=== PATIENT | female | born 1950 | race Caucasian/White ===

== ENCOUNTER 2017-05-16 06:19 | Emergency (ER) | payer MEDICARE, OTHER ==
[~2017-05-16] VITALS: Ht 172.7 cm; Wt 131.5 kg
[~2017-05-16 06:19] MED LIST: ADULT LOW DOSE81 MG PO; ALDACTONE50 MG PO; AMLODIPINE BESYL5 MG PO; ASACOL HD800 MG PO; ASPIRIN EC81 MG PO; CARDIZEM30 MG PO; CEPHALEXIN500 MG PO; DESIPRAMINE HCL25 MG PO; DICLOFENAC SODI75 MG PO; DOXYCYCLINE HY100 MG PO; FUROSEMIDE40 MG PO; HYDROCODONE-CH473 ML PO; HYDROXYCHLOROQ200 MG PO; K-TAB10 MEQ PO; KEFLEX500 MG PO; KLOR-CON 1010 MEQ PO; LEVOTHYROXINE150 MCG PO; LORAZEPAM0.5 MG PO; NORCO 5-325 TA1 EACH PO; NORCO 7.5-3251 EACH PO; NORPRAMIN25 MG PO; OMEPRAZOLE20 MG PO; PLAQUENIL200 MG PO; POTASSIUM CHLO20 ME1 PO; PREDNISONE20 MG PO; PRILOSEC20 MG PO; PROAIR HFA8.5 GM INH; PROBIOTIC ACID1 EAC1 PO; SIMVASTATIN20 MG PO; SIMVASTATIN40 MG PO; SPIRONOLACTONE50 MG PO; TUSSIONEX PENN480 ML PO; VERAPAMIL ER180 M1 PO; VITAMIN D250000 UNIT PO; VITAMIN D5000 UNIT PO
[2017-05-16] MEDS ORDERED: NORCO 5-325 TA1 EACH PO (06:47)
[2017-05-16] MEDS ORDERED: LOSARTAN POTASS50 MG PO (06:50)
[2017-05-16] MEDS ORDERED: CULTURELLE1 EACH PO (06:52)
[2017-05-16] MEDS ORDERED: ASACOL HD800 MG PO (06:52)
[2017-05-16] MEDS ORDERED: IMODIUM A-D2 M2 PO (06:54)
[2017-05-16] MEDS ORDERED: ONDANSETRON ODT8 MG PO (08:15)
== END 2017-05-16 08:30 | disposition home or self-care (01) ==
LOC: ED 06:19
DX: A08.4 Viral intestinal infection, unspecified (principal); I10 Essential (primary) hypertension; K21.9 Gastro-esophageal reflux disease without esophagitis; E03.9 Hypothyroidism, unspecified; E78.5 Hyperlipidemia, unspecified; Z90.710 Acquired absence of both cervix and uterus; Z90.49 Acquired absence of other specified parts of digestive tract; Z90.89 Acquired absence of other organs; Z88.8 Allergy status to other drugs, medicaments and biological substances; Z88.2 Allergy status to sulfonamides; Z91.041 Radiographic dye allergy status; Z88.5 Allergy status to narcotic agent; Z91.048 Other nonmedicinal substance allergy status; Z79.899 Other long term (current) drug therapy; Z79.82 Long term (current) use of aspirin
CPT/HCPCS: 36415; 80053; 81001; 83690; 85025; 96361; 96374; 99284; J2405; J7030

== ENCOUNTER 2017-05-16 21:37 | Observation (INO) | payer MEDICARE, OTHER ==
[~2017-05-16] VITALS: Ht 172.7 cm; Wt 131.2 kg
[~2017-05-16 21:37] MED LIST changes: +CULTURELLE1 EACH PO; +IMODIUM A-D2 M2 PO; +LOSARTAN POTASS50 MG PO; +ONDANSETRON ODT8 MG PO
--- NOTE | 2017-05-17 00:29 | NUR ---
HANDOFF REPORT RECEIVED FROM KRISTINE GARNICA IN ED. PT TO ARRIVE VIA STRETCHER WITH MANAGER OF BUSINESS RN.
--- NOTE | 2017-05-17 00:35 | NUR ---
PT ARRIVES TO MEDICAL SURGICAL FLOOR WITH GL ACCOUNTANT KRISTINE GREEN. APPLIED NON-SLIP SOCKS, ASSISTED PT WITH SBA TO AMBULATE TO RESTROOM FOR LIQUID BM. PT BACK TO BED, BOWEL TONES ACTIVE X 4, PT REPORTS TENDERNESS IN UPPER ABDOMINAL BILATERALLY, LLQ W PALPATION. PT NAUSEOUS, BUT HAS APPETITE, BROUGHT PT JELLO, ICE WATER. PT UP TO RESTROOM AGAIN, INSTRUCTED TO USE CALL LIGHT IN RESTROOM WHEN FINISHED. ANDREWS IN ROOM, TO STAY NIGHT. IVF INFUSING WNL, IV SITE FLUSHES WELL.
--- NOTE | 2017-05-17 01:40 | NUR ---
ADMINISTERED 650 MG ACETAMINOPHEN FOR 01/02 PT REPORTED LING. ADMINISTERED PROTONIX IV, PROVIDED EDUCATION. IVF INFUSING WNL AT 125 ML/HR. PT RESTING, AT BEDSIDE. LIGHTS OFF IN ROOM. PT DENIES REQUESTS AT THIS TIME, INSTRUCTED TO USE CALL LIGHT FOR ANY NEEDS.
--- NOTE | 2017-05-17 01:59 | NUR ---
NURSE IN ROOM
--- NOTE | 2017-05-17 02:48 | NUR ---
CHECKED ON PT, RR 24, APPEARS TO BE SLEEPING, BREATHING NON-LABORED, EYES CLOSED, LIGHTS OFF IN ROOM. IVF INFUSING.
--- NOTE | 2017-05-17 04:49 | NUR ---
IN PT ROOM TO CHECK ON PT. PT LYING IN BED AWAKE. ASSISTED PT TO RESTROOM, INSTRUCTED TO USE CALL LIGHT WHEN FINISHED.
--- NOTE | 2017-05-17 05:07 | NUR ---
PT BACK IN BED. CONTINUES TO HAVE NAUSEA, ADMINISTERED PRN ZOFRAN. BOWEL TONES ACTIVE X 4, ABD SOFT. PT CONTINUES TO HAVE LOOSE STOOL. LUNGS CLEAR THROUGHOUT ALL LOBES. PT REQUESTED FRESH ICE WATER. CALL LIGHT IN REACH. LIGHTS OFF IN ROOM.
--- NOTE | 2017-05-17 06:11 | NUR ---
PT ARRIVED TO MED SURG FLOOR AT 0035, HAS HAD LOOSE BMS THROUGHOUT SHIFT, SLEPT FOR MOST OF MORNING. PT RECEIVED IV ZOFRAN X 1 FOR NAUSEA, HAS HAD NO EMESIS THIS SHIFT. CONTINUES TO RECEIVE IVF WNL. RECEIVED TYLENOL X 1 FOR LING. INDEPENDENT IN ROOM WITH SBA, STEADY ON FEET, USES CALL LIGHT APPROPRIATELY.
--- NOTE | 2017-05-17 06:27 | NUR ---
PATIENT UP TO THE BATHROOM. SHE HAD A LARGE LIQUID STOOL. PATIENT COMPLAINS OF HEARTBURN AND 4/10 PAIN IN HER STOMACH. SHE DENIED THE NEED FOR PAIN MEDICATION. 0700 MEDS ADMINISTERED PER ORDER. PATIENT IS RESTING IN THE BED. DENIES FURTHER NEEDS. HER IS IN THE ROOM. CALL LIGHT IN REACH.
--- NOTE | 2017-05-17 07:30 | NUR ---
RECIEVED REPORT FROM KRISTINE MURILLO. PT ASLEEP AFTER LONG NIGHT. SL. PT APPEARS COMFORTABLE.
--- NOTE | 2017-05-17 07:34 | NUR ---
REPORT RECEIVED FROM KRISTINE MURILLO. PT ASLEEP. IV @125. IN ROOM.
--- NOTE | 2017-05-17 10:15 | NUR ---
PT WALKED TO BATHROOM, VOIDED, STOOL SAMPLE COLLECTED. PT THEN RETURNED TO BED AND IS NOW RESTING SAFELY WITH CALL LIGHT IN REACH. PT WAS OFFERED A SHOWER, SHE SAID SHE WILL THINK ABOUT IT. WILL CHECK AGAIN
--- NOTE | 2017-05-17 10:26 | NUR ---
PT UP TO THE RESTROOM FOR ANOTHER LOOSE STOOL. ABLE TO GET A STOOL SAMPLE THIS TIME.
--- NOTE | 2017-05-17 12:30 | NUR ---
PT SITTING IN BED WITH AT SIDE. WATCHING TV. DENIES CONCERNS.
--- NOTE | 2017-05-17 12:53 | NUR ---
PATIENT HAD A LOOSE CHUNKY BM THAT WAS GREEN SHE GOT IT ALL OVER HER GOWN, AYAKA CARE DONE AND GOWN CHANGED.
--- NOTE | 2017-05-17 14:00 | NUR ---
PT UP TO RESTROOM FOR ANOTHER LOOSE STOOL. VERY SMALL ONE. GREEN. REFILLED ICE WATER.
--- NOTE | 2017-05-17 14:01 | NUR ---
PT IS RESTING IN BED WTIH CALL IN REACH. PT WOULD LIKE TO SHOWER, WILL ASK NURSE TO SLINE LOCK PT.
--- NOTE | 2017-05-17 15:40 | NUR ---
PT IS CURRENTLY SHOWERING HERSELF. LINENS HAVE BEEN CHANGED
--- NOTE | 2017-05-17 15:55 | NUR ---
PT TOOK LONG HOT SHOWER AFTER HER NAP AND NOWS FEELS MUCH BETTER. STATES THAT SHE HAD MORE ENERGY THAN SHE THOUGHT. BACK TO BED WITH CLEAN SHEETS.
--- NOTE | 2017-05-17 18:09 | NUR ---
PATIENT IS LAYING IN BED, WE ORDERED HER A TRAY SHE DIDNT RECIEVE ANYTHING FOR DINNER, SHE ALSO ASKED O USE THE RESTROOM.
--- NOTE | 2017-05-17 18:37 | NUR ---
PT UP TO RESTROOM FOR ANOTHER SMALL LOOSE STOOL. STATES THAT IT SEEMS TO BE SUBSIDING.
--- NOTE | 2017-05-17 20:25 | NUR ---
UP TO BRP WITH ONE ASSIST, VOIDED AND HAD LIQUID BM, NO C/O PAIN OR N/V
--- NOTE | 2017-05-17 20:57 | NUR ---
V/S TAKEN BY KRISTINE BABB. I&O TAKEN. STANDBY ASSISTED TO THE BATHROOM AND BACK TO BED, FAMILY IN THE ROOM.
--- NOTE | 2017-05-17 22:12 | NUR ---
PT UP TO BRP, ONE ASSIST, VOIDED CLEAR YELLOW URINE . HAD LIQUID BM, BACK TO BED, TOLERATED WELL, NO REQUEST
--- NOTE | 2017-05-18 01:54 | NUR ---
up to brp, voided and had liquid bm, no c/o pain, back to bed, one assist, tolerated well, ivf in place
--- NOTE | 2017-05-18 02:43 | NUR ---
V/S I&O FOR 0200 AND WT DONE.
--- NOTE | 2017-05-18 05:39 | NUR ---
V/S I&O DONE. STANDBY ASSISTED PATIENT TO BATHROOM AND BACK TO BED. PATIENT DID NOT NEED ANYTHING AT THE MOMENT.
--- NOTE | 2017-05-18 06:06 | NUR ---
PT CURRENTLY RESTING. HAS CONTINUESD TO HAVE FREQUENCY OF URINATION AND LIQUID STOOLS. GETS UP WITH ONE ASSIST , IVF INFUSING W/O PROBLEMS. NO C/O PAIN OR N/C THIS SHIFT. NO REQUESTS. COOPERATIVE WITH PROCEDURE. AT BEDSIDE
--- NOTE | 2017-05-18 06:38 | NUR ---
PT C/O H/A. MEDICATED WITH TYLENOL 650MG PO. AWAKE, PLEASANT, NO OTHER REQUESTS, NO C/O N/V, TOLERATING CLEAR LIQUIDS DIET WELL
--- NOTE | 2017-05-18 07:57 | NUR ---
REPORT RECIEVED FROM KRISTINE BABB. PT AWAKE AND STATES THAT SHE HOPES TO GO HOME TODAY AFTER TRYING AN ADVANCED DIET. STATES THAT HER DIAHRREA HAS DECREASED.
--- NOTE | 2017-05-18 10:22 | NUR ---
PT STATES THE MAG RIDER BURNED EVEN WHEN RUNNING CONCURRENT. MAG DONE, NOW RUNNING K.
--- NOTE | 2017-05-18 11:34 | NUR ---
CALLED DR DESAI TO ASK FOR ADVANCED DIET PER PT REQUEST. HE ORDERED REG. ADVISED PT TO GO SLOW AND ORDER SOMETHING EASILY DIGESTABLE. CHARGE GOT SECOND IV IN RIGHT HAND AND PT STATES IT FEELS A LITTLE BETTER BUT STILL CAMEJO.
--- NOTE | 2017-05-18 14:53 | NUR ---
PT REPORTED TO REALTY SPECIALIST SHE HAD MORE DIAHRREA, THOUGHT IT WAS COMING FROM THE IV MAG RIDER. CALLED PHARM, NOT LISTED A SIDE EFFECT.
--- NOTE | 2017-05-18 16:12 | NUR ---
[facility] LAB CAME TO DRAW AT 10 TO 1600. AWAITING RESULTS.
--- NOTE | 2017-05-18 16:25 | NUR ---
PT HOPES TO GO HOME THIS EVENING IF LABS STABLIZE. NEW IV STARTED THIS AFTERNOON. GIVEN MULTIPLE K+ AND MAG RIDERS TODAY.
[2017-05-18] MEDS ORDERED: K-TAB10 MEQ PO (16:37)
--- NOTE | 2017-05-18 16:46 | NUR ---
CALLED DR DESAI REGARDING LAB RESULTS. HE IS WRITING DISCHARGE ORDERS AND A SCRIPT FOR FOLLOW UP LAB WORK.
== END 2017-05-18 17:40 | disposition home or self-care (01) ==
LOC: ED 21:37 → MS 21:39
PROVIDERS: ADMIT Internal Medicine
DX: A08.4 Viral intestinal infection, unspecified (principal); E87.6 Hypokalemia; E83.42 Hypomagnesemia; I10 Essential (primary) hypertension; K21.9 Gastro-esophageal reflux disease without esophagitis; E03.9 Hypothyroidism, unspecified; E78.5 Hyperlipidemia, unspecified; I73.00 Raynaud's syndrome without gangrene; M19.90 Unspecified osteoarthritis, unspecified site; K51.90 Ulcerative colitis, unspecified, without complications; K44.9 Diaphragmatic hernia without obstruction or gangrene; M06.9 Rheumatoid arthritis, unspecified; Z79.1 Long term (current) use of non-steroidal anti-inflammatories (NSAID); Z79.82 Long term (current) use of aspirin; Z79.891 Long term (current) use of opiate analgesic; Z79.899 Other long term (current) drug therapy; Z88.5 Allergy status to narcotic agent; Z88.2 Allergy status to sulfonamides; Z88.8 Allergy status to other drugs, medicaments and biological substances; Z88.1 Allergy status to other antibiotic agents; Z91.041 Radiographic dye allergy status
CPT/HCPCS: 36415; 80048; 80053; 81001; 83735; 85025; 87045; 87046; 87088; 87493; 96361; 96365; 96366; 96367; 96374; 96375; 96376; 99285; G0378; J2405; J3475; J3480; J7030

== ENCOUNTER 2017-06-12 03:03 | Emergency (ER) | payer MEDICARE, OTHER ==
[~2017-06-12] VITALS: Ht 172.7 cm; Wt 128.4 kg
[2017-06-12] MEDS ORDERED: VITAMIN D3400 UNI1 PO (03:34)
[2017-06-12] MEDS ORDERED: COZAAR50 MG PO (03:34)
[2017-06-12] MEDS ORDERED: TRAMADOL HCL50 MG PO (06:40)
--- NOTE | 2017-06-13 07:17 | EKG ---
[facility] [address] [address] Signed Sinus tachycardia with premature atrial complexes Otherwise normal ECG No previous ECGs available Confirmed by DOV ALMAZAN MD ([id number]) on 06/13/2017 7:17:08 AM Electronically Signed By: DOV ALMAZAN MD 06/13/17 0717 PATIENT NAME: JESUS JUAREZ Electrocardiogram DATE OF : 50 PHYSICIAN: DOV ALMAZAN MD REPORT #: [id number] REPORT IS CONFIDENTIAL AND NOT TO BE RELEASED WITHOUT AUTHORIZATION
== END 2017-06-12 06:46 | disposition home or self-care (01) ==
LOC: ED 03:03
DX: R07.89 Other chest pain (principal); I10 Essential (primary) hypertension; K21.9 Gastro-esophageal reflux disease without esophagitis; E03.9 Hypothyroidism, unspecified; E78.5 Hyperlipidemia, unspecified; Z88.8 Allergy status to other drugs, medicaments and biological substances; Z88.2 Allergy status to sulfonamides; Z88.5 Allergy status to narcotic agent; Z79.899 Other long term (current) drug therapy; Z79.2 Long term (current) use of antibiotics
CPT/HCPCS: 71045; 71260; 80053; 83880; 84484; 85025; 85379; 93005; 93010; 96374; 99284; J1885; Q9967

== ENCOUNTER 2018-01-10 20:24 | Emergency (ER) | payer MEDICARE, OTHER ==
[~2018-01-10] VITALS: Ht 172.7 cm; Wt 128.4 kg
--- OUTSIDE RECORDS SUMMARY | ~2018-01-10 | XMS | Clinical Summary ---
Demographics + + + | Address | [address] | | | [place] [address] | + + + | Home Phone | | + + + | Preferred Language | Unknown | + + + | Marital Status | | + + + | Nondenominational Affiliation | Unknown | + + + | Race | Unknown | + + + | Ethnic Group | Unknown | + + + Author + + + | Author | [facility] | | | and [place] | + + + | Organization | [facility] | | | and [place] | + + + | Address | Unknown | + + + | Phone | Unavailable | + + + Support + + +---------+ + | Name | Relationship | Address | Phone | + + +---------+ + | Tamri Prescott | Unknown | | + + +---------+ + | Torsten Bird | ECON | Unknown | | + + +---------+ + Care Team Providers + +------+ + | Care Civil Rights Investigator Name | Role | Phone | + [...] | | Activ | | (VITAMIN D2) [id number] | mouth Once a week. | | [...] + + | MEDICARE | MEDICA | [id number] | Medica | [phone] | | | RE | | re | [phone] | | | | PART A | | | | | | | AND B | | | | | + +--------+ +--------+ + + | MODA | MODA | [id number] | Indemn | [phone] | [address] [address] | | | HEALTH | | ity | [phone] | [place], [place] [address] | | | MDCR | | | [...] | [phone] | [place] [address] | | | tremaine | | | [phone] | | + +--------+ +--------+ + +
--- OUTSIDE RECORDS SUMMARY | ~2018-01-10 | XMS | Clinical Summary ---
Demographics + + + | Address | [address] | | | [place] [address] | + + + | Home Phone | | + + + | Preferred Language | Unknown | + + + | Marital Status | | + + + | Yazidism Affiliation | Unknown | + + + | Race | Unknown | + + + | Ethnic Group | Unknown | + + + Author + + + | Author | [facility] | | | and [place] | + + + | Organization | [facility] | | | and [place] | [...] Team Providers + +------+ + | Care Real Estate Services Administrator Name | Role | Phone | + [...] | | Activ | | (VITAMIN D2) [id number] | mouth Once a week. | | [...] + + | MEDICARE | MEDICA | [id number] | Medica | [phone] | | | RE | | re | [phone] | | | | PART A | | | | | | | AND B | | | | | + +--------+ +--------+ + + | MODA | MODA | [id number] | Indemn | [phone] | [address] [address] | | | HEALTH | | ity | [phone] | [place], [place] [address] | | | MDCR | | | [...] | [phone] | [place] [address] | | | tremaine | | | [phone] | | + +--------+ +--------+ + +
[~2018-01-10 20:24] MED LIST changes: +COZAAR50 MG PO; +TRAMADOL HCL50 MG PO; +VITAMIN D3400 UNI1 PO
[2018-01-10] MEDS ORDERED: SPIRONOLACTONE50 MG PO (20:50)
[2018-01-10] MEDS ORDERED: FUROSEMIDE40 MG PO (20:51)
[2018-01-10] MEDS ORDERED: LOSARTAN POTASS50 MG PO (20:52)
[2018-01-10] MEDS ORDERED: DICLOFENAC SOD100 G1 TOP (20:53)
[2018-01-10] MEDS ORDERED: ASPIR-LOW81 MG PO (20:55)
[2018-01-11] MEDS ORDERED: NORCO 5-325 TA1 EACH PO (10:28)
--- NOTE | 2018-01-11 11:37 | EKG ---
[facility] [address] [facility] [place] [address] Signed Sinus tachycardia with premature atrial complexes in a pattern of bigeminy Otherwise normal ECG When compared with ECG of 12-JUN-2017 03:12, Questionable change in QRS axis T wave inversion now evident in Inferior leads QT has shortened Confirmed by HERB DESAI MD ([id number]) on 01/11/2018 11:36:37 AM Electronically Signed By: HERB DESAI MD 01/11/18 1137 PATIENT NAME: JESUS JUAREZ JANIE Electrocardiogram DATE OF : 50 PHYSICIAN: HERB DESAI MD REPORT #: [id number] REPORT IS CONFIDENTIAL AND NOT TO BE RELEASED WITHOUT AUTHORIZATION
== END 2018-01-10 23:33 | disposition home or self-care (01) ==
LOC: ED 20:24
DX: R07.9 Chest pain, unspecified (principal); I10 Essential (primary) hypertension; K21.9 Gastro-esophageal reflux disease without esophagitis; E78.5 Hyperlipidemia, unspecified; E11.9 Type 2 diabetes mellitus without complications; Z87.891 Personal history of nicotine dependence; Z88.2 Allergy status to sulfonamides; Z88.8 Allergy status to other drugs, medicaments and biological substances; Z88.1 Allergy status to other antibiotic agents; Z79.899 Other long term (current) drug therapy; Z88.5 Allergy status to narcotic agent; Z79.82 Long term (current) use of aspirin
CPT/HCPCS: 71045; 80053; 83735; 84484; 85025; 93005; 93010; 99285

== ENCOUNTER 2018-01-11 08:28 | Emergency (ER) | payer MEDICARE, OTHER ==
[~2018-01-11] VITALS: Ht 172.7 cm; Wt 128.4 kg
--- OUTSIDE RECORDS SUMMARY | ~2018-01-11 | XMS | Clinical Summary ---
Demographics + + + | Address | [address] | | | [place] [address] | + + + | Home Phone | | + + + | Preferred Language | Unknown | + + + | Marital Status | | + + + | Zoroastrian Affiliation | Unknown | + + + | Race | Unknown | + + + | Ethnic Group | Unknown | + + + Author + + + | Author | [facility] | | | and [place] | + + + | Organization | [facility] | | | and [place] | + + + | Address | Unknown | + + + | Phone | Unavailable | + + + Support + + +---------+ + | Name | Relationship | Address | Phone | + + +---------+ + | Tamir Prescott | Unknown | | + + +---------+ + | Torsten Bird | ECON | Unknown | | + + +---------+ + Care Team Providers + +------+ + | Care Stud Setter Name | Role | Phone | + +------+ + | Jony Shi MD | PP | | + +------+ + Allergies + [...] Meclofenamate | Hives, Rash | Low | 10/25/20 | | | | | | 17 | | + + + + + + | Nifedipine | Other (See Comments) | Low | 10/25/20 | Reaction: Malaise | | | | | 17 | | + + + + + + | Sulfamethoxazole-Tri | Hives, Rash | Low | 10//20 | | | methoprim | | | 17 | | + + + + + + | Verapamil Hcl Er | Other (See Comments) | Low | 10/25/20 | Reaction: | | | | | 17 | Dizziness | + + + + + + Current Medications + + +--------+---------+------+------+-------+ | Prescription | Sig. | Disp. | Refills | Star | End | Statu | | | | | | t | Date | s | | | | | | Date | | | + + +--------+---------+------+------+-------+ | mesalamine (ASACOL | Take 800 mg by mouth | | | | | Activ | | HD) [address] | 3 times daily. | | | | | e | | tablet | | | | | | | + + +--------+---------+------+------+-------+ | aspirin 81 mg | Take 81 mg by mouth | | | | | Activ | | chewable tablet | Daily. | | | | | e | + + +--------+---------+------+------+-------+ | desipramine | Take 25 mg by mouth | | | | | Activ | | (NOPRAMIN) 25 mg | nightly. | | | | | e | | tablet | | | | | | | + + +--------+---------+------+------+-------+ | diclofenac | Take 75 mg by mouth | | | | | Activ | | (VOLTAREN) 75 mg EC | 2 times daily. | | | | | e | | tablet | | | | | | | + + +--------+---------+------+------+-------+ | ergocalciferol | Take 50,000 Units by | | | | | Activ | | (VITAMIN D2) 71178 | mouth Once a week. | | | | | e | | units capsule | | | | | | | + + +--------+---------+------+------+-------+ | furosemide (LASIX) | Take 40 mg by mouth | | | | | Activ | | 40 mg tablet | 2 times daily. | | | | | e | + + +--------+---------+------+------+-------+ | hydroxychloroquine | Take 200 mg by mouth | | | | | Activ | | (PLAQUENIL) 200 mg | Daily. | | | | | e | | tablet | | | | | | | + + +--------+---------+------+------+-------+ | loperamide | Take 2 mg by mouth 4 | | | | | Activ | | (IMODIUM) 2 mg | times daily as | | | | | e | | capsule | needed for Diarrhea. | | | | | | + + +--------+---------+------+------+-------+ | levothyroxine | Take 150 mcg by | | | | | Activ | | (SYNTHROID) 150 mcg | mouth every morning | | | | | e | | tablet | (before breakfast). | | | | | | + + +--------+---------+------+------+-------+ | nitroglycerin | Place 0.4 mg under | | | | | Activ | | (NITROSTAT) 0.4 mg | the tongue every 5 | | | | | e | | SL tablet | minutes as needed | | | | | | | | for Chest pain. | | | | | | + + +--------+---------+------+------+-------+ | omeprazole | Take 20 mg by mouth | | | | | Activ | | (PRILOSEC) 20 mg | every morning | | | | | e | | capsule | (before breakfast). | | | | | | + + +--------+---------+------+------+-------+ | potassium chloride | Take 20 mEq by mouth | | | | | Activ | | 20 mEq/15 mL liquid | Daily. | | | | | e | + + +--------+---------+------+------+-------+ | albuterol | Inhale 2 puffs into | | | | | Activ | | (PROVENTIL HFA) 90 | the lungs every 6 | | | | | e | | mcg/puff inhaler | hours as needed for | | | | | | | | Wheezing. | | | | | | + + +--------+---------+------+------+-------+ | simvastatin | Take 20 mg by mouth | | | | | Activ | | (ZOCOR) 20 mg tablet | nightly. | | | | | e | + + +--------+---------+------+------+-------+ | spironolactone | Take 50 mg by mouth | | | | | Activ | | (ALDACTONE) 50 mg | Daily. | | | | | e | | tablet | | | | | | | + + +--------+---------+------+------+-------+ | acetaminophen | Take 650 mg by mouth | | | | | Activ | | (TYLENOL) 325 mg | every 4 hours as | | | | | e | | tablet | needed for Pain. | | | | | | + + +--------+---------+------+------+-------+ | ondansetron | Take 1 tablet by | 2 | 0 | 10/3 | | Activ | | (ZOFRAN) 4 mg tablet | mouth as needed for | tablet | | 0/20 | | e | | | Nausea. Begin bowel | | | 17 | | | | | prep, if nausea, | | | | | | | | stop prep, take med | | | | | | | | and restart prep 1 | | | | | | | | hr later. | | | | | | + + +--------+---------+------+------+-------+ | lactobacillus GG | Take 1 capsule by | | | | | Activ | | (CULTURELLE) capsule | mouth Daily. | | | | | e | + + +--------+---------+------+------+-------+ Active Problems + + + | Problem | Noted Date | + + + | Change in bowel habits | 04/22/2017 | + + + | GERD (gastroesophageal reflux disease) | 04/22/2017 | + + + | Diarrhea | 04/22/2017 | + + + | Class 3 obesity in adult | 04/22/2017 | + + + Family History + + +------+ + | Medical History | Relation | Name | Comments | + + +------+ + | Heart attack | Maternal | | | | | Grandfath | | | | | er | | | + + +------+ + | Breast cancer | Maternal | | | | | Grandmoth | | | | | er | | | + + +------+ + | Breast cancer | Mother | | | + + +------+ + + +------+ + + | Relation | Name | Status | Comments | + +------+ + + | Father | | | | + +------+ + + | Maternal Grandfather | | | | + +------+ + + | Maternal Grandmother | | | | + +------+ + + | Mother | | | | + +------+ + + Social History + + + [...] + +---------+ + | Alcohol Use | Drinks/We | oz/Week | Comments | | | ek | | | + + +---------+ + | No | | | | + + +---------+ + + + + | Sex Assigned at | Date Recorded | | | | + + + | Not on file | | + + + Last Filed Vital Signs + + + + | Vital Sign | Reading | Time Taken | + + + + | Blood Pressure | 156/84 | 04/23/20171314 PST | + + + + | Pulse | 95 | 04/23/20171314 PST | + + + + | Temperature | 36.6 C (97.9 F) | 04/23/20171249 PST | + + + + | Respiratory Rate | 16 | 04/23/20171314 PST | + + + + | Oxygen Saturation | 99% | 04/23/20171314 PST | + + + + | Inhaled Oxygen | - | - | | Concentration | | | + + + + | Weight | 128 kg (282 lb 3 oz) | 04/23/20171100 PST | + + + + | Height | 172.7 cm (5' 8") | 04/23/20171100 PST | + + + + | Body Mass Index | 42.91 | 04/23/20171100 PST | + + + + Plan of Treatment + + + + + | Health Maintenance | Due Date | Last Done | Comments | + + + + + | Hepatitis C | | | | | Screening | 0 | | | + + + + + | Vaccine: | | | | | Dtap/Tdap/Td (1 - | 9 | | | | Tdap) | | | | + + + + + | BREAST CANCER | | | | | SCREENING (MAMM Q2 | 0 | | | | YEARS 50-74) | | | | + + + + + | Vaccine: | | | | | Pneumococcal 65+ | 5 | | | | Low/Medium Risk (1 | | | | | of 2 - PCV13) | | | | + + + + + | Vaccine: Influenza | | | | | (#1) | 8 | | | + + + + + | Colorectal Cancer | | 04/23/2017, 05/26/2008 | | | Screening | 7 | | | | (Colonoscopy) | | | | + + + + + Results Not on filefrom Last 3 Months Insurance + +--------+ +--------+ + + | Payer | Benefi | Subscriber | Type | Phone | Address | | | t Plan | ID | | | | | | / | | | | | | | Group | | | | | + +--------+ +--------+ + + | MEDICARE | MEDICA | [id number] | Medica | [phone] | | | RE | | re | [phone] | | | | PART A | | | | | | | AND B | | | | | + +--------+ +--------+ + + | MODA | MODA | [id number] | Indemn | [phone] | [address] [address] | | | HEALTH | | ity | [phone] | [place], [place] [address] | | | MDCR | | | | | | | SUPPL | | | | | + +--------+ +--------+ + + + +--------+ +--------+ + + | Guarantor Name | Accoun | Relation to | Date | Phone | Billing Address | | | t Type | Patient | of | | | | | | | | | | + +--------+ +--------+ + + | VANESA PRESCOTT | Person | Self [birth year] Home: | [address] | | | al/Fam | | [phone] | [phone] | [place] [address] | | | tremaine | | | [phone] | | + +--------+ +--------+ + +
--- OUTSIDE RECORDS SUMMARY | ~2018-01-11 | XMS | Clinical Summary ---
Demographics + + + | Address | [address] | | | [place] [address] | + + + | Home Phone | | + + + | Preferred Language | Unknown | + + + | Marital Status | | + + + | Congregational Affiliation | Unknown | + + + | Race | Unknown | + + + | Ethnic Group | Unknown | + + + Author + + + | Author | [facility] | | | and [place] | + + + | Organization | [facility] | | | and [place] [...] Team Providers + +------+ + | Care Regional Account Manager Name | Role | Phone | [...] | | Activ | | (VITAMIN D2) [id number] | mouth Once a week. | | [...] + + | MEDICARE | MEDICA | [id number] | Medica | [phone] | | | | RE | | re | [phone] | | | | PART A | | | | | | | AND B | | | | | + +--------+ +--------+ + + | MODA | MODA | [id number] | Indemn | [phone] | [address] [address] | | | HEALTH | | ity | [phone] | [place], [place] [address] | | | MDCR | | | [...] | [phone] | [place] [address] | | | tremaine | | | [phone] | | + +--------+ +--------+ + +
[~2018-01-11 08:28] MED LIST changes: +ASPIR-LOW81 MG PO; +DICLOFENAC SOD100 G1 TOP
[2018-01-11] MEDS ORDERED: NORCO 5-325 TA1 EACH PO (10:28)
--- NOTE | 2018-01-11 11:38 | EKG ---
[facility] [address] [facility] [place] [address] Signed Normal sinus rhythm Normal ECG When compared with ECG of 10-JAN-2018 20:43, (Unconfirmed) premature atrial complexes are no longer present Questionable change in QRS axis T wave inversion no longer evident in Inferior leads Nonspecific T wave abnormality now evident in Lateral leads Confirmed by HERB DESAI MD ([id number]) on 01/11/2018 11:37:35 AM Electronically Signed By: HERB DESAI MD 01/11/18 1138 PATIENT NAME: JESUS JUAREZ Electrocardiogram DATE OF : 50 PHYSICIAN: HERB DESAI MD REPORT #: [id number] REPORT IS CONFIDENTIAL AND NOT TO BE RELEASED WITHOUT AUTHORIZATION
== END 2018-01-11 11:05 | disposition home or self-care (01) ==
LOC: ED 08:28
DX: R07.89 Other chest pain (principal); M25.512 Pain in left shoulder; I10 Essential (primary) hypertension; Z88.8 Allergy status to other drugs, medicaments and biological substances; Z88.2 Allergy status to sulfonamides; Z88.5 Allergy status to narcotic agent; Z79.899 Other long term (current) drug therapy; Z79.82 Long term (current) use of aspirin
CPT/HCPCS: 36415; 84484; 93005; 93010; 96374; 99285; J1885

== ENCOUNTER → 2018-11-23 | Emergency (ER) | payer MEDICARE, OTHER ==
[~2018-11-23] VITALS: Ht 172.7 cm; Wt 125.3 kg
[~2018-11-23] MED LIST changes: +K-TAB ER20 MEQ PO; +METFORMIN HCL500 M1 PO
--- OUTSIDE RECORDS SUMMARY | 2018-11-23 00:50 | XMS ---
PreManage Notification: JESUS JUAREZ Security Business Education Professor Events No recent Security Events currently on file CRITERIA MET - [facility] CARE PROVIDERS DANIEL CHAVIRA Internal Medicine 01/12/2018-Current PHONE: Unknown Jony Shi MD Primary Care Current PHONE: Unknown orbritany Cardenas or Traffic Lieutenant Current PHONE: Unknown Kaycee SHI Current PHONE: Unknown Chandrika has no Care Guidelines for this patient. Care History Medical/Surgical 01/12/2018 [facility] - Patient is currently established with [facility]. If patient is seen in the ED during business hours. Please contact CHWs at [facility]. Care Recommendation: This patient has had 5 or more Emergency Department visits in the last 12 months.\T\nbsp; Patient requires education on the scope and purpose of the ED as an acute care provider not a Primary Care Provider and should not be utilized for chronic conditions.\T\nbsp; These are guidelines and the provider should exercise clinical judgment when providing care. E.D. VISIT COUNT (12 MO.) 3 [facility]. TOTAL 3 NOTE: Visits indicate total known visits. ED/UCC VISIT TRACKING (12 MO.) 11/23/2018 00:48 [facility] TYPE: Emergency COMPLAINT: - SHOULDER AND BACK PAIN 01/11/2018 08:29 [facility] TYPE: Emergency COMPLAINT: - L SHOULDER PAIN,CHEST PAIN/ NON INJURY DIAGNOSES: - Allergy status to other drugs, medicaments and biological substances status - Allergy status to sulfonamides status - Allergy status to narcotic agent status - Essential (primary) hypertension - Chest pain, unspecified - detention (current) use of aspirin - Other terminal manager (current) drug therapy - Other chest pain - Pain in left shoulder 01/10/2018 20:25 [facility] TYPE: Emergency COMPLAINT: - DIFFICUTLY BREATHING/PAIN IN L SHOULDER DIAGNOSES: - Type 2 diabetes mellitus without complications - Allergy status to narcotic agent status - Essential (primary) hypertension - Hyperlipidemia, unspecified - Other shelter (current) drug therapy - Gastro-esophageal reflux disease without esophagitis - Allergy status to other drugs, medicaments and biological substances status - Allergy status to other antibiotic agents status - Chest pain, unspecified - Allergy status to sulfonamides status - Shortness of breath - Personal history of nicotine dependence - detention (current) use of aspirin INPATIENT VISIT TRACKING (12 MO.) No inpatient visits to display in this time frame [email or web address]
--- NOTE | 2018-11-23 15:18 | EKG ---
[facility] [address] [facility] [place], [place] [address] Signed Normal sinus rhythm Nonspecific T wave abnormality Abnormal ECG When compared with ECG of 11-JAN-2018 08:32, No significant change was found Confirmed by MARIELLE JOHNSON DO ([id number]) on 11/23/2018 3:18:12 PM Electronically Signed By: MARIELLE JOHNSON DO 11/23/18 1518 PATIENT NAME: JESUS JUAREZ Electrocardiogram DATE OF : 50 PHYSICIAN: MARIELLE JOHNSON DO REPORT #: [id number] REPORT IS CONFIDENTIAL AND NOT TO BE RELEASED WITHOUT AUTHORIZATION
== END ==
LOC: ED 00:48
DX: R07.89 Other chest pain (principal); I10 Essential (primary) hypertension; E11.9 Type 2 diabetes mellitus without complications; Z87.891 Personal history of nicotine dependence; Z90.49 Acquired absence of other specified parts of digestive tract; Z90.710 Acquired absence of both cervix and uterus; Z88.1 Allergy status to other antibiotic agents; Z88.2 Allergy status to sulfonamides; Z88.5 Allergy status to narcotic agent; Z88.8 Allergy status to other drugs, medicaments and biological substances; Z91.048 Other nonmedicinal substance allergy status; E78.5 Hyperlipidemia, unspecified; Z79.82 Long term (current) use of aspirin; Z79.84 Long term (current) use of oral hypoglycemic drugs; Z79.899 Other long term (current) drug therapy
CPT/HCPCS: 71046; 80053; 84484; 85025; 93005; 93010; 96374; 99285-25; J1885

== ENCOUNTER 2019-04-10 08:13 | Emergency (ER) | payer MEDICARE, OTHER ==
[~2019-04-10] VITALS: Ht 172.7 cm; Wt 125.3 kg
--- OUTSIDE RECORDS SUMMARY | ~2019-04-10 | XMS | Encounter Summary ---
Demographics + + + | Address | [address] | | | [place] [address] | + + + | Home Phone | | + + + | Preferred Language | Unknown | + + + | Marital Status | | + + + | Hoahaoism Affiliation | 1061 | + + + | Race | Unknown | + + + | Ethnic Group | Unknown | + + + Author + + + | Author | [facility] | | | and [place] | + + + | Organization | [facility] | | | and [place] | + + + | Address | Unknown | + + + | Phone | Unavailable | + + + Support + + +---------+ + | Name | Relationship | Address | Phone | + + +---------+ + | Tamir Prescott | ECON | Unknown | | + + +---------+ + Care Team Providers + +------+ + | Care Skip Miner Blasting Name | Role | Phone | + +------+ + | Renaldo Nolasco MD | PCP | | + +------+ + Reason for Visit + + + | Reason | Comments | + + + | Medication | Budesonide | | Management | | + + + Encounter Details +--------+ + + + + | Date | Type | Department | Care Team | Description | +--------+ + + + + | 07/20/ | Telephone | [facility] | Manny Puentes MD | Medication | | 2019 | | GASTROENTEROLOGY | [address] | Management | | | | [address] [place] | [address] [place], [place] | (Budesonide) | | | | [address] [place], [place] | [address] | | | | | [address] | | | | | | [phone] | | | +--------+ + + + + Social History + + + +--------+ + | Tobacco Use | Types | Packs/Day | Years | Date | | | | | Used | | + + + +--------+ + | Former Smoker | Cigarettes | | 10 | Quit: 05/26/1983 | + + + +--------+ + + +---+---+---+ | Smokeless Tobacco: | | | | | Never Used | | | | + +---+---+---+ + + +---------+ + | Alcohol Use | Drinks/Week | oz/Week | Comments | + + +---------+ + | Yes | | | Rarely | + + +---------+ + + + + | Sex Assigned at | Date Recorded | | | | + + + | Not on file | | + + + + + + + | Job Start Date | Occupation | Industry | + + + + | Not on file | Not on file | Not on file | + + + + + + + + | Travel History | Travel Start | Travel End | + + + + + + | No recent travel history available. | + + documented as of this encounter Plan of Treatment Not on filedocumented as of this encounter Visit Diagnoses Not on filedocumented in this encounter"
--- OUTSIDE RECORDS SUMMARY | ~2019-04-10 | XMS | Encounter Summary ---
Demographics + + + | Address | [address] | | | [place] [address] | + + + | Home Phone | | + + + | Preferred Language | Unknown | + + + | Marital Status | | + + + | Yarsani Affiliation | 1061 | + + + | Race | Unknown | + + + | Ethnic Group | Unknown | + + + Author + + + | Author | [facility] | | | and [place] | + + + | Organization | [facility] | | | and [...] Team Providers + +------+ + | Care Lunch Truck Driver Name | Role | Phone | + +------+ + | Jony Shi MD | PCP | | + +------+ + Encounter Details +--------+ + + + + | Date | Type | Department | Care Team | Description | +--------+ + + + + | 03/19/ | Abstract | [facility] [place] | Manny Puentes MD | | | 2016 | | GASTROENTEROLOGY | [address] | | | | | [address] [place] | [address] [place] | | | | | [address] [place] | [address] | | | | | [address] | | | | | | [phone] | | | +--------+ + + + + Social History + +-------+ +--------+------+ | Tobacco Use | Types | Packs/Day | Years | Date | | | | | Used | | + +-------+ +--------+------+ | Never Smoker | | | | | + +-------+ +--------+------+ + +---+---+---+ | Smokeless Tobacco: | | | | | Never Used | | | | + +---+---+---+ + + +---------+ + | Alcohol Use | Drinks/Week | oz/Week | Comments | + + +---------+ + | No | | | | + + +---------+ + + + [...] + + documented as of this encounter Last Filed Vital Signs + + + + + | Vital Sign | Reading | Time Taken | Comments | + + + + + | Blood Pressure | - | - | | + + + + + | Pulse | - | - | | + + + + + | Temperature | - | - | | + + + + + | Respiratory Rate | - | - | | + + + + + | Oxygen Saturation | - | - | | + + + + + | Inhaled Oxygen | - | - | | | Concentration | | | | + + + + + | Weight | 129.8 kg (286 lb 3.2 | 03/19/2017 5:33 PM | | | | oz) | PDT | | + + + + + | Height | 172.7 cm (5' 8") | 03/19/2017 5:33 PM | | | | | PDT | | + + + + + | Body Mass Index | 43.52 | 03/19/2017 5:33 PM | | | | | PDT | | + + + + + documented in this encounter Plan of Treatment Not on filedocumented as of this encounter Visit Diagnoses Not on filedocumented in this encounter
--- OUTSIDE RECORDS SUMMARY | ~2019-04-10 | XMS | Clinical Summary ---
Demographics + + + | Address | [address] | | | [place] [address] | + + + | Home Phone | | + + + | Preferred Language | Unknown | + + + | Marital Status | | + + + | Faith Affiliation | 1061 | + + + | Race | Unknown | + + + | Ethnic Group | Unknown | + + + Author + + + | Author | [facility] | | | and [place] | + + + | Organization | [facility] | | | and [...] Team Providers + +------+ + | Care Creative Project Manager Name | Role | Phone | + +------+ + | Renaldo Nolasco MD | PCP | | + +------+ + Allergies + + + + + + | Active Allergy | Reactions | Severity | Noted | Comments | | | | | Date | | + + + + + + | Adhesive & Tape | Other (See Comments) | Low | 04/22/20 | Redness on skin | | | | | 17 | | + + + + + + | Codeine | Other (See Comments) | Low | 03/19/20 | Reaction: | | | | | 17 | Intolerance stomach | | | | | | pain | + + + + + + | Diatrizoate | Diarrhea, Nausea And | Low | 03/19/20 | | | Meglumine & Sodium | Vomiting | | 17 | | + + + + + + | Iodinated Diagnostic | Diarrhea, Nausea | Low | 02/06/20 | Contrast dye | | Agents | Only | | 17 | | + + + + + + | Meclofenamate | Hives, Rash | Low | 03/19/20 | | | | | | 17 | | + + + + + + | Nifedipine | Other (See Comments) | Low | 03/19/20 | Reaction: Malaise | | | | | 17 | | + + + + + + | Sulfamethoxazole-Tri | Hives, Rash | Low | 03/19/20 | | | methoprim | | | 17 | | + + + + + + | Verapamil Hcl Er | Other (See Comments) | Low | 03/19/20 | Reaction: | | | | | 17 | Dizziness | + + + + + + Medications + + + +---------+------+------+-------+ | Medication | Sig | Dispensed | Refills | Star | End | Statu | | | | | | t | Date | s | | | | | | Date | | | + + + +---------+------+------+-------+ | mesalamine (ASACOL | Take 800 mg by | | 0 | | | Activ | | HD) [address] | mouth. Patient takes | | | | | e | | tablet | once or twice daily | | | | | | + + + +---------+------+------+-------+ | aspirin 81 mg | Take 81 mg by mouth | | 0 | | | Activ | | chewable tablet | Daily. | | | | | e | + + + +---------+------+------+-------+ | desipramine | Take 25 mg by mouth | | 0 | | | Activ | | (NOPRAMIN) 25 mg | nightly. | | | | | e | | tablet | | | | | | | + + + +---------+------+------+-------+ | furosemide (LASIX) | Take 40 mg by mouth | | 0 | | | Activ | | 40 mg tablet | 2 times daily. | | | | | e | + + + +---------+------+------+-------+ | hydroxychloroquine | Take 200 mg by mouth | | 0 | | | Activ | | (PLAQUENIL) 200 mg | Daily. | | | | | e | | tablet | | | | | | | + + + +---------+------+------+-------+ | loperamide | Take 2 mg by mouth 4 | | 0 | | | Activ | | (IMODIUM) 2 mg | times daily as | | | | | e | | capsule | needed for Diarrhea. | | | | | | + + + +---------+------+------+-------+ | levothyroxine | Take 150 mcg by | | 0 | | | Activ | | (SYNTHROID) 150 mcg | mouth every morning | | | | | e | | tablet | (before breakfast). | | | | | | + + + +---------+------+------+-------+ | nitroglycerin | Place 0.4 mg under | | 0 | | | Activ | | (NITROSTAT) 0.4 mg | the tongue every 5 | | | | | e | | SL tablet | minutes as needed | | | | | | | | for Chest pain. | | | | | | + + + +---------+------+------+-------+ | omeprazole | Take 20 mg by mouth | | 0 | | | Activ | | (PRILOSEC) 20 mg | every morning | | | | | e | | capsule | (before breakfast). | | | | | | + + + +---------+------+------+-------+ | albuterol | Inhale 2 puffs into | | 0 | | | Activ | | (PROVENTIL HFA) 90 | the lungs every 6 | | | | | e | | mcg/puff inhaler | hours as needed for | | | | | | | | Wheezing. | | | | | | + + + +---------+------+------+-------+ | simvastatin | Take 20 mg by mouth | | 0 | | | Activ | | (ZOCOR) 20 mg tablet | nightly. | | | | | e | + + + +---------+------+------+-------+ | spironolactone | Take 25 mg by mouth | | 0 | | | Activ | | (ALDACTONE) 50 mg | 2 times daily. | | | | | e | | tablet | | | | | | | + + + +---------+------+------+-------+ | acetaminophen | Take 650 mg by mouth | | 0 | | | Activ | | (TYLENOL) 325 mg | every 4 hours as | | | | | e | | tablet | needed for Pain. | | | | | | + + + +---------+------+------+-------+ | lactobacillus GG | Take 1 capsule by | | 0 | | | Activ | | (CULTURELLE) capsule | mouth as needed. | | | | | e | + + + +---------+------+------+-------+ | losartan (COZAAR) | Take 50 mg by mouth | | 0 | | | Activ | | 50 mg tablet | Daily. | | | | | e | + + + +---------+------+------+-------+ | metFORMIN | Take 500 mg by mouth | | 0 | | | Activ | | (GLUCOPHAGE) 500 mg | nightly. | | | | | e | | tablet | | | | | | | + + + +---------+------+------+-------+ | cholecalciferol | Take 5,000 Units by | | 0 | | | Activ | | (VITAMIN D-3) 5000 | mouth Daily. | | | | | e | | units TABS | | | | | | | + + + +---------+------+------+-------+ | potassium chloride | Take 10 mEq by mouth | | 0 | | | Activ | | (KLOR-CON M20) 20 | 2 times daily. | | | | | e | | mEq ER tablet | | | | | | | + + + +---------+------+------+-------+ | diclofenac | 50 mg 2 times daily. | | 0 | 11/0 | | Activ | | (VOLTAREN) 50 mg EC | | | | 20 | | e | | tablet | | | | 18 | | | + + + +---------+------+------+-------+ | budesonide | Take 3 capsules by | 90 | 1 | 08/1 | | Activ | | (ENTOCORT EC) 3 mg | mouth every morning. | capsule | | 20 | | e | | 24 hr | Take 3 tablets by | | | 19 | | | | capsuleIndications: | mouth daily | | | | | | | Irritable bowel | | | | | | | | syndrome with both | | | | | | | | constipation and | | | | | | | | diarrhea | | | | | | | + + + +---------+------+------+-------+ Active Problems + + + | Problem | Noted Date | + + + | Premature atrial contraction | 03/19/2018 | + + + | Change in bowel habits | 04/22/2017 | + + + | GERD (gastroesophageal reflux disease) | 04/22/2017 | + + + | Diarrhea | 04/22/2017 | + + + | Class 3 obesity in adult | 04/22/2017 | + + + Encounters +--------+ + + + + | Date | Type | Specialty | Care Team | Description | +--------+ + + + + | 01/11/ | Telephone | Gastroenterology | Manny Puentes MD | Other (Refill) | | 2019 | | | | | +--------+ + + + + from Last 3 Months Immunizations + + + + | Name | Administration Dates | Next Due | + + + + | INFLUENZA, | 01/29/2018, 01/25/2017 | | | UNSPECIFIED | | | | FORMULATION | | | + + + + | PNEUMOCOCCAL | 06/09/2015 | | | CONJUGATE 13-VALENT | | | | (PCV13) | | | + + + + | PNEUMOCOCCAL | 06/26/2016 | | | POLYSACCHARIDE | | | | 23-VALENT (PPSV23) | | | + + + + | TDAP, (ADOL/ADULT) | 06/09/2015 | | + + + + Family History + + +--------+ + | Medical History | Relation | Name | Comments | + + +--------+ + | Heart attack | Father | | | + + +--------+ + | Heart disease | Father | | | + + +--------+ + | Rheum arthritis | Father | | | + + +--------+ + | Heart attack | Maternal | | | | | Grandfath | | | | | er | | | + + +--------+ + | Breast cancer | Maternal | | | | | Grandmoth | | | | | er | | | + + +--------+ + | Breast cancer | Mother | | | + + +--------+ + | Hypertension | Other | | | + + +--------+ + | No known problems | Sister | | | + + +--------+ + | No known problems | Sister | Half | | | | | sister | | + + +--------+ + + +--------+ + + | Relation | Name | Status | Comments | + +--------+ + + | Father | | | | | | | (Age | | | | | 42) | | + +--------+ + + | Maternal Grandfather | | | | + +--------+ + + | Maternal Grandmother | | | | + +--------+ + + | Mother | | | | | | | (Age | | | | | 72) | | + +--------+ + + | Other | | | | + +--------+ + + | Sister | | | | + +--------+ + + | Sister | Half | | | | | sister | | | + +--------+ + + Social History + + + [...] recent travel history available. | + + Last Filed Vital Signs + + + + + | Vital Sign | Reading | Time Taken | Comments | + + + + + | Blood Pressure | 130/80 | 04/06/2018 10:30 AM | | | | | PST | | + + + + + | Pulse | 91 | 04/06/2018 10:30 AM | | | | | PST | | + + + + + | Temperature | 36.6 C (97.9 F) | 04/23/2017 12:50 PM | | | | | PST | | + + + + + | Respiratory Rate | 16 | 04/06/2018 10:30 AM | | | | | PST | | + + + + + | Oxygen Saturation | 99% | 04/23/2017 1:15 PM | | | | | PST | | + + + + + | Inhaled Oxygen | - | - | | | Concentration | | | | + + + + + | Weight | 130.6 kg (287 lb | 04/06/2018 10:30 AM | | | | 14.7 oz) | PST | | + + + + + | Height | 172.7 cm (5' 8") | 04/06/2018 10:30 AM | | | | | PST | | + + + + + | Body Mass Index | 43.78 | 04/06/2018 10:30 AM | | | | | PST | | + + + + + Plan of Treatment + + + + + | Health Maintenance | Due Date | Last Done | Comments | + + + + + | Hepatitis C | | | | | Screening | 0 | | | + + + + + | Vaccine: Zoster (1 | | | | | of 2) | 0 | | | + + + + + | Breast Cancer | | | | | Screening | 5 | | | + + + + + | Adult Annual | | | | | Wellness Visit | 5 | | | + + + + + | Vaccine: Influenza | | 01/29/2018, 01/25/2017 | | | (#1) | 9 | | | + + + + + | Vaccine: | | 06/09/2015 | | | Dtap/Tdap/Td (2 - | 6 | | | | Td) | | | | + + + + + | Colorectal Cancer | | 04/23/2017, 05/26/2008 | | | Screening | 7 | | | | (Colonoscopy) | | | | + + + + + | Vaccine: | Completed | 06/26/2016, 06/09/2015 | | | Pneumococcal 65+ | | | | + + + + + Results Not on filefrom Last 3 Months Insurance + +--------+ +--------+ + +--------+ | Payer | Benefi | Subscriber | Effect | Phone | Address | Type | | | t Plan | ID | antelmo | | | | | | / | | Dates | | | | | | Group | | | | | | + +--------+ +--------+ + +--------+ | MEDICARE | MEDICA | [id number] | | [phone] | | Medica | | | RE | | 015-Pr | 5 | | re | | | PART A | | esent | | | | | | AND B | | | | | | + +--------+ +--------+ + +--------+ | MODA | MODA | [id number] | 05/26/19 | [phone] | [address] | Indemn | | | HEALTH | | 17-Pre | 9 | [phone] | ity | | | MDCR | | sent | | [place], | | | | [place] | | | | [place] [address] | | + +--------+ +--------+ + +--------+ + +--------+ +--------+ + + | Guarantor Name | Accoun | Relation to | Date | Phone | Billing Address | | | t Type | Patient | of | | | | | | | | | | + +--------+ +--------+ + + | Vanesa Prescott | Person | Self [birth year] | [address] | | | al/Fam | | 1950 | [phone] | [place] | | | tremaine | | | 4 (Home) | [address] | + +--------+ +--------+ + + Advance Directives + + + + + | Type | Date Recorded | Patient | Explanation | | | | Transportation Aid | | + + + + + | Power of | | | | | Voip Engineer | | | | + + + + + | Advance | 04/23/2017 | | | | Directive | 9:21 AM | | | + + + + +
--- OUTSIDE RECORDS SUMMARY | ~2019-04-10 | XMS | Clinical Summary ---
Demographics + + + | Address | [address] | | | [place] [address] | + + + | Home Phone | | + + + | Preferred Language | Unknown | + + + | Marital Status | | + + + | Worship Affiliation | 1061 | + + + | Race | Unknown | + + + | Ethnic Group | Unknown | + + + Author + + + | Author | [facility] | | | and [place] | + + + | Organization | [facility] | | | [...] Team Providers + +------+ + | Care Bed Rubber Name | Role | Phone | + [...] + +--------+ | MEDICARE | MEDICA | [id number] | | [phone] | | Medica | | | RE | | 015-Pr | 5 | | re | | | PART A | | esent | | | | | | AND B | | | | | | + +--------+ +--------+ + +--------+ | MODA | MODA | [id number] | 05/26/[birth year] | [phone] | [address] | Indemn | | | HEALTH | | 17-Pre | 9 | [phone] | ity | | | MDCR | | sent | | [place], | | | | [place] | | | | [place] [address] | | + +--------+ +--------+ + +--------+ [...] | | al/Fam | | 1950 | [phone] | [place] | | | tremaine | | | 4 (Home) | [address] | + +--------+ +--------+ + + Advance Directives + + + + + | Type | Date Recorded | Patient | Explanation | | | | Interventional Technologist | | + + + + + | Power of | | | | | Flight Operations Specialist | | | | + + + + + | Advance | 04/23/2017 | | | | Directive | 9:21 AM | | | + + + + +
--- OUTSIDE RECORDS SUMMARY | ~2019-04-10 | XMS | Clinical Summary ---
Demographics + + + | Address | [address] | | | [place] [address] | + + + | Home Phone | | + + + | Preferred Language | Unknown | + + + | Marital Status | | + + + | Advent Affiliation | Unknown | + + + | Race | Unknown | + + + | Ethnic Group | Unknown | + + + Author + + + | Author | [facility] (Historical as of | | | 01-09-19) | + + + | Organization | [facility] (Historical as of | | | 01-09-19) | + + + | Address | Unknown | + + + | Phone | Unavailable | + + + Support + + +---------+ + | Name | Relationship | Address | Phone | + + +---------+ + | Tamir Prescott | ECON | Unknown | | + + +---------+ + Care Team Providers + +------+ + | Care Information Systems Technician Name | Role | Phone | + +------+ + | Renaldo Nolasco MD | PP | | + +------+ + Allergies + + + + + + | Active Allergy | Reactions | Severity | Noted | Comments | | | | | Date | | + + + + + + | Codeine | Diarrhea | Medium | 03/18/20 | With Nausea and | | | | | 18 | vomiting | + + + + + + | Meclofenamate | Hives | High | 10/24/20 | | | | | | 18 | | + + + + + + | Sulfa Antibiotics | Rash | Medium | 03/18/20 | | | | | | 18 | | + + + + + + | Verapamil | Vertigo | Low | 03/18/20 | | | | | | 18 | | + + + + + + Current Medications + + +-------+---------+------+------+-------+ | Prescription | Sig. | Disp. | Refills | Star | End | Statu | | | | | | t | Date | s | | | | | | Date | | | + + +-------+---------+------+------+-------+ | loperamide | Take 2 mg by mouth 4 | | | | | Activ | | (IMODIUM) 2 MG | (four) times daily | | | | | e | | capsule | as needed for | | | | | | | | Diarrhea. | | | | | | + + +-------+---------+------+------+-------+ | acetaminophen | Take 325 mg by mouth | | | | | Activ | | (TYLENOL) 325 MG | every 6 (six) hours | | | | | e | | tablet | as needed for Pain. | | | | | | + + +-------+---------+------+------+-------+ | mesalamine (ASACOL | Take by mouth 3 | | | | | Activ | | HD) 800 MG EC | (three) times daily. | | | | | e | | tablet | | | | | | | + + +-------+---------+------+------+-------+ | | Take by mouth. | | | | | Activ | | Lactobacillus-Inulin | | | | | | e | | (CULTURELLE | | | | | | | | DIGESTIVE HEALTH PO) | | | | | | | + + +-------+---------+------+------+-------+ | Cholecalciferol | Take 50,000 Units by | | | | | Activ | | (VITAMIN D3) 3000 | mouth. | | | | | e | | units TABS | | | | | | | + + +-------+---------+------+------+-------+ | simvastatin | Take 20 mg by mouth | | | | | Activ | | (ZOCOR) 20 MG tablet | nightly. | | | | | e | + + +-------+---------+------+------+-------+ | spironolactone | Take 50 mg by mouth | | | | | Activ | | (ALDACTONE) 50 MG | daily. | | | | | e | | tablet | | | | | | | + + +-------+---------+------+------+-------+ | furosemide (LASIX) | Take 40 mg by mouth | | | | | Activ | | 40 MG tablet | daily. | | | | | e | + + +-------+---------+------+------+-------+ | HYDROXYCHLOROQUINE | Take 200 mg by mouth | | | | | Activ | | SULFATE PO | daily. | | | | | e | + + +-------+---------+------+------+-------+ | omeprazole | Take 20 mg by mouth | | | | | Activ | | (PRILOSEC) 20 MG | every morning before | | | | | e | | capsule | breakfast. | | | | | | + + +-------+---------+------+------+-------+ | potassium chloride | Take 20 mEq by mouth | | | | | Activ | | (K-DUR) 10 MEQ | 2 (two) times daily | | | | | e | | tablet | with meals. | | | | | | + + +-------+---------+------+------+-------+ | aspirin 81 MG | Take 81 mg by mouth | | | | | Activ | | tablet | daily. | | | | | e | + + +-------+---------+------+------+-------+ | losartan (COZAAR) | Take 50 mg by mouth | | | | | Activ | | 50 MG tablet | daily. | | | | | e | + + +-------+---------+------+------+-------+ | metFORMIN | Take 500 mg by mouth | | | | | Activ | | (GLUCOPHAGE-XR) 500 | daily with dinner. | | | | | e | | MG 24 hr tablet | | | | | | | + + +-------+---------+------+------+-------+ | nitroGLYCERIN | Place 0.4 mg under | | | | | Activ | | (NITROSTAT) 0.4 MG | the tongue every 5 | | | | | e | | SL tablet | (five) minutes as | | | | | | | | needed for Chest | | | | | | | | pain. | | | | | | + + +-------+---------+------+------+-------+ | desipramine | Take 25 mg by mouth | | | | | Activ | | (NORPRAMIN) 25 MG | daily. | | | | | e | | tablet | | | | | | | + + +-------+---------+------+------+-------+ | guaiFENesin | Take 600 mg by mouth | | | | | Activ | | (MUCINEX) 600 MG 12 | 2 (two) times | | | | | e | | hr tablet | daily. | | | | | | + + +-------+---------+------+------+-------+ | diclofenac | Take 75 mg by mouth | | | | | Activ | | (VOLTAREN) 75 MG EC | 2 (two) times daily. | | | | | e | | tablet | | | | | | | + + +-------+---------+------+------+-------+ | levothyroxine | Take 150 mcg by | | | | | Activ | | (SYNTHROID) 150 MCG | mouth every morning | | | | | e | | tablet | before breakfast. | | | | | | + + +-------+---------+------+------+-------+ | Diclofenac Sodium | Place onto the | | | | | Activ | | 1 % CREA | skin. | | | | | e | + + +-------+---------+------+------+-------+ | | Take 1 tablet by | | | | | Activ | | HYDROcodone-acetamin | mouth every 6 (six) | | | | | e | | ophen (NORCO) 5-325 | hours as needed for | | | | | | | MG per tablet | Pain. | | | | | | + + +-------+---------+------+------+-------+ Active Problems + + + | Problem | Noted Date | + + + | Premature atrial contraction | 03/19/2018 | + + + | Class 3 obesity in adult | 04/22/2017 | + + + | GERD (gastroesophageal reflux disease) | 04/22/2017 | + + + Family History + + +------+ + | Medical History | Relation | Name | Comments | + + +------+ + | Heart attack | Father | | | + + +------+ + | Cancer | Mother | | | + + +------+ + + +------+ + + | Relation | Name | Status | Comments | + +------+ + + | Father | | | | + +------+ + + | Mother | | | | + +------+ + + Social History + +-------+ +--------+------+ | Tobacco Use | Types | Packs/Day | Years | Date | | | | | Used | | + +-------+ +--------+------+ | Former Smoker | | | | | + [...] + + + | Blood Pressure | 126/72 | 03/19/2018 12:48 PM PDT | + + + + | Pulse | 99 | 03/19/2018 12:48 PM PDT | + + + + | Temperature | - | - | + + + + | Respiratory Rate | - | - | + + + + | Oxygen Saturation | 98% | 03/19/2018 12:48 PM PDT | + + + + | Inhaled Oxygen | - | - | | Concentration | | | + + + + | Weight | 131.1 kg (289 lb) | 03/19/2018 12:48 PM PDT | + + + + | Height | 172.7 cm (5' 8") | 03/19/2018 12:48 PM PDT | + + + + | Body Mass Index | 43.94 | 03/19/2018 12:48 PM PDT | + + + + Plan of [...] | Screening | 0 | | | | (Mammogram) | | | | + + + + + | Colon Cancer | | | | | Screening | 0 | | | | (Colonoscopy) | | | | + + + + + | Vaccine: Zoster (1 | | | | | of 2) | 0 | | | + + + + + | DEXA SCAN SCREENING | | | | | | 5 | | | + + + + + | Vaccine: | | | | | Pneumococcal 65+ | 5 | | | | Low/Medium Risk (1 | | | | | of 2 - PCV13) | | | | + + + + + | Vaccine: Influenza | | | | | (#1) | 9 | | | + + + + + Results Not on filefrom Last 3 Months Insurance + +--------+ +------+-------+ + | Payer | Benefi | Subscriber | Type | Phone | Address | | | t Plan | ID | | | | | | / | | | | | | | Group | | | | | + +--------+ +------+-------+ + | MEDICARE | MEDICA | [id number] | | | [address] | | | RE | | | | [place] [address] | | | IP-OP | | | | | + +--------+ +------+-------+ + | [employer]AN | ODS | [id number] | | | | | | HEALTH | | | | | | | PLAN | | | | | + +--------+ +------+-------+ + + +--------+ +--------+ + + | Guarantor Name | Accoun | Relation to | Date | Phone | Billing Address | | | t Type | Patient | of | | | | | | | | | | + +--------+ +--------+ + + | JESUS PRESCOTT | Person | Self | [birth year] | 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
--- OUTSIDE RECORDS SUMMARY | ~2019-04-10 | XMS | Encounter Summary ---
Demographics + + + | Address | [address] | | | [place] [address] | + + + | Home Phone | | + + + | Preferred Language | Unknown | + + + | Marital Status | | + + + | Mormonism Affiliation | 1061 | + + + | Race | Unknown | + + + | Ethnic Group | Unknown | + + + Author + + + | Author | [facility] | | | and [place] | + + + | Organization | [facility] | | | [...] Team Providers + +------+ + | Care Coroner Technician Name | Role | Phone | + +------+ + | Jony Shi MD | PCP | | + +------+ + Encounter Details +--------+ + + + + | Date | Type | Department | Care Team | Description | +--------+ + + + + | 10/07/ | [facility] | [facility] | Jony Shi | Raynaud's syndrome | | 2013 | Encounter | MED CTR ULTRASOUND | [address] | (Primary Dx) | | | | [address] [place] | [address] | | | | | [place] | [place] | | | | | [address] | [address] | | | | | [phone] | [phone] | | | | | | | | | | | | Amadeo Bird, | | | | | | Technologist | | +--------+ + + + + Social History + +-------+ +--------+------+ | Tobacco Use | Types | Packs/Day | Years | Date | | | | | Used | | + +-------+ +--------+------+ | Never Assessed | | | | | + +-------+ +--------+------+ + + + | Sex Assigned at [...] Not on filedocumented as of this encounter Procedures + +--------+ + + + | Procedure Name | Priori | Date/Time | Associated Diagnosis | Comments | | | ty | | | | + +--------+ + + + | VAS SEGMENTAL | Routin | 10/07/2013 | Raynaud's syndrome | Results for this | | PRESSURES LEGS | e | 11:30 AM | | procedure are in the | | | | PDT | | results section. | + +--------+ + + + documented in this encounter Results VAS Segmental Pressures Legs (10/07/2013 11:30 AM PDT) + + | Specimen | + + | | + + + + + | Narrative | Performed At | + + + | VAS SEGMENTAL PRESSURES LEGS 10/07/2013 11:30 AM HISTORY: | MISCELANIOUS | | Raynaud's syndrome. COMPARISON: None. PROTOCOL: Blood pressure | LAB | | measurements of the upper extremities and lower extremities were | | | obtained with Doppler probe and sphygmomanometer. FINDINGS: | | | Right: Brachial: 158, Index High thigh: Greater than 254, not | | | calculated Calf: 181, 1.15 Ankle, posterior tibial: 134, 0.85, some | | | arterial disease Ankle, dorsalis pedis: 156, 0.99, acceptable | | | Pulses: Femoral: Absent Popliteal: Absent Dorsalis pedis: Absent | | | Posterior tibial: Absent Left: Brachial: 135, Index High thigh: | | | 192, 1.22 Calf: 176, 1.11 Ankle, posterior tibial: 151, 0.96, | | | acceptable Ankle, dorsalis pedis: 155, 0.98, acceptable Pulses: | | | Femoral: Absent Popliteal: Absent Dorsalis pedis: Absent Posterior | | | tibial: Absent Segmental blood pressures: No significant | | | discrepancy between levels is seen in the segmental blood pressures | | | of either lower extremity. On pulse plethysmography, there is | | | decreased amplitude of the waveforms involving the right ankle. | | | IMPRESSION - RIGHT POSTERIOR TIBIAL ANKLE BRACHIAL INDEX OF 0.85, | | | CONSISTENT WITH SOME ARTERIAL DISEASE. [facility] Greater | | | than 1.4: Calcification/vessel hardening, refer to vascular | | | specialist 1.0 - 1.4: Normal 0.9 - 1.0: Acceptable 0.8 - 0.9: Some | | | arterial disease, treat risk factors 0.5 - 0.8: Moderate arterial | | | disease, refer to vascular specialist Less than 0.5: Severe arterial | | | disease, refer to vascular specialist Dictated and Signed by: | | | Dylan King MD Electronically signed: 10/07/2013 12:54 PM | | + + + + + | Procedure Note | + + | Moreno, Rad Results In - 10/07/2013 12:58 PM PDT VAS SEGMENTAL PRESSURES LEGS 10/07/2013 | | 11:30 AM HISTORY: Raynaud's syndrome.COMPARISON: None.PROTOCOL: Blood pressure | | measurements of the upper extremities and lowerextremities were obtained with Doppler | | probe and sphygmomanometer.FINDINGS:Right:Brachial: 158, IndexHigh thigh: Greater than | | 254, not calculatedCalf: 181, 1.15Ankle, posterior tibial: 134, 0.85, some arterial | | diseaseAnkle, dorsalis pedis: 156, 0.99, acceptablePulses:Femoral: AbsentPopliteal: | | AbsentDorsalis pedis: AbsentPosterior tibial: AbsentLeft:Brachial: 135, IndexHigh thigh: | | 192, 1.22Calf: 176, 1.11Ankle, posterior tibial: 151, 0.96, acceptableAnkle, dorsalis | | pedis: 155, 0.98, acceptablePulses:Femoral: AbsentPopliteal: AbsentDorsalis pedis: | | AbsentPosterior tibial: AbsentSegmental blood pressures: No significant discrepancy | | between levels is seen inthe segmental blood pressures of either lower extremity.On | | pulse plethysmography, there is decreased amplitude of the waveformsinvolving the right | | ankle.IMPRESSION -RIGHT POSTERIOR TIBIAL ANKLE BRACHIAL INDEX OF 0.85, CONSISTENT WITH | | SOMEARTERIAL DISEASE.[facility]Greater than 1.4: Calcification/vessel hardening, | | refer to vascular specialist1.0 - 1.4: Normal0.9 - 1.0: Acceptable0.8 - 0.9: Some | | arterial disease, treat risk factors0.5 - 0.8: Moderate arterial disease, refer to | | vascular specialistLess than 0.5: Severe arterial disease, refer to vascular | | specialistDictated and Signed by: Dylan King MD Electronically signed: 10/07/2013 | | 12:54 PM | |Femoral: Absent | |Popliteal: Absent | |Dorsalis pedis: Absent | |Posterior tibial: Absent | | | |Left: | |Brachial: 135, Index | |High thigh: 192, 1.22 | |Calf: 176, 1.11 | |Ankle, posterior tibial: 151, 0.96, acceptable | |Ankle, dorsalis pedis: 155, 0.98, acceptable | | | |Pulses: | |Femoral: Absent | |Popliteal: Absent | |Dorsalis pedis: Absent | |Posterior tibial: Absent | | | |Segmental blood pressures: No significant discrepancy between levels is seen in | |the segmental blood pressures of either lower extremity. | |On pulse plethysmography, there is decreased amplitude of the waveforms | |involving the right ankle. | | | |IMPRESSION - | |RIGHT POSTERIOR TIBIAL ANKLE BRACHIAL INDEX OF 0.85, CONSISTENT WITH SOME | |ARTERIAL DISEASE. | | | |[facility] | |Greater than 1.4: Calcification/vessel hardening, refer to vascular specialist | |1.0 - 1.4: Normal | |0.9 - 1.0: Acceptable | |0.8 - 0.9: Some arterial disease, treat risk factors | |0.5 - 0.8: Moderate arterial disease, refer to vascular specialist | |Less than 0.5: Severe arterial disease, refer to vascular specialist | | | |Dictated and Signed by: Dylan King MD | | Electronically signed: 10/07/2013 12:54 PM | + + + +---------+ + + | Performing | Address | City/State/Zipcode | Phone Number | | Organization | | | | + +---------+ + + | [facility] | | | [phone] | + +---------+ + + | MISCELANIOUS LAB | | | [phone] | + +---------+ + + documented in this encounter Visit Diagnoses + + | Diagnosis | + + | Raynaud's syndrome - Primary | + + documented in this encounter"
--- OUTSIDE RECORDS SUMMARY | ~2019-04-10 | XMS | Encounter Summary ---
Demographics + + + | Address | [address] | | | [place] [address] | + + + | Home Phone | | + + + | Preferred Language | Unknown | + + + | Marital Status | | + + + | Moravian Affiliation | 1061 | + + + | Race | Unknown | + + + | Ethnic Group | Unknown | + + + Author + + + | Author | [facility] | | | and [place] | + + + | Organization | [facility] | | [...] Team Providers + +------+ + | Care Stave Cutter Name | Role | Phone | + +------+ + | Jony Shi MD | PCP | | + +------+ + Encounter Details +--------+ + + + + | Date | Type | Department | Care Team | Description | +--------+ + + + + | 03/24/ | Episode | [facility] | Marisel Cooper | | | 2017 | Changes | GASTROENTEROLOGY | M, RN | | | | | [address] | | | | | | [address] [place] | | | | | | [address] | | | | | | [phone] | | | +--------+ + + + [...]
--- OUTSIDE RECORDS SUMMARY | ~2019-04-10 | XMS | Encounter Summary ---
Demographics + + + | Address | [address] | | | [place] [address] | + + + | Home Phone | | + + + | Preferred Language | Unknown | + + + | Marital Status | | + + + | Uatsdin Affiliation | 1061 | + + + | Race | Unknown | + + + | Ethnic Group | Unknown | + + + Author + + + | Author | [facility] | | | and [place] | + + + | Organization | [facility] | | | and [...] Team Providers + +------+ + | Care Cloth Covered Helmet Puller Name | Role | Phone | + [...] 2019 | | GASTROENTEROLOGY | [address], [place] | Management | | | | [address] [place] | [address] [place], [place] | (Budesonide) | | | | [address] [place], [place] | [address] | | | | | [address] | | | | | | [phone] | | | +--------+ + + + [...]
--- OUTSIDE RECORDS SUMMARY | ~2019-04-10 | XMS | Encounter Summary ---
Demographics + + + | Address | [address] | | | [place] [address] | + + + | Home Phone | | + + + | Preferred Language | Unknown | + + + | Marital Status | | + + + | Advent Affiliation | 1061 | + + + | Race | Unknown | + + + | Ethnic Group | Unknown | + + + Author + + + | Author | [facility] | | | and [place] | + + + | Organization | [facility] | | | [...] Team Providers + +------+ + | Care Crime Prevention Police Officer Name | Role | Phone | + +------+ + | Jony Shi MD | PCP | | + +------+ + Encounter Details +--------+ + + + + | Date | Type | Department | Care Team | Description | +--------+ + + + + | 04/23/ | Anesthesia | [facility] | Romario Herzog MD | | | 2017 | Event | [facility] OP | [address] | | | | | [address] | [place], [place] | | | | | [place], [place] | [address] | | | | | [address] | [phone] | | | | | [phone] | | | +--------+ + + + + Anesthesia Record + + + + + | Procedure Name | Responsible | Anesthesia Start | Anesthesia Stop Time | | | Anesthesiologist | Time | | + + + + + | ANN RodriguezN/Elyse Jiménez) | Romario Herzog MD | 04/23/17 1205 | 04/23/17 1250 | + + + + + +----+---+ + + | Da | T | Event | Comment | | te | i | | | | | m | | | | | e | | | +----+---+ + + | 11 | 1 | | | | /2 | 1 | | | | 9/ | 5 | | | | 20 | 8 | | | | 17 | | | | +----+---+ + + | | 1 | An Checkout | Pre-use anesthesia machine/equipment checkout. | | | 1 | | | | | 5 | | | | | 9 | | | +----+---+ + + | | 1 | An Start | Reassessment prior to anesthesia induction/procedure. | | | 2 | | | | | 0 | | | | | 5 | | | +----+---+ + + | | 1 | An Start | | | | 2 | Data | | | | 0 | | | | | 5 | | | +----+---+ + + | | 1 | Pre-Procedu | | | | 2 | ral Timeout | | | | 0 | Completed | | | | 8 | | | +----+---+ + + | | 1 | First | | | | 2 | Inc/Proc St | | | | 1 | | | | | 1 | | | +----+---+ + + | | 1 | An | | | | 2 | Induction | | | | 1 | | | | | 2 | | | +----+---+ + + | | 1 | Breathing | | | | 2 | Spontaneous | | | | 1 | ly | | | | 3 | | | +----+---+ + + | | 1 | an stop | | | | 2 | data | | | | 4 | | | | | 5 | | | +----+---+ + + | | 1 | An Stop | Patient handed off to recovery nurse. | | | 5 | | | | | 0 | | | +----+---+ + + +------+ | Meds | +------+ + + + | Name | Total | + + + | propofol (DIPRIVAN) injection | 120 mg | | (bolus) (20 mL) | | + + + | propofol (DIPRIVAN) injection | 602.88 mg | | (bolus) (20 mL) | | + + + | lidocaine 2% | 50 mg | + + + | lactated ringers (LR) infusion | 175 mL | + + + + + | No agents on file. | + + + + | No blood administrations on file. | + + +--------+ + + + | Type | Details | Placement | Removal | +--------+ + + + | [READ | 04/23/17; 1159; 08/17/18 | 04/23/17 1159 by | 08/17/18 1643 by | | ONLY] | (Removed/Completed by utility); | Romario Herzog MD | User Epic | | | 1643 (Removed/Completed by | | | | Periph | utility) | | | | eral | | | | | IV - | | | | | Single | | | | | Lumen | | | | | | | | | +--------+ + + + | Periph | 04/23/17; 1220; yes; Right; | 04/23/17 1220 by | 04/23/17 1336 by | | eral | Antecubital; [id number] | Dalia Saunders RN | Dalia Saunders RN | | IV | catheter system; 20 gauge; no | | | | | longer indicated, removed per | | | | | policy/procedure; 04/23/17; 1336 | | | +--------+ + + + documented in this encounter Social History + + + +--------+ + [...] Diagnoses Not on filedocumented in this encounter Administered Medications + +---------+ +------+------+------+ | Medication Order | MAR | Action | Dose | Rate | Site | | | Action | Date | | | | + +---------+ +------+------+------+ | lactated ringers (LR) infusion | New Bag | 04/23/20 | | | | | at 100 mL/hr, Intravenous, | | 17 11:57 | | | | | CONTINUOUS, Starting 04/23/17 | | AM PST | | | | | at 1215, Pre-op | | | | | | + +---------+ +------+------+------+ +---+---+ | | | +---+---+ + +-------+ +-------+---+---+ | lidocaine (PF) 2% injection | Given | 04/23/20 | 50 mg | | | | Intravenous, PRN, Starting Fri | | 17 12:11 | | | | | 04/23/17 at 1211, Anesthesia | | PM PST | | | | | Intra-op | | | | | | + +-------+ +-------+---+---+ +---+---+ | | | +---+---+ + +-------+ +--------+---+---+ | propofol (DIPRIVAN) injection | Given | 04/23/20 | 110 mg | | | | Intravenous, PRN, Starting Wed | | 17 12:12 | | | | | 04/23/17 at 1211, Anesthesia | | PM PST | | | | | Intra-op | | | | | | + +-------+ +--------+---+---+ +-------+ +-------+---+---+ | Given | 04/23/20 | 10 mg | | | | | 17 12:11 | | | | | | PM PST | | | | +-------+ +-------+---+---+ +---+---+ | | | +---+---+ + + + + +-------+---+ | propofol (DIPRIVAN) injection | Rate/Dos | 04/23/20 | 120 | 92.2 | | | Intravenous, CONTINUOUS PRN, | e Change | 17 12:36 | mcg/kg/m | mL/hr | | | Starting 04/23/17 at 1212, | | PM PST | in | | | | Anesthesia Intra-op | | | | | | + + + + +-------+---+ + + + +--------+---+ | Rate/Dose Change | 04/23/20 | 140 | 107.5 | | | | 17 12:30 | mcg/kg/m | mL/hr | | | | PM PST | in | | | + + + +--------+---+ | Rate/Dose Change | 04/23/20 | 170 | 130.6 | | | | 17 12:23 | mcg/kg/m | mL/hr | | | | PM PST | in | | | + + + +--------+---+ +---+---+ | | | +---+---+ documented in this encounter"
--- OUTSIDE RECORDS SUMMARY | ~2019-04-10 | XMS | Clinical Summary ---
Demographics + + + | Address | [address] | | | [place] [address] | + + + | Home Phone | | + + + | Preferred Language | Unknown | + + + | Marital Status | | + + + | Religion Affiliation | Unknown | + + + | Race | Unknown | + + + | Ethnic Group | Unknown | + + + Author + + + | Author | [facility] (Historical as of | | | 01-09-19) | + + + | Organization | [facility] (Historical as of | | | 01-09-19) [...] Team Providers + +------+ + | Care Handbag Frames Inspector Name | Role | Phone | + [...] +------+-------+ + | MEDICARE | MEDICA | [id number] | | | [address] | | | RE | | | | [place] [address] | | | IP-OP | | | | | + +--------+ +------+-------+ + | [employer]AN | ODS | [id number] | | | | | | HEALTH [...] | | al/Fam | | 1950 | [phone] | [place] | | | tremaine | | | [address]: | [address] | | | | | | | | | | | | | [phone] | | | | | | | [phone] | | + +--------+ +--------+ + +
--- OUTSIDE RECORDS SUMMARY | ~2019-04-10 | XMS | Encounter Summary ---
Demographics + + + | Address | [address] | | | [place] [address] | + + + | Home Phone | | + + + | Preferred Language | Unknown | + + + | Marital Status | | + + + | Evangelical Affiliation | 1061 | + + + | Race | Unknown | + + + | Ethnic Group | Unknown | + + + Author + + + | Author | [facility] | | | and [place] | + + + | Organization | [facility] | | [...] Team Providers + +------+ + | Care Prison Guard Name | Role | Phone | + [...] | +--------+ + + + + | 07/31/ | Telephone | [facility] [place] | Manny Puentes MD | Medication | | 2019 | | GASTROENTEROLOGY | [address], [place] | Management | | | | [address] [place] | [address] [place], [place] | (Budesonide) | | | | [address] [place], [place] | [address] | | | | | [address] | | | | | | [phone] | | | +--------+ + + + [...]
--- OUTSIDE RECORDS SUMMARY | ~2019-04-10 | XMS | Encounter Summary ---
Demographics + + + | Address | [address] | | | [place] [address] | + + + | Home Phone | | + + + | Preferred Language | Unknown | + + + | Marital Status | | + + + | Taoism Affiliation | 1061 | + + + | Race | Unknown | + + + | Ethnic Group | Unknown | + + + Author + + + | Author | [facility] | | | and [place] | + + + | Organization | [facility] | | | and [...] Team Providers + +------+ + | Care Mop Man Name | Role | Phone | + [...] 2019 | | GASTROENTEROLOGY | [address], [place] | Management | | | | [address] [place] | [address] [place], [place] | ([place]) | | | | [address] [place], [place] | [address] | | | | | [address] | | | | | | [phone] | | | +--------+ + + + [...]
--- OUTSIDE RECORDS SUMMARY | ~2019-04-10 | XMS | Encounter Summary ---
Demographics + + + | Address | [address] | | | [place] [address] | + + + | Home Phone | | + + + | Preferred Language | Unknown | + + + | Marital Status | | + + + | Judaism Affiliation | 1061 | + + + | Race | Unknown | + + + | Ethnic Group | Unknown | + + + Author + + + | Author | [facility] | | | and [place] | + + + | Organization | [facility] | | | [...] Team Providers + +------+ + | Care Sand Operator Name | Role | Phone | + +------+ + | Renaldo Nolasco MD | PCP | | + +------+ + Encounter Details +--------+ + + + + | Date | Type | Department | Care Team | Description | +--------+ + + + + | 03/16/ | Abstract | [facility] | Provider, | | | 2017 | | GASTROENTEROLOGY | MD [address] | | | | | [address] | [place] | | | | | [address] | [place] [address] | | | | | [address] | | | | | | [phone] | | | +--------+ + + + [...] | + +--------+ + + + | EXTERNAL LAB: BUN | Routin | 11/20/2017 | | Results for this | | | e | | | procedure are in the | | | | | | results section. | + +--------+ + + + | EXTERNAL LAB: | Routin | 11/20/2017 | | Results for this | | GLUCOSE | e | | | procedure are in the | | | | | | results section. | + +--------+ + + + | EXTERNAL LAB: ALT | Routin | 11/20/2017 | | Results for this | | | e | | | procedure are in the | | | | | | results section. | + +--------+ + + + | EXTERNAL LAB: AST | Routin | 11/20/2017 | | Results for this | | | e | | | procedure are in the | | | | | | results section. | + +--------+ + + + | EXTERNAL LAB: | Routin | 11/20/2017 | | Results for this | | ALKALINE PHOSPHATASE | e | | | procedure are in the | | | | | | results section. | + +--------+ + + + | EXTERNAL LAB: | Routin | 11/20/2017 | | Results for this | | BILIRUBIN, TOTAL | e | | | procedure are in the | | | | | | results section. | + +--------+ + + + | EXTERNAL LAB: | Routin | 11/20/2017 | | Results for this | | PROTEIN, TOTAL | e | | | procedure are in the | | | | | | results section. | + +--------+ + + + | EXTERNAL LAB: | Routin | 11/20/2017 | | Results for this | | PHOSPHORUS | e | | | procedure are in the | | | | | | results section. | + +--------+ + + + | EXTERNAL LAB: | Routin | 11/20/2017 | | Results for this | | MAGNESIUM | e | | | procedure are in the | | | | | | results section. | + +--------+ + + + | EXTERNAL LAB: | Routin | 11/20/2017 | | Results for this | | CALCIUM | e | | | procedure are in the | | | | | | results section. | + +--------+ + + + | EXTERNAL LAB: CARBON | Routin | 11/20/2017 | | Results for this | | DIOXIDE | e | | | procedure are in the | | | | | | results section. | + +--------+ + + + | EXTERNAL LAB: | Routin | 11/20/2017 | | Results for this | | CHLORIDE | e | | | procedure are in the | | | | | | results section. | + +--------+ + + + | EXTERNAL LAB: | Routin | 11/20/2017 | | Results for this | | POTASSIUM | e | | | procedure are in the | | | | | | results section. | + +--------+ + + + | EXTERNAL LAB: SODIUM | Routin | 11/20/2017 | | Results for this | | | e | | | procedure are in the | | | | | | results section. | + +--------+ + + + | EXTERNAL LAB: TIFFANIE | Routin | 11/20/2017 | | Results for this | | | e | | | procedure are in the | | | | | | results section. | + +--------+ + + + | EXTERNAL LAB: CONNOR | Routin | 11/20/2017 | | Results for this | | | e | | | procedure are in the | | | | | | results section. | + +--------+ + + + | EXTERNAL LAB: MAXI | Routin | 11/20/2017 | | Results for this | | | e | | | procedure are in the | | | | | | results section. | + +--------+ + + + | EXTERNAL LAB: | Routin | 11/20/2017 | | Results for this | | CREATININE | e | | | procedure are in the | | | | | | results section. | + +--------+ + + + | CBC WITH | Routin | 11/20/2017 | | Results for this | | DIFFERENTIAL | e | | | procedure are in the | | | | | | results section. | + +--------+ + + + | HEMOGLOBIN A1C | Routin | 11/20/2017 | | Results for this | | | e | | | procedure are in the | | | | | | results section. | + +--------+ + + + documented in this encounter Results CBC with Differential (11/20/2017) + +-------+ + + + | Component | Value | Ref Range | Performed | Pathologist | | | | | At | Signature | + +-------+ + + + | MCH | 30.0 | 26.0 - 33.0 pg | | | + +-------+ + + + | MCHC | 33.0 | 30.0 - 36.0 % | | | + +-------+ + + + | % Basophils | 0.1 | 0.0 - 2.0 % | | | + +-------+ + + + + + | Specimen | + + | Blood | + + Hemoglobin A1C (11/20/2017) + + + + + + | Component | Value | Ref Range | Performed | Pathologist | | | | | At | Signature | + + + + + + | Hemoglobin | 6.5Comment: Estimated | % | EXTERNAL | | | A1c | Average Glucose 140 | | LAB | | + + + + + + + + | Specimen | + + | Blood | + + + +---------+ + + | Performing | Address | City/State/Zipcode | Phone Number | | Organization | | | | + +---------+ + + | EXTERNAL LAB | | | | + +---------+ + + External Lab: BUN (11/20/2017) + +-------+ + + + | Component | Value | Ref Range | Performed | Pathologist | | | | | At | Signature | + +-------+ + + + | BUN, | 22 | 6 - 23 | EXTERNAL | | | External | | | LAB | | + +-------+ + + + + +---------+ + + | Performing | Address | City/State/Zipcode | Phone Number | | Organization | | | | + +---------+ + + | EXTERNAL LAB | | | | + +---------+ + + External Lab: Glucose (11/20/2017) + +---------+ + + + | Component | Value | Ref Range | Performed | Pathologist | | | | | At | Signature | + +---------+ + + + | Glucose, | 113 (A) | 70 - 100 | EXTERNAL | | | External | | | LAB | | + +---------+ + + + + +---------+ + + | Performing | Address | City/State/Zipcode | Phone Number | | Organization | | | | + +---------+ + + | EXTERNAL LAB | | | | + +---------+ + + External Lab: ALT (11/20/2017) + +-------+ + + + | Component | Value | Ref Range | Performed | Pathologist | | | | | At | Signature | + +-------+ + + + | ALT, | 20 | 7 - 52 | EXTERNAL | | | External | | | LAB | | + +-------+ + + + + +---------+ + + | Performing | Address | City/State/Zipcode | Phone Number | | Organization | | | | + +---------+ + + | EXTERNAL LAB | | | | + +---------+ + + External Lab: AST (11/20/2017) + +-------+ + + + | Component | Value | Ref Range | Performed | Pathologist | | | | | At | Signature | + +-------+ + + + | AST, | 21 | 13 - 39 | EXTERNAL | | | External | | | LAB | | + +-------+ + + + + +---------+ + + | Performing | Address | City/State/Zipcode | Phone Number | | Organization | | | | + +---------+ + + | EXTERNAL LAB | | | | + +---------+ + + External Lab: Alkaline Phosphatase (11/20/2017) + +-------+ + + + | Component | Value | Ref Range | Performed | Pathologist | | | | | At | Signature | + +-------+ + + + | ALP, | 66 | 31 - 130 | EXTERNAL | | | External | | | LAB | | + +-------+ + + + + +---------+ + + | Performing | Address | City/State/Zipcode | Phone Number | | Organization | | | | + +---------+ + + | EXTERNAL LAB | | | | + +---------+ + + External Lab: Bilirubin, Total (11/20/2017) + +-------+ + + + | Component | Value | Ref Range | Performed | Pathologist | | | | | At | Signature | + +-------+ + + + | Bilirubin, | 0.6 | 0 - 1.2 | EXTERNAL | | | Total, | | | LAB | | | External | | | | | + +-------+ + + + + +---------+ + + | Performing | Address | City/State/Zipcode | Phone Number | | Organization | | | | + +---------+ + + | EXTERNAL LAB | | | | + +---------+ + + External Lab: Protein, Total (11/20/2017) + +-------+ + + + | Component | Value | Ref Range | Performed | Pathologist | | | | | At | Signature | + +-------+ + + + | Protein, | 7.5 | 6 - 8.3 | EXTERNAL | | | Total, | | | LAB | | | External | | | | | + +-------+ + + + + +---------+ + + | Performing | Address | City/State/Zipcode | Phone Number | | Organization | | | | + +---------+ + + | EXTERNAL LAB | | | | + +---------+ + + External Lab: Phosphorus (11/20/2017) + +---------+ + + + | Component | Value | Ref Range | Performed | Pathologist | | | | | At | Signature | + +---------+ + + + | Phosphorus, | 2.1 (A) | 2.5 - 5 | EXTERNAL | | | External | | | LAB | | + +---------+ + + + + +---------+ + + | Performing | Address | City/State/Zipcode | Phone Number | | Organization | | | | + +---------+ + + | EXTERNAL LAB | | | | + +---------+ + + External Lab: Magnesium (11/20/2017) + +-------+ + + + | Component | Value | Ref Range | Performed | Pathologist | | | | | At | Signature | + +-------+ + + + | Magnesium, | 1.9 | 1.7 - 2.5 | EXTERNAL | | | External | | | LAB | | + +-------+ + + + + +---------+ + + | Performing | Address | City/State/Zipcode | Phone Number | | Organization | | | | + +---------+ + + | EXTERNAL LAB | | | | + +---------+ + + External Lab: Calcium (11/20/2017) + +-------+ + + + | Component | Value | Ref Range | Performed | Pathologist | | | | | At | Signature | + +-------+ + + + | Calcium, | 9.4 | 8.4 - 10.2 | EXTERNAL | | | External | | | LAB | | + +-------+ + + + + +---------+ + + | Performing | Address | City/State/Zipcode | Phone Number | | Organization | | | | + +---------+ + + | EXTERNAL LAB | | | | + +---------+ + + External Lab: Carbon Dioxide (11/20/2017) + +-------+ + + + | Component | Value | Ref Range | Performed | Pathologist | | | | | At | Signature | + +-------+ + + + | Carbon | 27 | 19 - 31 | EXTERNAL | | | Dioxide, | | | LAB | | | External | | | | | + +-------+ + + + + +---------+ + + | Performing | Address | City/State/Zipcode | Phone Number | | Organization | | | | + +---------+ + + | EXTERNAL LAB | | | | + +---------+ + + External Lab: Chloride (11/20/2017) + +-------+ + + + | Component | Value | Ref Range | Performed | Pathologist | | | | | At | Signature | + +-------+ + + + | Chloride, | 102 | 95 - 112 | EXTERNAL | | | External | | | LAB | | + +-------+ + + + + +---------+ + + | Performing | Address | City/State/Zipcode | Phone Number | | Organization | | | | + +---------+ + + | EXTERNAL LAB | | | | + +---------+ + + External Lab: Potassium (11/20/2017) + +-------+ + + + | Component | Value | Ref Range | Performed | Pathologist | | | | | At | Signature | + +-------+ + + + | Potassium, | 4.3 | 3.6 - 5.1 | EXTERNAL | | | External | | | LAB | | + +-------+ + + + + +---------+ + + | Performing | Address | City/State/Zipcode | Phone Number | | Organization | | | | + +---------+ + + | EXTERNAL LAB | | | | + +---------+ + + External Lab: Sodium (11/20/2017) + +-------+ + + + | Component | Value | Ref Range | Performed | Pathologist | | | | | At | Signature | + +-------+ + + + | Sodium, | 139 | 132 - 143 | EXTERNAL | | | External | | | LAB | | + +-------+ + + + + +---------+ + + | Performing | Address | City/State/Zipcode | Phone Number | | Organization | | | | + +---------+ + + | EXTERNAL LAB | | | | + +---------+ + + External Lab: CBC (11/20/2017) + + + + + + | Component | Value | Ref Range | Performed | Pathologist | | | | | At | Signature | + + + + + + | WBC, | 8.1 | 4.5 - 11 | EXTERNAL | | | External | | | LAB | | + + + + + + | HGB, | 14.2 | 12 - 16 | EXTERNAL | | | External | | | LAB | | + + + + + + | HCT, | 43.0 | 35 - 45 | EXTERNAL | | | External | | | LAB | | + + + + + + | PLT, | 283 | 140 - 440 | EXTERNAL | | | External | | | LAB | | + + + + + + | Neutrophils | 67.9 | 39 - 80 | EXTERNAL | | | %, | | | LAB | | | External | | | | | + + + + + + | Lymphocytes | 22.9 (A) | 24 - 44 | EXTERNAL | | | %, | | | LAB | | | External | | | | | + + + + + + | Monocytes | 8.8 | 0 - 12 | EXTERNAL | | | %, External | | | LAB | | + + + + + + | Eosinophils | 0.3 | 0 - 6 | EXTERNAL | | | %, | | | LAB | | | External | | | | | + + + + + + | RBC, | 4.79 | 3.8 - 5.1 | EXTERNAL | | | External | | | LAB | | + + + + + + | MCV, | 90 | 81 - 99 | EXTERNAL | | | External | | | LAB | | + + + + + + | RDW, | 13.3 | 10.5 - 15 | EXTERNAL | | | External | | | LAB | | + + + + + + + +---------+ + + | Performing | Address | City/State/Zipcode | Phone Number | | Organization | | | | + +---------+ + + | EXTERNAL LAB | | | | + +---------+ + + External Lab: TSH (11/20/2017) + +-------+ + + + | Component | Value | Ref Range | Performed | Pathologist | | | | | At | Signature | + +-------+ + + + | TSH, | 2.94 | 0.27 - 4.2 | EXTERNAL | | | External | | | LAB | | + +-------+ + + + + + | Specimen | + + | Blood | + + + +---------+ + + | Performing | Address | City/State/Zipcode | Phone Number | | Organization | | | | + +---------+ + + | EXTERNAL LAB | | | | + +---------+ + + External Lab: eGFR (11/20/2017) + +-------+ + + + | Component | Value | Ref Range | Performed | Pathologist | | | | | At | Signature | + +-------+ + + + | eGFR, | 62 | 60 - 99,999 | EXTERNAL | | | External | | | LAB | | + +-------+ + + + + + | Specimen | + + | Blood | + + + +---------+ + + | Performing | Address | City/State/Zipcode | Phone Number | | Organization | | | | + +---------+ + + | EXTERNAL LAB | | | | + +---------+ + + External Lab: Creatinine (11/20/2017) + +-------+ + + + | Component | Value | Ref Range | Performed | Pathologist | | | | | At | Signature | + +-------+ + + + | Creatinine, | 0.90 | 0.7 - 1.25 | EXTERNAL | | | External | | | LAB | | + +-------+ + + + + + | Specimen | + + | Blood | + + + +---------+ + + | Performing | Address | City/State/Zipcode | Phone Number | | Organization | | | | + +---------+ + + | EXTERNAL LAB | | | | + +---------+ + + documented in this encounter Visit Diagnoses Not on filedocumented in this encounter"
--- OUTSIDE RECORDS SUMMARY | ~2019-04-10 | XMS | Encounter Summary ---
Demographics + + + | Address | [address] | | | [place] [address] | + + + | Home Phone | | + + + | Preferred Language | Unknown | + + + | Marital Status | | + + + | Jewish Affiliation | 1061 | + + + | Race | Unknown | + + + | Ethnic Group | Unknown | + + + Author + + + | Author | [facility] | | | and [place] | + + + | Organization | [facility] [...] Team Providers + +------+ + | Care City Dispatcher Name | Role | Phone | + +------+ + | Jony Shi MD | PCP | | + +------+ + Encounter Details +--------+ + + + + | Date | Type | Department | Care Team | Description | +--------+ + + + + | 04/07/ | Episode | [facility] | Renuka Alcantar | | | 2017 | Changes | GASTROENTEROLOGY | L, RN | | | | | [address] | | | | | | [address] | | | | | | [address] | | | | | | [phone] | | | +--------+ + + + [...]
--- OUTSIDE RECORDS SUMMARY | ~2019-04-10 | XMS | Encounter Summary ---
Demographics + + + | Address | [address] | | | [place] [address] | + + + | Home Phone | | + + + | Preferred Language | Unknown | + + + | Marital Status | | + + + | Pentecostal Affiliation | 1061 | + + + | Race | Unknown | + + + | Ethnic Group | Unknown | + + + Author + + + | Author | [facility] | | | and [place] | + + + | Organization | [facility] | | | [...] Team Providers + +------+ + | Care Lead Atg Developer Name | Role | Phone | + +------+ + | Jony Shi MD | PCP | | + +------+ + Encounter Details +--------+ + + + + | Date | Type | Department | Care Team | Description | +--------+ + + + + | 04/23/ | Hospital | [facility] | Manny Puentes MD | Change in bowel | | 2017 | Encounter | [facility] | [address], [place] | habits (Primary Dx); | | | | [address] | [address] [place], [place] | Gastroesophageal | | | | [place], [place] | [address] | reflux disease with | | | | [address] | | esophagitis; | | | | [phone] | | Functional diarrhea | +--------+ + + + + Social [...] + | Blood Pressure | 156/84 | 04/23/2017 1:15 PM | | | | | PST | | + + + + + | Pulse | 95 | 04/23/2017 1:15 PM | | | | | PST | | + + + + + | Temperature | 36.6 C (97.9 F) | 04/23/2017 12:50 PM | | | | | PST | | + + + + + | Respiratory Rate | 16 | 04/23/2017 1:15 PM | | | [...] 128 kg (282 lb 3 oz) | 04/23/2017 11:01 AM | | | | | PST | | + + + + + | Height | 172.7 cm (5' 8") | 04/23/2017 11:01 AM | | | | | PST | | + + + + + | Body Mass Index | 42.91 | 04/23/2017 11:01 AM | | | | | PST | | + + + + + documented in this encounter Medications at Time of Discharge + + + +---------+ + + | Medication | Sig | Dispensed | Refills | Start | End Date | | | | | | Date | | + + + +---------+ + + | acetaminophen | Take 650 mg by mouth | | 0 | | | | (TYLENOL) 325 mg | every 4 hours as | | | | | | tablet | needed for Pain. | | | | | + + + +---------+ + + | albuterol | Inhale 2 puffs into | | 0 | | | | (PROVENTIL HFA) 90 | the lungs every 6 | | | | | | mcg/puff inhaler | hours as needed for | | | | | | | Wheezing. | | | | | + + + +---------+ + + | aspirin 81 mg | Take 81 mg by mouth | | 0 | | | | chewable tablet | Daily. | | | | | + + + +---------+ + + | desipramine | Take 25 mg by mouth | | 0 | | | | (NOPRAMIN) 25 mg | nightly. | | | | | | tablet | | | | | | + + + +---------+ + + | furosemide (LASIX) | Take 40 mg by mouth | | 0 | | | | 40 mg tablet | 2 times daily. | | | | | + + + +---------+ + + | hydroxychloroquine | Take 200 mg by mouth | | 0 | | | | (PLAQUENIL) 200 mg | Daily. | | | | | | tablet | | | | | | + + + +---------+ + + | lactobacillus GG | Take 1 capsule by | | 0 | | | | (CULTURELLE) capsule | mouth as needed. | | | | | + + + +---------+ + + | levothyroxine | Take 150 mcg by | | 0 | | | | (SYNTHROID) 150 mcg | mouth every morning | | | | | | tablet | (before breakfast). | | | | | + + + +---------+ + + | loperamide | Take 2 mg by mouth 4 | | 0 | | | | (IMODIUM) 2 mg | times daily as | | | | | | capsule | needed for Diarrhea. | | | | | + + + +---------+ + + | mesalamine (ASACOL | Take 800 mg by | | 0 | | | | HD) [address] | mouth. Patient takes | | | | | | tablet | once or twice daily | | | | | + + + +---------+ + + | nitroglycerin | Place 0.4 mg under | | 0 | | | | (NITROSTAT) 0.4 mg | the tongue every 5 | | | | | | SL tablet | minutes as needed | | | | | | | for Chest pain. | | | | | + + + +---------+ + + | omeprazole | Take 20 mg by mouth | | 0 | | | | (PRILOSEC) 20 mg | every morning | | | | | | capsule | (before breakfast). | | | | | + + + +---------+ + + | simvastatin | Take 20 mg by mouth | | 0 | | | | (ZOCOR) 20 mg tablet | nightly. | | | | | + + + +---------+ + + | spironolactone | Take 25 mg by mouth | | 0 | | | | (ALDACTONE) 50 mg | 2 times daily. | | | | | | tablet | | | | | | + + + +---------+ + + | diclofenac | Take 50 mg by mouth | | 0 | | | | (VOLTAREN) 75 mg EC | 2 times daily. | | | | 8 | | tablet | | | | | | + + + +---------+ + + | ergocalciferol | Take 50,000 Units by | | 0 | | | | (VITAMIN D2) [address] | mouth Once a week. | | | | 8 | | units capsule | | | | | | + + + +---------+ + + | ondansetron | Take 1 tablet by | 2 | 0 | 03/24/20 | | | (ZOFRAN) 4 mg tablet | mouth as needed for | tablet | | 17 | 8 | | | Nausea. Begin bowel | | | | | | | prep, if nausea, | | | | | | | stop prep, take med | | | | | | | and restart prep 1 | | | | | | | hr later. | | | | | + + + +---------+ + + | potassium chloride | Take 20 mEq by mouth | | 0 | | | | 20 mEq/15 mL liquid | Daily. | | | | 8 | + + + +---------+ + + documented as of this encounter Plan of Treatment Not on filedocumented as of this encounter Procedures + +--------+ + + + | Procedure Name | Priori | Date/Time | Associated Diagnosis | Comments | | | ty | | | | + +--------+ + + + | CAMPYLOBACTER | Routin | 04/23/2017 | | Results for this | | AG,QUAL | e | 12:31 PM | | procedure are in the | | | | PST | | results section. | + +--------+ + + + | CULTURE, STOOL | Routin | 04/23/2017 | | Results for this | | RESULT | e | 12:31 PM | | procedure are in the | | | | PST | | results section. | + +--------+ + + + | SHIGATOXIN 1 AND 2 | Routin | 04/23/2017 | | Results for this | | | e | 12:31 PM | | procedure are in the | | | | PST | | results section. | + +--------+ + + + | LACTOFERRIN, FECAL, | Routin | 04/23/2017 | | Results for this | | QUAL | e | 12:31 PM | | procedure are in the | | | | PST | | results section. | + +--------+ + + + | OVA AND PARASITE | Routin | 04/23/2017 | | Results for this | | EXAMINATION | e | 12:31 PM | | procedure are in the | | | | PST | | results section. | + +--------+ + + + | CRYPTOSPORIDIUM AG | Routin | 04/23/2017 | | Results for this | | | e | 12:31 PM | | procedure are in the | | | | PST | | results section. | + +--------+ + + + | GIARDIA AG, EIA, | Routin | 04/23/2017 | | Results for this | | STOOL | e | 12:31 PM | | procedure are in the | | | | PST | | results section. | + +--------+ + + + | CLOSTRIDIUM | Routin | 04/23/2017 | | Results for this | | DIFFICILE A AND B | e | 12:31 PM | | procedure are in the | | EIA | | PST | | results section. | + +--------+ + + + | CULTURE, STOOL | Routin | 04/23/2017 | | Results for this | | | e | 12:31 PM | | procedure are in the | | | | PST | | results section. | + +--------+ + + + | HELICOBACTER PYLORI | Routin | 04/23/2017 | | Results for this | | BIOPSY | e | 12:16 PM | | procedure are in the | | | | PST | | results section. | + +--------+ + + + | COLONOSCOPY | | 04/23/2017 | Gastroesophageal | | | | | 12:05 PM | reflux disease, | | | | | PST | esophagitis presence | | | | | | not specified | | | | | | (K21.9), Change in | | | | | | bowel habits | | | | | | (R19.4), BMI | | | | | | 40.0-44.9, adult | | | | | | ([facility]) (Z68.41), | | | | | | History of colitis | | | | | | (Z87.19) E66.9 | | | | | | obesity | | + +--------+ + + + | EGD | | 04/23/2017 | Gastroesophageal | | | | | 12:05 PM | reflux disease, | | | | | PST | esophagitis presence | | | | | | not specified | | | | | | (K21.9), Change in | | | | | | bowel habits | | | | | | (R19.4), BMI | | | | | | 40.0-44.9, adult | | | | | | ([facility]) (Z68.41), | | | | | | History of colitis | | | | | | (Z87.19) E66.9 | | | | | | obesity | | + +--------+ + + + | EGD | Routin | 04/23/2017 | | Results for this | | | e | 11:59 AM | | procedure are in the | | | | PST | | results section. | + +--------+ + + + | COLONOSCOPY | Routin | 04/23/2017 | | Results for this | | | e | 11:58 AM | | procedure are in the | | | | PST | | results section. | + +--------+ + + + | SURGICAL PATHOLOGY | Routin | 04/23/2017 | | Results for this | | EXAM | e | 12:00 AM | | procedure are in the | | | | PST | | results section. | + +--------+ + + + documented in this encounter Results Campylobacter Lizabeth Marti (04/23/2017 12:31 PM PST) + + + + + + | Component | Value | Ref Range | Performed | Pathologist | | | | | At | Signature | + + + + + + | Campylobact | Negative | Negative | [facility] | | | er AG, Qual | | | [facility] | | | | | | MEDICAL | | | | | | CENTER - | | | | | | LABORATORY | | + + + + + + + + | Specimen | + + | Stool - Stool | | specimen (specimen) | + + + + + + + | Performing | Address | City/State/Zipcode | Phone Number | | Organization | | | | + + + + + | [facility] | [address] | [place] | [phone] | | [facility] | | [address] | | | - LABORATORY | | | | + + + + + Culture, Stool Result (04/23/2017 12:31 PM PST) + + + + + + | Component | Value | Ref Range | Performed | Pathologist | | | | | At | Signature | + + + + + + | Culture | No Salmonella, Shigella, | | [facility] | | | | Aeromonas, Plesiomonas, | | [facility] | | | | E. coli O157 or | | MEDICAL | | | | Yersinia isolated. | | CENTER - | | | | | | LABORATORY | | + + + + + + | Culture | 2+ Usual FloraComment: | | [facility] | | | | Consistent with usual | | [facility] | | | | enteric rajat. | | MEDICAL | | | | | | CENTER - | | | | | | LABORATORY | | + + + + + + + + | Specimen | + + | Stool - Stool | | specimen (specimen) | + + + + + + + | Performing | Address | City/State/Zipcode | Phone Number | | Organization | | | | + + + + + | [facility] | [address] | [place] | [phone] | | [facility] | | [address] | | | - LABORATORY | | | | + + + + + Shigatoxin 1 and 2 (04/23/2017 12:31 PM PST) + + + + + + | Component | Value | Ref Range | Performed | Pathologist | | | | | At | Signature | + + + + + + | Shigatoxin | Negative | Negative | [facility] | | | 1 | | | [facility] | | | | | | MEDICAL | | | | | | CENTER - | | | | | | LABORATORY | | + + + + + + | Shigatoxin | Negative | Negative | [facility] | | | 2 | | | [facility] | | | | | | MEDICAL | | | | | | CENTER - | | | | | | LABORATORY | | + + + + + + + + | Specimen | + + | Stool - Stool | | specimen (specimen) | + + + + + + + | Performing | Address | City/State/Zipcode | Phone Number | | Organization | | | | + + + + + | [facility] | [address] | [place] | [phone] | | [facility] | | [address] | | | - LABORATORY | | | | + + + + + Ova and Parasite Examination (04/23/2017 12:31 PM PST) + + + + + + | Component | Value | Ref Range | Performed | Pathologist | | | | | At | Signature | + + + + + + | O/P IDENT | See CommentsComment: | | [facility] | | | | Accession No. | | [facility] | | | | | | | | | | [id number] | | | | | | Source | | | | | | StoolResult | | | | | | | | | | | | No Ova or | | | | | | Parasites seen | | | | | | | | | | | | This test | | | | | | will not detect | | | | | | Cyclospora, | | | | | | | | | | | | | | | | | | Cryptosporidium or | | | | | | Cystoisospora | | | | | | | | | | | | | | | | | | (Isospora). For these | | | | | | organisms | | | | | | | | | | | | refer to | | | | | | Coccidia Stain (test | | | | | | code | | | | | | | | | | | | CRYSM). | | | | + + + + + + | O/P REPORT | Report Status | | REFERENCE | | | STAT | Final | | [facility] | | | | 04/24/2017Comment: | | | | | | Testing Performed: | | | | | | [facility] | | | | | | [facility], [address] | | | | | | [place] [address] | | | | + + + + + + + + | Specimen | + + | Stool - Stool | | specimen (specimen) | + + + + + + + | Performing | Address | City/State/Zipcode | Phone Number | | Organization | | | | + + + + + | [facility] | [address] | [place] [address] | [phone] | + + + + + Lactoferrin, Fecal, Qual (04/23/2017 12:31 PM PST) + + + + + + | Component | Value | Ref Range | Performed | Pathologist | | | | | At | Signature | + + + + + + | Lactoferrin | Negative | Negative | [facility] | | | , Qual | | | [facility] | | | | | | MEDICAL | | | | | | CENTER - | | | | | | LABORATORY | | + + + + + + + + | Specimen | + + | Stool - Stool | | specimen (specimen) | + + + + + + + | Performing | Address | City/State/Zipcode | Phone Number | | Organization | | | | + + + + + | [facility] | [address] | [place] | [phone] | | [facility] | | [address] | | | - LABORATORY | | | | + + + + + Clostridium difficile A and B EIA (04/23/2017 12:31 PM PST) + + + + + + | Component | Value | Ref Range | Performed | Pathologist | | | | | At | Signature | + + + + + + | Clostridium | NegativeComment: | Negative | [facility] | | | Difficile | Negative for toxigenic | | [facility] | | | [facility] | Clostridium difficile | | MEDICAL | | | | | | CENTER - | | | | | | LABORATORY | | + + + + + + | C. Diff | Negative | Negative | [facility] | | | Toxin A/B | | | [facility] | | | EIA | | | MEDICAL | | | | | | CENTER - | | | | | | LABORATORY | | + + + + + + + + | Specimen | + + | Stool - Stool | | specimen (specimen) | + + + + + + + | Performing | Address | City/State/Zipcode | Phone Number | | Organization | | | | + + + + + | [facility] | [address] | [place] | [phone] | | [facility] | | [address] | | | - LABORATORY | | | | + + + + + Cryptosporidium Ag (04/23/2017 12:31 PM PST) + + + + + + | Component | Value | Ref Range | Performed | Pathologist | | | | | At | Signature | + + + + + + | Cryptospori | Negative | Negative | [facility] | | | dium | | | [facility] | | | Antigen | | | MEDICAL | | | | | | CENTER - | | | | | | LABORATORY | | + + + + + + + + | Specimen | + + | Stool - Stool | | specimen (specimen) | + + + + + + + | Performing | Address | City/State/Zipcode | Phone Number | | Organization | | | | + + + + + | [facility] | [address] | [place] | [phone] | | [facility] | | [address] | | | - LABORATORY | | | | + + + + + Giardia Ag, EIA, Stool (04/23/2017 12:31 PM PST) + + + + + + | Component | Value | Ref Range | Performed | Pathologist | | | | | At | Signature | + + + + + + | Giardia | Negative | Negative | [facility] | | | Antigen, | | | [facility] | | | Stool | | | MEDICAL | | | | | | CENTER - | | | | | | LABORATORY | | + + + + + + + + | Specimen | + + | Stool - Stool | | specimen (specimen) | + + + + + + + | Performing | Address | City/State/Zipcode | Phone Number | | Organization | | | | + + + + + | [facility] | [address] | [place] | [phone] | | [facility] | | [address] | | | - LABORATORY | | | | + + + + + Helicobactor pylori Biopsy (04/23/2017 12:16 PM PST) + + + + + + | Component | Value | Ref Range | Performed | Pathologist | | | | | At | Signature | + + + + + + | Helicobacte | Negative | Negative | [facility] | | | r pylori Ag | | | [facility] | | | | | | MEDICAL | | | | | | CENTER - | | | | | | LABORATORY | | + + + + + + + + | Specimen | + + | Tissue - Entire | | pyloric antrum (body | | structure) | + + + + + + + | Performing | Address | City/State/Zipcode | Phone Number | | Organization | | | | + + + + + | [facility] | [address] | [place] | [phone] | | [facility] | | [address] | | | - LABORATORY | | | | + + + + + EGD (04/23/2017 11:59 AM PST) + + | Specimen | + + | | + + + + -+ | Narrative | Performed At | + + -+ | | [facility] | | GastroenterologyPatient Name: Vanesa Loaiza Date: 04/23/2017 | [facility] | | 11:59 AMMRN: [id number] #: [id number] of : | | | 1950Admit Type: AmbulatoryAge: 66Room: [facility] 01Gender: FemaleNote | | | Status: FinalizedAttending MD: Manny Puentes , MDProcedure: | | | Upper GI endoscopyIndications: Esophageal reflux, For | | | therapy of esophageal reflux, | | | DiarrheaProviders: Manny Puentes MD, Joan Alvarado | | | KRISTINE Prabhakar, Negar Ruiz, | | | Road Monkey, Romario Herzog MD (Anesthesia | | | Staff)Referring MD: Jony Shi MD (Referring | | | MD)Medicines: Sedation Required Anesthesia Staff | | | AssistanceComplications: No immediate complications. Estimated | | | blood loss: Minimal.Procedure: Pre-Anesthesia Assessment: | | | - Prior to the procedure, a History and Physical was performed, and | | | patient medications, allergies and sensitivities were reviewed. | | | The patient's tolerance of previous anesthesia was reviewed. | | | - Prior to the procedure, a History and Physical was performed, | | | and patient medications and allergies were reviewed. The | | | patient is competent. The risks and benefits of the procedure | | | and the sedation options and risks were discussed with the | | | patient. All questions were answered and informed consent was | | | obtained. Patient identification and proposed procedure were | | | verified by the physician, the nurse, the anesthesiologist and | | | the central service technician in the endoscopy suite. Mental Status | | | Examination: alert and oriented. Airway Examination: | | | small/crowded oropharyngeal airway and Mallampati Class III (part of | | | the uvula and soft palate visualized). Prophylactic | | | Antibiotics: The patient does not require prophylactic | | | antibiotics. Prior Anticoagulants: The patient has taken no | | | previous anticoagulant or antiplatelet agents. ASA Grade | | | Assessment: III - A patient with severe systemic disease. After | | | reviewing the risks and benefits, the patient was deemed in | | | satisfactory condition to undergo the procedure. The anesthesia | | | plan was to use monitored anesthesia care (MAC). Immediately | | | prior to administration of medications, the patient was | | | re-assessed for adequacy to receive sedatives. The heart rate, | | | respiratory rate, oxygen saturations, blood pressure, adequacy | | | of pulmonary ventilation, and response to care were monitored | | | throughout the procedure. The physical status of the patient | | | was re-assessed after the procedure. - After reviewing the risks | | | and benefits, the patient was deemed in satisfactory condition | | | to undergo the procedure. - Using IV propofol under the | | | supervision of an anesthesiologist was determined to be | | | medically necessary for this procedure based on age 65 or | | | older, severe comorbidity (greater than ASA Grade II), morbid | | | obesity, patient's history of problems with anesthesia and patient's | | | anxiety. - Immediately prior to administration of | | | medications, the patient was re-assessed for adequacy to | | | receive sedatives. - The heart rate, respiratory rate, oxygen | | | saturations, blood pressure, adequacy of pulmonary ventilation, | | | and response to care were monitored throughout the procedure. | | | - The physical status of the patient was re-assessed after the | | | procedure. After obtaining informed consent, the endoscope was | | | passed under direct vision. Throughout the procedure, the | | | patient's blood pressure, pulse, and oxygen saturations were | | | monitored continuously. The Endoscope was introduced through | | | the mouth, and advanced to the third part of duodenum. The | | | upper GI endoscopy was accomplished without difficulty. The | | | patient tolerated the procedure well.Findings: The | | | cricopharyngeus, upper third of the esophagus, middle third of the | | | esophagus and lower third of the esophagus were normal. The | | | Z-line was regular and was found 30 cm from the incisors. A 10 | | | cm hiatal hernia was found. The proximal extent of the gastric | | | folds (end of tubular esophagus) was 30 cm from the incisors. The | | | hiatal narrowing was 40 cm from the incisors. The Z-line was 30 | | | cm from the incisors. Several Braulio ulcerations were noted | | | Multiple small sessile fundic gland polyps with no bleeding and | | | no stigmata of recent bleeding were found in the cardia and in | | | the gastric fundus. Diffuse mild inflammation | | | characterized by erythema and friability was found in the | | | gastric antrum. Biopsies were taken with a cold forceps for | | | Helicobacter pylori testing using CLOtest. Verification of patient | | | identification for the specimen was done. Estimated blood loss was | | | minimal. The duodenal bulb, first portion of the | | | duodenum, second portion of the duodenum, area of the papilla | | | and third portion of the duodenum were normal. Biopsies for | | | histology were taken with a cold forceps for evaluation of | | | celiac disease. Verification of patient identification for the | | | specimen was done. Estimated blood loss was minimal. The | | | retroflexed view confirmed previous findings,Impression: - | | | Normal cricopharyngeus, upper third of esophagus, middle third of | | | esophagus and lower third of esophagus. - Z-line regular, 30 | | | cm from the incisors. - 10 cm hiatal hernia. - Multiple | | | fundic gland polyps. - Gastritis. Biopsied. - Normal | | | duodenal bulb, first portion of the duodenum, second portion of | | | the duodenum, area of the papilla and third portion of the duodenum. | | | Biopsied. - The retroflexed view confirmed previous | | | findings,Recommendation: - Patient has a contact number | | | available for emergencies. The signs and symptoms of potential | | | delayed complications were discussed with the patient. Return | | | to normal activities tomorrow. Written discharge instructions | | | were provided to the patient. - Discharge patient to home | | | (ambulatory). - Resume previous diet today. - Perform a | | | colonoscopy today. - Follow an antireflux regimen indefinitely. | | | - Continue present medications. - Await pathology results. | | | - Return to primary care physician as previously scheduled. | | | - Telephone GI clinic for pathology results in 1 week.Manny Conner | | | MD Dhaval04/23/2017 12:51:49 PMThis report has been signed | | | electronically.Number of Addenda: 0Note Initiated On: 04/23/2017 11:59 | | | AMTotal Procedure Duration: 0 hours 6 minutes 56 seconds Scope In: | | | 12:14:43 PMScope Out: 12:21:39 PM [facility] | | | [place], [address] [place] [id number] | | | instructions were provided to the patient. | | | - Discharge patient to home (ambulatory). | | | - Resume previous diet today. | | | - Perform a colonoscopy today. | | | - Follow an antireflux regimen indefinitely. | | | - Continue present medications. | | | - Await pathology results. | | | - Return to primary care physician as previously scheduled. | | | - Telephone GI clinic for pathology results in 1 week. | | |Manny Puentes MD | | |04/23/2017 12:51:49 PM | | |This report has been signed electronically. | | |Number of Addenda: 0 | | |Note Initiated On: 04/23/2017 11:59 AM | | |Total Procedure Duration: 0 hours 6 minutes 56 seconds | | |Scope In: 12:14:43 PM | | |Scope Out: 12:21:39 PM | | | [facility], [address], [place] | | | [address] | | + + -+ + +---------+ + + | Performing | Address | City/State/Zipcode | Phone Number | | Organization | | | | + +---------+ + + | [facility] [place] | | | | + +---------+ + + COLONOSCOPY (04/23/2017 11:58 AM PST) + + | Specimen | + + | | + + + + -+ | Narrative | Performed At | + + -+ | | [facility] | | GastroenterologyPatient Name: Vanesa PrescottProcedure Date: 04/23/2017 | [facility] | | 11:58 AMMRN: [id number] #: [id number] of : | | | 1950Admit Type: AmbulatoryAge: 66Room: [facility] 01Gender: FemaleNote | | | Status: FinalizedAttending MD: Manny Puentes , [facility]rocedure: | | | ColonoscopyIndications: Clinically significant diarrhea | | | of unexplained originProviders: Manny Puentes MD, | | | Joan Prabhakar RN, Cassi | | | Jack, Road Monkey, Romario Herzog MD (Anesthesia Staff)Referring | | | MD: Jony Shi MD (Referring MD)Medicines: | | | Sedation Required Anesthesia Staff AssistanceComplications: No | | | immediate complications. Estimated blood loss: Minimal.Procedure: | | | Pre-Anesthesia Assessment: - Prior to the procedure, a | | | History and Physical was performed, and patient medications, | | | allergies and sensitivities were reviewed. The patient's | | | tolerance of previous anesthesia was reviewed. - Prior to the | | | procedure, a History and Physical was performed, and patient | | | medications and allergies were reviewed. The patient is | | | competent. The risks and benefits of the procedure and the sedation | | | options and risks were discussed with the patient. All questions | | | were answered and informed consent was obtained. Patient | | | identification and proposed procedure were verified by the | | | physician, the nurse, the anesthesiologist and the central service technician. | | | Prophylactic Antibiotics: The patient does not require | | | prophylactic antibiotics. Prior Anticoagulants: The patient has | | | taken no previous anticoagulant or antiplatelet agents. ASA | | | Grade Assessment: III - A patient with severe systemic disease. | | | After reviewing the risks and benefits, the patient was deemed in | | | satisfactory condition to undergo the procedure. The anesthesia | | | plan was to use monitored anesthesia care (MAC). Immediately | | | prior to administration of medications, the patient was | | | re-assessed for adequacy to receive sedatives. The heart rate, | | | respiratory rate, oxygen saturations, blood pressure, adequacy | | | of pulmonary ventilation, and response to care were monitored | | | throughout the procedure. The physical status of the patient | | | was re-assessed after the procedure. - After reviewing the risks | | | and benefits, the patient was deemed in satisfactory condition | | | to undergo the procedure. - Using IV propofol under the | | | supervision of an anesthesiologist was determined to be | | | medically necessary for this procedure based on age 65 or | | | older, severe comorbidity (greater than ASA Grade II), patient's | | | history of problems with anesthesia and patient's anxiety. | | | After I obtained informed consent, the scope was passed under direct | | | vision. Throughout the procedure, the patient's blood pressure, | | | pulse, and oxygen saturations were monitored continuously. The | | | Colonoscope was introduced through the anus and advanced to. | | | The colonoscopy was performed without difficulty. The patient | | | tolerated the procedure well. The quality of the bowel | | | preparation was excellent.Findings: The perianal and digital | | | rectal examinations were normal. Pertinent negatives include | | | normal sphincter tone and no palpable rectal lesions. The | | | descending colon and transverse colon were moderately redundant. | | | Normal mucosa was found in the entire colon. Biopsies for histology | | | were taken with a cold forceps from the ascending colon and | | | descending colon for evaluation of microscopic colitis. | | | The exam was otherwise without abnormality. The retroflexed view | | | of the distal rectum and anal verge was normal and showed no | | | anal or rectal abnormalities. A few small-mouthed diverticula | | | were found in the sigmoid colon. There was narrowing of the | | | colon in association with the diverticular opening. There was | | | evidence of diverticular spasm. There was no evidence of | | | diverticular bleeding.Impression: - Redundant colon. - | | | Normal mucosa in the entire examined colon. Biopsied. - The | | | examination was otherwise normal. - The distal rectum and anal | | | verge are normal on retroflexion view.Recommendation: - Patient | | | has a contact number available for emergencies. The signs and | | | symptoms of potential delayed complications were discussed with the | | | patient. Return to normal activities tomorrow. Written discharge | | | instructions were provided to the patient. - Discharge | | | patient to home (ambulatory). - Resume previous diet today. | | | - Continue present medications. - Await pathology results. | | | - Return to primary care physician as previously scheduled. | | | - Telephone GI clinic for pathology results in 1 week. - | | | Telephone GI clinic if symptomatic.Manny Puentes MD04/24/2017 | | | 7:49:16 AMThis report has been signed electronically.Number of | | | Addenda: 0Note Initiated On: 04/23/2017 11:58 AMScope Withdrawal Time: | | | 0 hours 7 minutes 31 seconds Total Procedure Duration: 0 hours 16 | | | minutes 8 seconds Scope In: 12:23:36 PMScope Out: 12:39:44 PM | | | [facility], [address], [place] | | | [address] | | | - Continue present medications. | | | - Await pathology results. | | | - Return to primary care physician as previously scheduled. | | | - Telephone GI clinic for pathology results in 1 week. | | | - Telephone GI clinic if symptomatic. | | |Manny Puentes MD | | |04/24/2017 7:49:16 AM | | |This report has been signed electronically. | | |Number of Addenda: 0 | | |Note Initiated On: 04/23/2017 11:58 AM | | |Scope Withdrawal Time: 0 hours 7 minutes 31 seconds | | |Total Procedure Duration: 0 hours 16 minutes 8 seconds | | |Scope In: 12:23:36 PM | | |Scope Out: 12:39:44 PM | | | [facility], [address] [facility] [place], [place] | | | [address] | | + + -+ + +---------+ + + | Performing | Address | City/State/Zipcode | Phone Number | | Organization | | | | + +---------+ + + | [facility] | | | | + +---------+ + + Surgical Pathology Exam (04/23/2017 12:00 AM PST) + + | Specimen | + + | | + + + + + | Narrative | Performed At | + + + | SPECIMEN(S): A DUODENAL BIOPSY SPECIMEN(S): B RIGHT COLON BIOPSY | [facility] | | SPECIMEN(S): C LEFT COLON BIOPSY SPECIMEN SOURCE: A. DUODENAL BIOPSY | [facility] | | B. RIGHT COLON BIOPSY C. LEFT COLON BIOPSY CLINICAL HISTORY: | | | K21.9 (gastroesophageal reflux disease without esophagitis), R19.4 | | | (change in bowel habit), Z68.41Body mass index (BMI) 40 or greater, | | | adult (), Z87.19 (personal history of other diseases of the digestive | | | system) MICROSCOPIC DESCRIPTION: Histologic sections of all | | | submitted blocks are examined by light microscopy. These findings, | | | together with the gross examination, support the pathologic diagnosis. | | | FINAL PATHOLOGIC DIAGNOSIS: A. Duodenal biopsy: - Benign | | | duodenal mucosa, negative for specific diagnostic abnormality. B. | | | Right colon biopsy: - Benign colonic mucosa, negative for specific | | | diagnostic abnormality. C. Left colon biopsy: - Benign colonic | | | mucosa, negative for specific diagnostic abnormality. JVR:cox monett:C2NR | | | GROSS DESCRIPTION: The specimen is received in three parts. A. The | | | specimen is labeled "Vanesa Prescott" and designated "duodenal bx" | | | on the requisition. Received in formalin are six pink-stoddard colored | | | tissue fragments, 0.25-0.4 cm, all into (A1). B. The specimen is | | | labeled "Kenyon Vanesa Dneise" and designated "right colon bx" on the | | | requisition. Received in formalin are six pink-stoddard colored tissue | | | fragments, 0.3-0.6 cm, all into (B1). C. The specimen is labeled | | | "Vanesa Prescott" and designated "left colon bx" on the requisition. | | | Received in formalin are four pink-stoddard colored tissue fragments, | | | 0.18-0.3 cm, all into (C1). yt:TAMMIE:yarelis PERFORMING LABORATORY: | | | Tissue processing and slide preparation were performed by [facility] | | | [facility], [address], [place] [address] | | | (Key Sander: Doug Lovelace M.D. CLIA#: [id number]). | | | Professional interpretation was performed by [facility], | | | [facility], [address] | | | [place] [address] (Key Sander: Doug Lovelace M.D.; CLIA#: | | | [id number]). Diagnostician: Doug Lovelace MD Pathologist | | | Electronically Signed 04/24/2017 | | + + + + +---------+ + + | Performing | Address | City/State/Zipcode | Phone Number | | Organization | | | | + +---------+ + + | [facility] | | | | | [facility] | | | | + +---------+ + + documented in this encounter Visit Diagnoses + + | Diagnosis | + + | Change in bowel habits - Primary Other symptoms involving digestive system | + + | Gastroesophageal reflux disease with esophagitis | + + | Functional diarrhea | + + documented in this encounter Administered Medications + +---------+ [...] | | | | | CONTINUOUS, Starting Fri04/23/17 | | AM PST | | | | | at 1215, Pre-op | | | | | | + +---------+ +------+------+------+ + +---+ | | | + +---+ | ondansetron (ZOFRAN) injection | | | 4 mg 4 mg, Oral, EVERY 4 HOURS | | | PRN, Nausea, Vomiting, Starting | | | Fri04/23/17 at 1308, | | | Recovery/Phase I | | + +---+ | | | + +---+ documented in this encounter
--- OUTSIDE RECORDS SUMMARY | ~2019-04-10 | XMS | Encounter Summary ---
Demographics + + + | Address | [address] | | | [place] [address] | + + + | Home Phone | | + + + | Preferred Language | Unknown | + + + | Marital Status | | + + + | Rastafari Affiliation | 1061 | + + + | Race | Unknown | + + + | Ethnic Group | Unknown | + + + Author + + + | Author | [facility] | | | and [place] | + + + | Organization | [facility] | | | [...] Team Providers + +------+ + | Care Medication Technician Name | Role | Phone | [...] [place] | | | | | | [address] | | | | | | [phone] | | | +--------+ + + + [...]
--- OUTSIDE RECORDS SUMMARY | ~2019-04-10 | XMS | Encounter Summary ---
Demographics + + + | Address | [address] | | | [place] [address] | + + + | Home Phone | | + + + | Preferred Language | Unknown | + + + | Marital Status | | + + + | Hoahaoism Affiliation | 1061 | + + + | Race | Unknown | + + + | Ethnic Group | Unknown | + + + Author + + + | Author | [facility] | | | and [place] | + + + | Organization | [facility] | | | and [place] | + + + | Address | Unknown | + + + | Phone | Unavailable | + + + Support + + +---------+ + | Name | Relationship | Address | Phone | + + +---------+ + | Tamri Prescott | ECON | Unknown | | + + +---------+ + Care Team Providers + +------+ + | Care College Or University Faculty Member Name | Role | Phone | + +------+ + PCP | Unavailable | + +------+ + Encounter Details +--------+ + + + + | Date | Type | Department | Care Team | Description | +--------+ + + + + | 08/02/ | Hospital | [facility] | Manny Puentes MD | | | 2008 | Encounter | MED CTR GENERIC OP | [address] | | | | | CONV DEPT [address] | [address] [place], [place] | | | | | [place], | [address] | | | | | [place] [address] | | | | | | [phone] | | | +--------+ + + + [...]
--- OUTSIDE RECORDS SUMMARY | ~2019-04-10 | XMS | Encounter Summary ---
Demographics + + + | Address | [address] | | | [place] [address] | + + + | Home Phone | | + + + | Preferred Language | Unknown | + + + | Marital Status | | + + + | Rastafarian Affiliation | 1061 | + + + | Race | Unknown | + + + | Ethnic Group | Unknown | + + + Author + + + | Author | [facility] | | | and [place] | + + + | Organization | [facility] | | | [...] Team Providers + +------+ + | Care Resin Mixer Name | Role | Phone | + [...] | | | [address] | [address] | | | | | [address] | | | | | | [phone] | | | +--------+ + + + [...]
--- OUTSIDE RECORDS SUMMARY | ~2019-04-10 | XMS | Encounter Summary ---
Demographics + + + | Address | [address] | | | [place] [address] | + + + | Home Phone | | + + + | Preferred Language | Unknown | + + + | Marital Status | | + + + | Rastafarian Affiliation | 1061 | + + + | Race | Unknown | + + + | Ethnic Group | Unknown | + + + Author + + + | Author | [facility] | | | and [place] | + + + | Organization | [facility] | | | and [...] Team Providers + +------+ + | Care Teacher Of The Visually Impaired Name | Role | Phone | + +------+ + | Renaldo Nolasco MD | PCP | | + +------+ + Reason for Visit + + + | Reason | Comments | + + + | Follow-up, Office | | | Visit | | + + + | Ulcerative Colitis | | + + + | Annual Visit | | + + + Evaluate & Treat (Routine) +--------+--------+ + + + + | Status | Reason | Specialty | Diagnoses / | Referred By | Referred To | | | | | Procedures | Contact | Contact | +--------+--------+ + + + + | Closed | | Gastroenterol | Diagnoses | Constance, | Dhaval, | | | | marcellus | Ulcerative | Renaldo Chung, | Manny Holley MD | | | | | colitis, | MD [address] | [address], | | | | | unspecified, | [address] | [address] | | | | | without | [place], | [place], | | | | | complication | [place] [address] | [place] [address] | | | | | s (HCC) | Phone: | Phone: | | | | | Procedures | [phone] | [phone] | | | | | office visit | Fax: | Fax: | | | | | | [phone] | [phone] | +--------+--------+ + + + + Encounter Details +--------+---------+ + + + | Date | Type | Department | Care Team | Description | +--------+---------+ + + + | 04/06/ | Office | [facility] | Manny Puentes MD | Irritable bowel | | 2018 | Visit | GASTROENTEROLOGY | [address], [place] | syndrome with both | | | | [address] [place] | [address] [place], [place] | constipation and | | | | [address] [place], [place] | [address] | diarrhea (Primary | | | | [address] | | Dx) | | | | [phone] | | | +--------+---------+ + + + Social History + + [...] + + + documented in this encounter Progress Notes Manny Puentes MD - 04/06/2018 10:30 AM PST Subjective: Patient ID: Vanesa Prescott is a 67 y.o. female. The patient is seen with respect to change in bowel pattern. The patient has a history of lymphocytic colitis established by sigmoid biopsies in 2008. She's been on Asacol therapy 1 tablet a day since that time. Repeat colonoscopy 2016 was negative for lymphocytic colitis with right and left colonic biopsies. The patient has don e fairly well until May of this year. Her bowel pattern by her report was once a day wi th a formed stool. In May she would have an irregular bowel pattern. She will go 2-3 d ays without moving her bowels and have lower abdominal cramping on the left lower quadrant a nd have repetitive progressively looser stools for approximately 2 hours. She would occasio jonh take some Imodium 1 or 2 tablets and on the same she will not move her bowels for the next several days. The patient denies any change in her diet. She states that broccoli mitchell ns corn and salads all increase her tendency toward diarrhea and left lower quadrant crampi ng. She tolerates dairy products improved without difficulty. Bowel pattern usually occurs in the morning but rarely can occurr in the afternoon. She's had no nocturnal awakening pa lucy denies blood or mucus in the stool. Patient was started on metformin in July of this year for type II diabetes but her symptoms began prior to that time. She was begun on losa rtan in May for blood pressure and renal protective effect due to her diabetes. In odalys tion she did have low phosphate and was taking K-Phos for supplementation. She also discont inued diclofenac due to possible renal injury with no improvement of her symptomatology. She will have increased borigmy cramps and then have repetitive loose stools with urgency. She's had no incontinence. The patient has tried probiotics intermittently without any impr ovement of her symptoms. She does have a long history of alternation in bowel pattern with stress making her symptoms i.e. increased evacuation probable irritable bowel. Patient has tried a probiotic in the past without any significant improvement of her symptoms. Probioti c use was primarily with antibiotic use. The patient's weight is been stable she denies chi lls or fever. Patient denies blood or mucus in the stool. Patient is on desipramine at bed time which may help with his IBS but she finds help with the same with respect to her poor s leep pattern. Patient was appropriately tried to go without PPI therapy but found her sympt oms of reflux etc. greater than she could tolerate on H2 april therapy Review of Systems Constitutional: Positive for fatigue. HENT: Positive for congestion. Gastrointestinal: Positive for abdominal pain and diarrhea. Musculoskeletal: Positive for arthralgias and back pain. Psychiatric/Behavioral: Positive for dysphoric mood and sleep disturbance. Objective: BP 130/80 | Pulse 91 | Resp 16 | Ht 1.727 m (5' 8") | Wt 130.6 kg (287 lb 14.7 oz) | B MD 43.78 kg/m Physical Exam Constitutional: She is oriented to person, place, and time. She appears well-developed and well-nourished. No distress. Ambulates with a cane HENT: Head: Normocephalic and atraumatic. Right Ear: External ear normal. Left Ear: External ear normal. Nose: Nose normal. Mouth/Throat: Oropharynx is clear and moist. No oropharyngeal exudate. Eyes: Pupils are equal, round, and reactive to light. Conjunctivae and EOM are normal. Righ t eye exhibits no discharge. Left eye exhibits no discharge. No scleral icterus. Neck: Normal range of motion. Neck supple. No JVD present. No tracheal deviation present. Cardiovascular: Normal rate, regular rhythm, normal heart sounds and intact distal pulses. Exam reveals no gallop and no friction rub. No murmur heard. Pulmonary/Chest: Effort normal and breath sounds normal. No stridor. No respiratory distres s. She has no wheezes. She has no rales. She exhibits no tenderness. Abdominal: Soft. Bowel sounds are normal. She exhibits no distension and no mass. There is no tenderness. There is no rebound and no guarding. Musculoskeletal: Normal range of motion. She exhibits no edema, tenderness or deformity. Lymphadenopathy: She has no cervical adenopathy. Neurological: She is alert and oriented to person, place, and time. No cranial nerve defici t. Coordination normal. Skin: Skin is warm and dry. No rash noted. She is not diaphoretic. No erythema. No pallor. Psychiatric: She has a normal mood and affect. Her behavior is normal. Judgment and thought content normal. Nursing note and vitals reviewed. Assessment: Probable exacerbation of baseline IBS given negative colonoscopy upper endoscopy in 2017 Possible diagnosis of lymphocytic colitis which clinically does not fit with patient's curr ent bowel pattern, symptoms previously well-controlled on in adequate dose of mesalamine. P ossible contribution of nonsteroidal medication, PPI therapy to the prior diagnosis of lymp hocytic colitis Doubt medication changes contributing to her current symptomatology i.e. metformin starting after symptomatology changed and losartan has a very low incidence of diarrhea type II diab etics i.e. 2-4% Multiple other medical problems stable Plan: Consistent. trial of probiotic to see if we can induce a more normal pattern with respect t o her evacuation, and subsequently ablated repetitive loose watery stools, doubt contributio n of losartan intermittent formalin with respect to the same Continued to PPI due to patient's dependency symptom fine with respect to the same The patient is to call back in 2-3 weeks to see if her symptomatology has improved on the a adrian probiotic regimen. documented in this enc ounter Plan of Treatment Not on filedocumented as of this encounter Visit Diagnoses + + | Diagnosis | + + | Irritable bowel syndrome with both constipation and diarrhea - Primary | + + documented in this encounter
--- OUTSIDE RECORDS SUMMARY | ~2019-04-10 | XMS | Encounter Summary ---
Demographics + + + | Address | [address] | | | [place] [address] | + + + | Home Phone | | + + + | Preferred Language | Unknown | + + + | Marital Status | | + + + | Synagogue Affiliation | 1061 | + + + | Race | Unknown | + + + | Ethnic Group | Unknown | + + + Author + + + | Author | [facility] | | | and [place] | + + + | Organization | [facility] | | | and [...] Team Providers + +------+ + | Care Selvage Machine Operator Name | Role | Phone | + +------+ + | Jony Shi MD | PCP | | + +------+ + Reason for Visit + + + | Reason | Comments | + + + | Irritable Bowel | | | Syndrome | | + + + Evaluate & Treat (Routine) +--------+--------+ + + + + | Status | Reason | Specialty | Diagnoses / | Referred By | Referred To | | | | | Procedures | Contact | Contact | +--------+--------+ + + + + | Closed | | Gastroenterol | Diagnoses | Yuridia, | Dhaval, | | | | ogy | Irritable | Jony | Manny Holley MD | | | | | bowel | MD [place] | [address], | | | | | syndrome | [address] | [address] | | | | | without | [place] | [place], | | | | | diarrhea | [address] | [place] [address] | | | | | Procedures | An[place]a, | Phone: | | | | | Office Visit | [place] | [phone] | | | | | | [address] | Fax: | | | | | | Phone: | [phone] | | | | | | [phone] | | | | | | | Fax: | | | | | | | [phone] | | +--------+--------+ + + + + Encounter Details +--------+---------+ + + + | Date | Type | Department | Care Team | Description | +--------+---------+ + + + | 03/24/ | Office | [facility] | Manny Puentes MD | Gastroesophageal | | 2017 | Visit | GASTROENTEROLOGY | [address], [place] | reflux disease, | | | | [address] [place] | [address] [place], [place] | esophagitis presence | | | | [address] [place], [place] | [address] | not specified | | | | [address] | | (Primary Dx); Change | | | | [phone] | | in bowel habits; | | | | | | BMI 40.0-44.9, adult | | | | | | ([facility]); History of | | | | | | colitis | +--------+---------+ + + + Social History + +-------+ [...] + + + | Blood Pressure | 140/80 | 03/24/2017 2:58 PM | | | | | PDT | | + + + + + | Pulse | 59 | 03/24/2017 2:58 PM | | | | | PDT | | + + + + + | Temperature | 36.8 C (98.2 F) | 03/24/2017 2:58 PM | | | | | PDT | | + + + + + | Respiratory Rate | 16 | 03/24/2017 2:58 PM | | | | | PDT | | + + + + + | Oxygen Saturation | 97% | 03/24/2017 2:58 PM | | | | | PDT | | + + + + + | Inhaled Oxygen | - | - | | | Concentration | | | | + + + + + | Weight | 131.4 kg (289 lb 11 | 03/24/2017 2:58 PM | | | | oz) | PDT | | + + + + + | Height | - | - | | + + + + + | Body Mass Index | 44.05 | 03/19/2017 5:33 PM | | | | | PDT | | + + + + + documented in this encounter Plan of Treatment Not on filedocumented as of this encounter Visit Diagnoses + + | Diagnosis | + + | Gastroesophageal reflux disease, esophagitis presence not specified - Primary | + + | Change in bowel habits Other symptoms involving digestive system | + + | BMI 40.0-44.9, adult (HCC) Body Mass Index 40.0-44.9, adult | + + | History of colitis | + + documented in this encounter"
--- OUTSIDE RECORDS SUMMARY | ~2019-04-10 | XMS | Encounter Summary ---
Demographics + + + | Address | [address] | | | [place] [address] | + + + | Home Phone | | + + + | Preferred Language | Unknown | + + + | Marital Status | | + + + | Pentecostal Affiliation | 1061 | + + + | Race | Unknown | + + + | Ethnic Group | Unknown | + + + Author + + + | Author | [facility] | | | and [place] | + + + | Organization | [facility] | | [...] Team Providers + +------+ + | Care Marine Oiler Name | Role | Phone | + +------+ + | Renaldo Nolasco MD | PCP | | + +------+ + Reason for Visit +--------+ + | Reason | Comments | +--------+ + | Other | Refill | +--------+ + Encounter Details +--------+ + + + + | Date | Type | Department | Care Team | Description | +--------+ + + + + | 01/11/ | Telephone | [facility] | Manny Puentes MD | Other (Refill) | | 2019 | | GASTROENTEROLOGY | [address], [place] | | | | | [address] [place] | [address] [place], [place] | | | | | [address] [place], [place] | [address] | | | | | [address] | | | | | | [phone] | | | +--------+ + + + [...]
--- OUTSIDE RECORDS SUMMARY | ~2019-04-10 | XMS | Encounter Summary ---
Demographics + + + | Address | [address] | | | [place] [address] | + + + | Home Phone | | + + + | Preferred Language | Unknown | + + + | Marital Status | | + + + | Sabianism Affiliation | 1061 | + + + | Race | Unknown | + + + | Ethnic Group | Unknown | + + + Author + + + | Author | [facility] | | | and [place] | + + + | Organization | [facility] | | | [...] Team Providers + +------+ + | Care Plasma Processing Centrifuge Operator Name | Role | Phone | [...] | MD [address] | [address], | | | | | unspecified, | [address] | [place] [address] | | | | | without | [place], | [place], | | | | | complication | [place] [address] | [place] [address] | | | | | s (HCC) | Phone: | Phone: | | | | | Procedures | [phone] | [phone] | | | | | office visit | Fax: | Fax: | | | | | | [phone] | [phone] | +--------+--------+ + + + + Encounter Details +--------+---------+ + + + | Date | Type | Department | Care Team | Description | +--------+---------+ + + + | 04/06/ | Office | [facility] | Manny Puentes MD | Irritable bowel | | 2018 | Visit | GASTROENTEROLOGY | [address], [place] | syndrome with both | | | | [address] [place] | [address] [place], [place] | constipation and | | | | [address] [place], [place] | [address] | diarrhea (Primary | | | | [address] | | Dx) | | | | [phone] | | | +--------+---------+ + + + [...] kg (287 lb 14.7 oz) | B CT 43.78 kg/m Physical Exam Constitutional: She is [...]
--- OUTSIDE RECORDS SUMMARY | ~2019-04-10 | XMS | Encounter Summary ---
Demographics + + + | Address | [address] | | | [place] [address] | + + + | Home Phone | | + + + | Preferred Language | Unknown | + + + | Marital Status | | + + + | Gnosticism Affiliation | 1061 | + + + | Race | Unknown | + + + | Ethnic Group | Unknown | + + + Author + + + | Author | [facility] | | | and [place] | + + + | Organization | [facility] | | | [...] Team Providers + +------+ + | Care Refinery Operator Vapor Recovery Unit Name | Role | Phone | + +------+ + | Renaldo Nolasco MD | PCP | | + +------+ + Reason for Visit + + + | Reason | Comments | + + + | Diarrhea | Begin budesonide | + + + Encounter Details +--------+ + + + + | Date | Type | Department | Care Team | Description | +--------+ + + + + | 06/18/ | Telephone | [facility] | Manny Puentes MD | Diarrhea (Begin | | 2019 | | GASTROENTEROLOGY | [address], [place] | budesonide) | | | | [address] [place] | [address] [place], [place] | | | | | [address] [place], [place] | [address] | | | | | [address] | | | | | | [phone] | | | +--------+ + + + [...]
--- OUTSIDE RECORDS SUMMARY | ~2019-04-10 | XMS | Encounter Summary ---
Demographics + + + | Address | [address] | | | [place] [address] | + + + | Home Phone | | + + + | Preferred Language | Unknown | + + + | Marital Status | | + + + | Taoism Affiliation | 1061 | + + + | Race | Unknown | + + + | Ethnic Group | Unknown | + + + Author + + + | Author | [facility] | | | and [place] | + + + | Organization | [facility] | | [...] Team Providers + +------+ + | Care Collector Name | Role | Phone | + [...] | | | | | [address] | [place], [place] | | | | | [place], [place] | [address] | | | | | [address] | [phone] | | | | | [phone] | | | +--------+ + + + [...] [address] | | eral | Antecubital; [id number] | Dalia Saunders RN | Dalia Saunders [...]
--- OUTSIDE RECORDS SUMMARY | ~2019-04-10 | XMS | Encounter Summary ---
Demographics + + + | Address | [address] | | | [place] [address] | + + + | Home Phone | | + + + | Preferred Language | Unknown | + + + | Marital Status | | + + + | Episcopalian Affiliation | 1061 | + + + | Race | Unknown | + + + | Ethnic Group | Unknown | + + + Author + + + | Author | [facility] | | | and [place] | + + + | Organization | [facility] | | | [...] Team Providers + +------+ + | Care Senior Software Manager Name | Role | Phone | + +------+ + PCP | Unavailable | + +------+ + Encounter Details +--------+ + + + + | Date | Type | Department | Care Team | Description | +--------+ + + + + | 03/05/ | Hospital | [facility] | Manny Puentes MD | | | 2005 - | Encounter | MED CTR MED ONC | [address] | | | | | [address] | [address] [place] | | | 03/07/ | | [place] [address] | [address] | | | 2005 | | [phone] | | | +--------+ + + + [...]
--- OUTSIDE RECORDS SUMMARY | ~2019-04-10 | XMS | Encounter Summary ---
Demographics + + + | Address | [address] | | | [place] [address] | + + + | Home Phone | | + + + | Preferred Language | Unknown | + + + | Marital Status | | + + + | Jewish Affiliation | 1061 | + + + | Race | Unknown | + + + | Ethnic Group | Unknown | + + + Author + + + | Author | [facility] | | | and [place] | + + + | Organization | [facility] | | | [...] Team Providers + +------+ + | Care Electrical Cad Designer Name | Role | Phone | + [...] [place] | | | | | | [address] | | | | | | [phone] | | | +--------+ + + + [...]
--- OUTSIDE RECORDS SUMMARY | ~2019-04-10 | XMS | Encounter Summary ---
Demographics + + + | Address | [address] | | | [place] [address] | + + + | Home Phone | | + + + | Preferred Language | Unknown | + + + | Marital Status | | + + + | Islam Affiliation | 1061 | + + + | Race | Unknown | + + + | Ethnic Group | Unknown | + + + Author + + + | Author | [facility] | | | and [place] | + + + | Organization | [facility] | | [...] Team Providers + +------+ + | Care Director Operating Room Name | Role | Phone | + +------+ + | Jony Shi MD | PCP | | + +------+ + Encounter Details +--------+---------+ + + + | Date | Type | Department | Care Team | Description | +--------+---------+ + + + | 04/23/ | Surgery | [facility] | Manny Puentes MD | EGD | | 2017 | | MED CTR MP INTRA OP | [address] [place] | | | | | [address] | [address] [place] | | | | | [place] | [address] | | | | | [address] | | | | | | [phone] | | | +--------+---------+ + + + [...] 0 | | | | (VITAMIN D2) [address] | mouth Once a week. | | [...] adult | | | | | | ([facility]) (Z68.41), | | | | | | [...] adult | | | | | | ([facility]) (Z68.41), | | | | | | [...] + + | [address] [facility] | [address] | [place] | [phone] | | [facility] | | [address] | | | - LABORATORY | | [...] | | | Aeromonas, Plesiomonas, | | [facility] | | | | E. coli O157 or | | MEDICAL | | | | Yersinia isolated. | | CENTER - | | | | | | LABORATORY | | + + + + + + | Culture | 2+ Usual FloraComment: | | [facility] | | | | Consistent with usual | | [facility] | | | | enteric rajat. | [...] ST. | [address] | [place] | [phone] | | [facility] | | [address] | | | - LABORATORY | | [...] | [address] | [place] | [phone] | | [facility] | | [address] | | | - LABORATORY | | [...] | | | | | | | [id number] | | | | | | Source [...] Performed: | | | | | | [facility] | | | | | | [facility], [facility][note 2] W | | | | | | [address] [place] [address] | | | | + + + [...] [facility] | [address] | [place] [address] | [phone] | + + + + + Lactoferrin, Fecal, Qual (04/23/2017 12:31 PM PST) + + + + + + | Component | Value | Ref Range | Performed | Pathologist | | | | | At | Signature | + + + + + + | Lactoferrin | Negative | Negative | [facility] | | | , Qual | | | [facility] | [...] | [address] | [place] | [phone] | | [facility] | | [address] | | | - LABORATORY | | [...] | Negative for toxigenic | | [facility] | | | GDH Antigen | Clostridium difficile | | MEDICAL | | | | | | CENTER - | | | | | | LABORATORY | | + + + + + + | C. Diff | Negative | Negative | [facility] | | | Toxin A/B | | | [facility] | | | EIA | | | [...] + + + + + | [facility] | [address] | [place] | [phone] | | [facility] | | [address] | | | - LABORATORY | | [...] | | | dium | | | [facility] | | | Antigen | | | [...] | [address] | [place] | [phone] | | [facility] | | [address] | | | - LABORATORY | | [...] | | | Antigen, | | | [facility] | | | Stool | | | [...] | [address] | [place] | [phone] | | [facility] | | [address] | | | - LABORATORY | | [...] | r pylori Ag | | | [facility] | | | | | | MEDICAL [...] | [address] | [place] | [phone] | | [facility] | | [address] | | | - LABORATORY | | | | + + + + + EGD (04/23/2017 11:59 AM PST) + + | Specimen | + + | | + + + + -+ | Narrative | Performed At | + + -+ | | [facility] | | GastroenterologyPatient Name: Vanesa PrescottProcedure Date: 04/23/2017 | [facility] | | 11:59 AMMRN: [id number] #: [id number] of : | | | 1950Admit Type: AmbulatoryAge: 66Room: [facility] 01Gender: FemaleNote | | | Status: FinalizedAttending MD: Manny Puentes , [facility]cedure: | | | Upper GI endoscopyIndications: Esophageal reflux, For | | | therapy of esophageal reflux, | | | DiarrheaProviders: Manny Puentes MD, Joan LMartha | | | KRISTINE Prabhakar, Negar Ruiz, | | | Music Researcher, Romario Herzog MD (Anesthesia | | | [...] the anesthesiologist and | | | the health type technician in the endoscopy suite. Mental Status [...] | | 12:14:43 PMScope Out: 12:21:39 PM [facility] | | | [place], [address] [place] [address] | | | instructions were provided to [...] |Scope Out: 12:21:39 PM | | | [facility], [address] , [place], [place] | | | [address] | | + + -+ + +---------+ [...] 04/23/2017 | [facility] | | 11:58 AMMRN: [id number] #: [id number] of : | | | 1950Admit Type: AmbulatoryAge: 66Room: [facility] 01Gender: FemaleNote | | | Status: FinalizedAttending MD: Manny Puentes , [facility]rocedure: | | | ColonoscopyIndications: Clinically significant diarrhea | | | of unexplained originProviders: Manny Puentes MD, | | | Joan Prabhakar RN, [facility] | | | Jack, Music Researcher, Romario Herzog MD (Anesthesia Staff)Referring | | [...] physician, the nurse, the anesthesiologist and the health type technician. | | | Prophylactic Antibiotics: The [...] PMScope Out: 12:39:44 PM | | | [facility], [address] [place] [address] | | | [address] | | | - Continue present medications. [...] |Scope Out: 12:39:44 PM | | | [facility], [address], [place] | | | [address] | | + + -+ + +---------+ [...] | mucosa, negative for specific diagnostic abnormality. JVR:[facility]:C2NR | | | GROSS DESCRIPTION: The specimen is received in three parts. A. The | | | specimen is labeled "Vanesa Prescott Denise" and designated "duodenal bx" | | | on the requisition. Received in formalin are six pink-stoddard colored | | | tissue fragments, 0.25-0.4 cm, all into (A1). B. The specimen is | | | labeled "Vanesa Prescott" and designated "right colon bx" on the [...] processing and slide preparation were performed by [employer] | | | [place], [address] [facility] [address], [place] [address] | | | (Entry Level Lab Technician: Doug Lovelace M.D. CLIA#: [id number]). | | | Professional interpretation was performed by [employer], | | | [facility], [address] [facility] | | | [place] [address] (Entry Level Lab Technician: Doug Lovelace M.D.; CLIA#: | | | [id number]). Diagnostician: Doug Lovelace MD Pathologist | | [...] PRN, Nausea, Vomiting, Starting | | | 11/29/17 at 1308, | | | Recovery/Phase I | | + +---+ | | | + +---+ documented in this encounter
--- OUTSIDE RECORDS SUMMARY | ~2019-04-10 | XMS | Encounter Summary ---
Demographics + + + | Address | [address] | | | [place] [address] | + + + | Home Phone | | + + + | Preferred Language | Unknown | + + + | Marital Status | | + + + | Uatsdin Affiliation | 1061 | + + + | Race | Unknown | + + + | Ethnic Group | Unknown | + + + Author + + + | Author | [facility] | | | and [place] | + + + | Organization | [facility] | | | [...] Team Providers + +------+ + | Care Acquisition Lead Name | Role | Phone | + +------+ + | Jony Shi MD | PCP | | + +------+ + Encounter Details +--------+ + + + + | Date | Type | Department | Care Team | Description | +--------+ + + + + | 10/07/ | [facility] | [facility] | Jony Shi | Raynaud's syndrome | | 2013 | Encounter | MED CTR ULTRASOUND | [address] | (Primary Dx) | | | | [address] [place] | [address] | | | | | [place] | [place] | | | | | [address] | [address] | | | | | [phone] | [phone] | | | | | | | [...] | | CONSISTENT WITH SOME ARTERIAL DISEASE. [facility] Greater | | | than 1.4: [...] OF 0.85, CONSISTENT WITH | | SOMEARTERIAL DISEASE.[facility] MedicineGreater than 1.4: Calcification/vessel hardening, | | [...] SOME | |ARTERIAL DISEASE. | | | |[facility] | |Greater than 1.4: Calcification/vessel hardening, [...] + | MISCELLANEOUS LAB | | | [phone] | + +---------+ + + | MISCELANIOUS LAB | | | [phone] | + +---------+ + + documented in this encounter Visit Diagnoses + + | Diagnosis | + + | Raynaud's syndrome - Primary | + + documented in this encounter"
--- OUTSIDE RECORDS SUMMARY | ~2019-04-10 | XMS | Encounter Summary ---
Demographics + + + | Address | [address] | | | [place] [address] | + + + | Home Phone | | + + + | Preferred Language | Unknown | + + + | Marital Status | | + + + | Moravian Affiliation | 1061 | + + + | Race | Unknown | + + + | Ethnic Group | Unknown | + + + Author + + + | Author | [facility] | | | and [place] | + + + | Organization | [facility] | | | and [...] Team Providers + +------+ + | Care Machine Zipper Trimmer Name | Role | Phone | + [...] 2019 | | GASTROENTEROLOGY | [address], [place] | | | | | [address] [place] | [address] [place], [place] | | | | | [address] [place], [place] | [address] | | | | | [address] | | | | | | [phone] | | | +--------+ + + + [...]
--- OUTSIDE RECORDS SUMMARY | ~2019-04-10 | XMS | Encounter Summary ---
Demographics + + + | Address | [address] | | | [place] [address] | + + + | Home Phone | | + + + | Preferred Language | Unknown | + + + | Marital Status | | + + + | Latter Day Affiliation | 1061 | + + + [...] Team Providers + +------+ + | Care Welder Machine Operator Name | Role | Phone [...] 2019 | | GASTROENTEROLOGY | [address], [place] | budesonide) | | | | [address] [place] | [address] [place], [place] | | | | | [address] [place], [place] | [address] | | | | | [address] | | | | | | [phone] | | | +--------+ + + + [...]
--- OUTSIDE RECORDS SUMMARY | ~2019-04-10 | XMS | Encounter Summary ---
Demographics + + + | Address | [address] | | | [place] [address] | + + + | Home Phone | | + + + | Preferred Language | Unknown | + + + | Marital Status | | + + + | Gnosticism Affiliation | 1061 | + + + | Race | Unknown | + + + | Ethnic Group | Unknown | + + + Author + + + | Author | [facility] | | | and [place] | + + + | Organization | [facility] | | | [...] Team Providers + +------+ + | Care Weather Analyst Name | Role | Phone | + [...] [place] | | | | | | [address] | | | | | | [phone] | | | +--------+ + + + [...]
--- OUTSIDE RECORDS SUMMARY | ~2019-04-10 | XMS | Encounter Summary ---
Demographics + + + | Address | [address] | | | [place] [address] | + + + | Home Phone | | + + + | Preferred Language | Unknown | + + + | Marital Status | | + + + | Scientology Affiliation | 1061 | + + + [...] Team Providers + +------+ + | Care District Supervisor Name | Role | Phone | + [...] [place] | | | | | | [address] | | | | | | [phone] | | | +--------+ + + + [...]
--- OUTSIDE RECORDS SUMMARY | ~2019-04-10 | XMS | Encounter Summary ---
Demographics + + + | Address | [address] | | | [place] [address] | + + + | Home Phone | | + + + | Preferred Language | Unknown | + + + | Marital Status | | + + + | Muslim Affiliation | 1061 | + + + | Race | Unknown | + + + | Ethnic Group | Unknown | + + + Author + + + | Author | [facility] | | | and [place] | + + + | Organization | [facility] | | | [...] Team Providers + +------+ + | Care Receiver Name | Role | Phone | + +------+ + | Renaldo Nolasco MD | PCP | | + +------+ + Reason for Visit + + + | Reason | Comments | + + + | Medication Follow-up | | + + + Encounter Details +--------+ + + + + | Date | Type | Department | Care Team | Description | +--------+ + + + + | 07/29/ | Tele[facility] | [facility] | Manny Puentes MD | Medication Follow-up | | 2019 | | GASTROENTEROLOGY | [address], [place] | | | | | [address] [place] | [address] [place], [place] | | | | | [address] [place], [place] | [address] | | | | | [address] | | | | | | [phone] | | | +--------+ + + + [...]
--- OUTSIDE RECORDS SUMMARY | ~2019-04-10 | XMS | Encounter Summary ---
Demographics + + + | Address | [address] | | | [place] [address] | + + + | Home Phone | | + + + | Preferred Language | Unknown | + + + | Marital Status | | + + + | Anabaptist Affiliation | 1061 | + + + | Race | Unknown | + + + | Ethnic Group | Unknown | + + + Author + + + | Author | [facility] | | | and [place] | + + + | Organization | [facility] | | | and [...] Providers + +------+ + | Care College Sports Coach Name | Role | Phone | + +------+ + | Jony Shi MD | PCP | | + +------+ + Reason for Visit +---------+ + | Reason | Comments | +---------+ + | Results | | +---------+ + Encounter Details +--------+ + + + + | Date | Type | Department | Care Team | Description | +--------+ + + + + | 04/28/ | Telephone | [facility] [place] | Manny Puentes MD | Results | | 2017 | | GASTROENTEROLOGY | [address], [place] | | | | | [address] [place] | [address] [place], [place] | | | | | [address] [place], [place] | [address] | | | | | [address] | | | | | | [phone] | | | +--------+ + + + [...]
--- OUTSIDE RECORDS SUMMARY | ~2019-04-10 | XMS | Encounter Summary ---
Demographics + + + | Address | [address] | | | [place] [address] | + + + | Home Phone [...] Team Providers + +------+ + | Care Greenhouse Transplanter Name | Role | Phone | + [...] + + | 07/29/ | Tele[facility] | [facility] | Manny Pu[facility] MD | Medication Follow-up | | 2019 | | GASTROENTEROLOGY | [address], [place] | | | | | [address] [place] | [address] [place], [place] | | | | | [address] [place], [place] | [address] | | | | | [address] | | | | | | [phone] | | | +--------+ + + + [...]
--- OUTSIDE RECORDS SUMMARY | ~2019-04-10 | XMS | Encounter Summary ---
Demographics + + + | Address | [address] | | | [place] [address] | + + + | Home Phone | | + + + | Preferred Language | Unknown | + + + | Marital Status | | + + + | Jehovah'S Witness Affiliation | 1061 | + + + | Race | Unknown | + + + | Ethnic Group | Unknown | + + + Author + + + | Author | [facility] | | | and [place] | + + + | Organization | [facility] | | [...] Team Providers + +------+ + | Care Hand Brush Filler Name | Role | Phone | + +------+ + | Renaldo Nolasco MD | PCP | | + +------+ + Reason for Visit +--------+ + | Reason | Comments | +--------+ + | Other | f/u call per Dr Puentes | +--------+ + Encounter Details +--------+ + + + + | Date | Type | Department | Care Team | Description | +--------+ + + + + | 04/29/ | [facility] | [facility] | Manny Pu[facility] | Other (f/u call per | | 2018 | | GASTROENTEROLOGY | [address], [place] | Dr Puentes) | | | | [address] [place] | [address] [place], [place] | | | | | [address] [place], [place] | [address] | | | | | [address] | | | | | | [phone] | | | +--------+ + + + [...]
--- OUTSIDE RECORDS SUMMARY | ~2019-04-10 | XMS | Encounter Summary ---
Demographics + + + | Address | [address] | | | [place] [address] | + + + | Home Phone | | + + + | Preferred Language | Unknown | + + + | Marital Status | | + + + | Church Affiliation | 1061 | + + + [...] Team Providers + +------+ + | Care Software Development Specialist Name | Role | Phone | + +------+ + PCP | Unavailable | + +------+ + Encounter Details +--------+ + + + + | Date | Type | Department | Care Team | Description | +--------+ + + + + | 03/05/ | Hospital | [facility] | Manny Puentes MD | | | 2005 - | Encounter | MED CTR MED ONC | [address] | | | | | [address] | [address] [place] | | | 03/07/ | | [place] [address] | [address] | | | 2005 | | [phone] | | | +--------+ + + + [...]
--- OUTSIDE RECORDS SUMMARY | ~2019-04-10 | XMS | Encounter Summary ---
Demographics + + + | Address | [address] | | | [place] [address] | + + + | Home Phone | | + + + | Preferred Language | Unknown | + + + | Marital Status | | + + + | Caodaism Affiliation | 1061 | + + + | Race | Unknown | + + + | Ethnic Group | Unknown | + + + Author + + + | Author | [facility] | | | and [place] | + + + | Organization | [facility] | | [...] Team Providers + +------+ + | Care Face Burler Name | Role | Phone | + [...] + + | 04/29/ | Tele[facility] | [facility] | Manny Puentes MD | Other (f/u call per | | 2018 | | GASTROENTEROLOGY | [address] [place] | Dr Puentes) | | | | [address] [place] | [address] [place], [place] | | | | | [address] [place], [place] | [address] | | | | | [address] | | | | | | [phone] | | | +--------+ + + + [...]
--- OUTSIDE RECORDS SUMMARY | ~2019-04-10 | XMS | Encounter Summary ---
Demographics + + + | Address | [address] | | | [place] [address] | + + + | Home Phone | | + + + | Preferred Language | Unknown | + + + | Marital Status | | + + + | Buddhist Affiliation | 1061 | + + + | Race | Unknown | + + + | Ethnic Group | Unknown | + + + Author + + + | Author | [facility] | | | and [place] | + + + | Organization | [facility] | | | [...] Team Providers + +------+ + | Care National Service Officer Name | Role | Phone | [...] 2017 | | GASTROENTEROLOGY | [address], [place] | | | | | [address] [place] | [address] [place], [place] | | | | | [address] [place], [place] | [address] | | | | | [address] | | | | | | [phone] | | | +--------+ + + + [...]
--- OUTSIDE RECORDS SUMMARY | ~2019-04-10 | XMS | Encounter Summary ---
Demographics + + + | Address | [address] | | | [place] [address] | + + + | Home Phone | | + + + | Preferred Language | Unknown | + + + | Marital Status | | + + + | Congregation Affiliation | 1061 | + + + | Race | Unknown | + + + | Ethnic Group | Unknown | + + + Author + + + | Author | [facility] | | | and [place] | + + + | Organization | [facility] | | | [...] Team Providers + +------+ + | Care Roll On Man Name | Role | Phone | [...] | | [address] | [place] [address] | | | | | [address] | | | | | | [phone] | | | +--------+ + + + [...]
--- OUTSIDE RECORDS SUMMARY | ~2019-04-10 | XMS | Encounter Summary ---
Demographics + + + | Address | [address] | | | [place] [address] | + + + | Home Phone | | + + + | Preferred Language | Unknown | + + + | Marital Status | | + + + | Zoroastrian Affiliation | 1061 | + + + [...] Team Providers + +------+ + | Care Metal Bonding Assembler Name | Role | Phone | + +------+ + | Jony Shi MD | PCP | | + +------+ + Encounter Details +--------+ + + + + | Date | Type | Department | Care Team | Description | +--------+ + + + + | 04/23/ | Hospital | [facility] | Manny Puentes MD | Change in bowel | | 2017 | Encounter | MED CTR MP INTRA OP | [address], [place] | habits (Primary Dx); | | | | [address] | [address] [place], [place] | Gastroesophageal | | | | [place], [place] | [address] | reflux disease with | | | | [address] | | esophagitis; | | | | [phone] | | Functional diarrhea | +--------+ + [...] 0 | | | | (VITAMIN D2) [address] | mouth Once a week. | | [...] adult | | | | | | (FORMERLY [facility]) (Z68.41), | | | | | | [...] adult | | | | | | (FORMERLY [facility]) (Z68.41), | | | | | | [...] [address] | [place] | [phone] | | [facility] | | [address] | | | - LABORATORY | | [...] [address] | [place] | [phone] | | [facility] | | [address] | | | - LABORATORY | | [...] [address] | [place] | [phone] | | [facility] | | [address] | | | - LABORATORY | | [...] | | | | | | | [id number] | | | | | | Source [...] Performed: | | | | | | [facility] | | | | | | [facility], [address] | | | | | | [place] [address] | | | | + + + [...] | [address] | [place] [address] | [phone] | + + + + + Lactoferrin, [...] [address] | [place] | [phone] | | [facility] | | [address] | | | - LABORATORY | | [...] [address] | [place] | [phone] | | [facility] | | [address] | | | - LABORATORY | | [...] [address] | [place] | [phone] | | [facility] | | [address] | | | - LABORATORY | | [...] | | Antigen, | | | [facility] | | | Stool | | | [...] [address] | [place] | [phone] | | [facility] | | [address] | | | - LABORATORY | | [...] r pylori Ag | | | [facility] | | | | | | MEDICAL [...] [address] | [place] | [phone] | | [facility] | | [address] | | | - LABORATORY | | | | + + + + + EGD (04/23/2017 11:59 AM PST) + + | Specimen | + + | | + + + + -+ | Narrative | Performed At | + + -+ | | [facility] | | GastroenterologyPatient Name: Vanesa Loaiza Date: 04/23/2017 | [facility] | | 11:59 AMMRN: [id number] #: [id number] of : | | | 1950Admit Type: AmbulatoryAge: 66[facility] 01Gender: FemaleNote | | | Status: FinalizedAttending MD: Manny Puentes , MDProcedure: | | | Upper GI endoscopyIndications: Esophageal reflux, For | | | therapy of esophageal reflux, | | | DiarrheaProviders: Manny Puentes MD, Joan Alvarado | | | KRISTINE Prabhakar, Negar Ruiz, | | | Economics Teacher, Romario Herzog MD (Anesthesia | | | [...] the anesthesiologist and | | | the nuclear fuel processing technician in the endoscopy suite. Mental Status [...] | | 12:14:43 PMScope Out: 12:21:39 PM [facility] | | | [place], [address] [place] [address] | | | instructions were provided to [...] |Scope Out: 12:21:39 PM | | | [facility], [address] [place], [place] | | | [address] | | + + -+ + +---------+ [...] 04/23/2017 | [facility] | | 11:58 AMMRN: [id number] #: [id number] of : | | | 1950Admit Type: AmbulatoryAge: 66Room: [facility] 01Gender: FemaleNote | | | Status: FinalizedAttending MD: Manny Puentes , [facility]rocedure: | | | ColonoscopyIndications: Clinically significant diarrhea | | | of unexplained originProviders: Manny Puentes MD, | | | Joan Prabhakar RN, Cassi | | | Jack, Economics Teacher, Romario Herzog MD (Anesthesia Staff)Referring | | [...] physician, the nurse, the anesthesiologist and the nuclear fuel processing technician. | | | Prophylactic Antibiotics: The [...] PMScope Out: 12:39:44 PM | | | [facility], [address] [place], [place] | | | [address] | | | - Continue present medications. [...] |Scope Out: 12:39:44 PM | | | [facility], [address] [facility] [place], [place] | | | [address] | | + + -+ + +---------+ [...] | mucosa, negative for specific diagnostic abnormality. JVR:[facility]:C2NR | | | GROSS DESCRIPTION: The specimen is received in three parts. A. The | | | specimen is labeled "Vanesa Prescott" and designated "duodenal bx" | | | on the requisition. Received in formalin are six pink-stoddard colored | | | tissue fragments, 0.25-0.4 cm, all into (A1). B. The specimen is | | | labeled "Kenyon Vanesa Denise" and designated "right colon bx" on the [...] processing and slide preparation were performed by [employer] | | | [facility], [address], [place] [address] | | | (Inspector Floor: Doug Lovelace M.D. CLIA#: [id number]). | | | Professional interpretation was performed by [employer], | | | [facility], [address] | | | [place] [address] (Inspector Floor: Doug Lovelace M.D.; CLIA#: | | | [id number]). Diagnostician: Doug Lovelace MD Pathologist | | [...]
--- OUTSIDE RECORDS SUMMARY | ~2019-04-10 | XMS | Encounter Summary ---
Demographics + + + | Address | [address] | | | [place] [address] | + + + | Home Phone | | + + + | Preferred Language | Unknown | + + + | Marital Status | | + + + | Yazidi Affiliation | 1061 | + + + [...] Team Providers + +------+ + | Care Automobile Service Advisor Name | Role | Phone | + +------+ + PCP | Unavailable | + +------+ + Encounter Details +--------+ + + + + | Date | Type | Department | Care Team | Description | +--------+ + + + + | 08/02/ | Hospital | [facility] | Manny Puentes MD | | | 2008 | Encounter | MED CTR GENERIC OP | [address] | | | | | CONV DEPT [address] | [address] [place], [place] | | | | | [place], | [address] | | | | | [place] [address] | | | | | | [phone] | | | +--------+ + + + [...]
--- OUTSIDE RECORDS SUMMARY | ~2019-04-10 | XMS | Encounter Summary ---
Demographics + + + | Address | [address] | | | [place] [address] | + + + | Home Phone | | + + + | Preferred Language | Unknown | + + + | Marital Status | | + + + | Rastafari Affiliation | 1061 | + + + | Race | Unknown | + + + | Ethnic Group | Unknown | + + + Author + + + | Author | [facility] | | | and [place] | + + + | Organization | [facility] | | | [...] Team Providers + +------+ + | Care Executive Communications Manager Name | Role | Phone | + +------+ + | Jony Shi MD | PCP | | + +------+ + Encounter Details +--------+---------+ + + + | Date | Type | Department | Care Team | Description | +--------+---------+ + + + | 04/23/ | Surgery | [facility] | Manny Puentes MD | EGD | | 2017 | | MED CTR MP INTRA OP | [address] [place] | | | | | [address] | [address] [place] | | | | | [place] | [address] | | | | | [address] | | | | | | [phone] | | | +--------+---------+ + + + [...] 0 | | | | (VITAMIN D2) [address] | mouth Once a week. | | [...] adult | | | | | | ([facility]) (Z68.41), | | | | | | [...] adult | | | | | | ([facility]) (Z68.41), | | | | | | [...] + | [address] | [address] | [place] | [phone] | | [facility] | | [address] | | | - LABORATORY | | [...] | | | Aeromonas, Plesiomonas, | | [facility] | | | | E. coli O157 or | | MEDICAL | | | | Yersinia isolated. | | CENTER - | | | | | | LABORATORY | | + + + + + + | Culture | 2+ Usual FloraComment: | | [facility] | | | | Consistent with usual | | [facility] | | | | enteric [...] [address] | [place] | [phone] | | [facility] | | [address] | | | - LABORATORY | | [...] [address] | [place] | [phone] | | [facility] | | [address] | | | - LABORATORY | | [...] | | | | | | | [id number] | | | | | | Source [...] Performed: | | | | | | [facility] | | | | | | [facility] W | | | | | | [address] [place] [address] | | | | + + + [...] P[facility] | [address] | [place] [address] | [phone] | + + + + + Lactoferrin, [...] [address] | [place] | [phone] | | [facility] | | [address] | | | - LABORATORY | | [...] [address] | [place] | [phone] | | [facility] | | [address] | | | - LABORATORY | | [...] [address] | [place] | [phone] | | [facility] | | [address] | | | - LABORATORY | | [...] | | | Antigen, | | | [facility] | | | Stool | [...] [address] | [place] | [phone] | | [facility] | | [address] | | | - LABORATORY | | [...] | r pylori Ag | | | [facility] | | | | | | MEDICAL [...] [address] | [place] | [phone] | | [facility] | | [address] | | | - LABORATORY | | | | + + + + + EGD (04/23/2017 11:59 AM PST) + + | Specimen | + + | | + + + + -+ | Narrative | Performed At | + + -+ | | [facility] | | GastroenterologyPatient Name: Vanesa PrescottProcedure Date: 04/23/2017 | [facility] | | 11:59 AMMRN: [id number] #: [id number] of : | | | 1950Admit Type: AmbulatoryAge: 66Room: [facility] 01Gender: FemaleNote | | | Status: FinalizedAttending MD: Manny Puentes , [facility]cedure: | | | Upper GI endoscopyIndications: Esophageal reflux, For | | | therapy of esophageal reflux, | | | DiarrheaProviders: Manny Puentes MD, Joan LMartha | | | KRISTINE Prabhakar, Negar Ruiz, | | | Manager Ent, Romario Herzog MD (Anesthesia | | | [...] the anesthesiologist and | | | the small engine technician in the endoscopy suite. Mental Status [...] | | 12:14:43 PMScope Out: 12:21:39 PM [facility] | | | [place], [address] [place] [address] | | | instructions were provided to [...] |Scope Out: 12:21:39 PM | | | [facility], [address] , [place], [place] | | | [address] | | + + -+ + +---------+ [...] 04/23/2017 | [facility] | | 11:58 AMMRN: [id number] #: [id number] of : | | | 1950Admit Type: AmbulatoryAge: 66Room: [facility] 01Gender: FemaleNote | | | Status: FinalizedAttending MD: Manny Puentes , [facility]rocedure: | | | ColonoscopyIndications: Clinically significant diarrhea | | | of unexplained originProviders: Manny Puentes MD, | | | Joan Prabhakar RN, [facility] | | | Jack, Manager Ent, Romario Herzog MD (Anesthesia Staff)Referring | | [...] physician, the nurse, the anesthesiologist and the small engine technician. | | | Prophylactic Antibiotics: The [...] PMScope Out: 12:39:44 PM | | | [facility], [address] [place] [address] | | | [address] | | | - Continue present medications. [...] |Scope Out: 12:39:44 PM | | | [facility], [address] [place], [place] | | | [address] | | + + -+ + +---------+ [...] | mucosa, negative for specific diagnostic abnormality. JVR:[facility]:C2NR | | | GROSS DESCRIPTION: The specimen [...] processing and slide preparation were performed by [employer] | | | [employer], [address], [place] [address] | | | (Transplant Case Manager: Doug Lovelace M.D. CLIA#: [id number]). | | | Professional interpretation was performed by [employer], | | | [facility], [address] [facility] | | | [place] [address] (Transplant Case Manager: Doug Lovelace M.D.; CLIA#: | | | [id number]). Diagnostician: Doug Lovelace MD Pathologist | | [...]
--- OUTSIDE RECORDS SUMMARY | ~2019-04-10 | XMS | Encounter Summary ---
Demographics + + + | Address | [address] | | | [place] [address] | + + + | Home Phone | | + + + | Preferred Language | Unknown | + + + | Marital Status | | + + + | Orthodoxy Affiliation | 1061 | + + + | Race | Unknown | + + + | Ethnic Group | Unknown | + + + Author + + + | Author | [facility] | | | and [place] | + + + | Organization | [facility] | | | [...] Providers + +------+ + | Care Automobile Repair Service Estimator Name | Role | Phone | + [...] bowel | [place] | [address], | | | | | syndrome | [address] | [address] [address] | | | | | without | [place] | [place], | | | | | diarrhea | [address] | [place] [address] | | | | | Procedures | [place], | Phone: | | | | | Office Visit | [place] | [phone] | | | | | | [address] | Fax: | | | | | | Phone: | [phone] | | | | | | [phone] | | | | | | | Fax: | | | | | | | [phone] | | +--------+--------+ + + + + Encounter Details +--------+---------+ + + + | Date | Type | Department | Care Team | Description | +--------+---------+ + + + | 03/24/ | Office | [facility] | Manny Puentes MD | Gastroesophageal | | 2017 | Visit | GASTROENTEROLOGY | [address], [place] | reflux disease, | | | | [address] [place] | [address] [place], [place] | esophagitis presence | | | | [address] [place], [place] | [address] | not specified | | | | [address] | | (Primary Dx); Change | | | | [phone] | | in bowel habits; | | | | | | BMI 40.0-44.9, adult | | | | | | ([facility]); History of | | | | | [...]
--- OUTSIDE RECORDS SUMMARY | 2019-04-10 08:16 | XMS ---
PreManage Notification: JESUS JUAREZ Security Machine Deicer Element Winder Events No recent Security Events currently on file CRITERIA MET - [facility] [place] CARE PROVIDERS DANIEL CHAVIRA Internal Medicine 01/12/2018-Current PHONE: Unknown Jony Shi MD Primary Care Current PHONE: Unknown orbritany Cardenas or Fire Prevention Captain Current PHONE: Unknown Kaycee SHI Current PHONE: Unknown Chandrika has no Care Guidelines for this patient. Care History Medical/Surgical 01/12/2018 [facility] [place] - Patient is currently established with [facility]. If patient is seen in the ED during business hours. Please contact [facility] at [facility]. Care Recommendation: This patient has had [...] providing care. E.D. VISIT COUNT (12 MO.) 2 [facility]. TOTAL 2 NOTE: Visits indicate total known visits. ED/UCC VISIT TRACKING (12 MO.) 04/10/2019 08:14 [facility] [place] TYPE: Emergency COMPLAINT: - LEFT SHOULDER PAIN, NON INJ 11/23/2018 00:48 [facility] [place] TYPE: Emergency COMPLAINT: - SHOULDER AND BACK PAIN DIAGNOSES: - Personal history of nicotine dependence - Essential (primary) hypertension - Other nonmedicinal substance allergy status - Allergy status to other antibiotic agents status - Acquired absence of both cervix and uterus - retirement (current) use of aspirin - retirement (current) use of oral hypoglycemic drugs - Other longterm (current) drug therapy - Hyperlipidemia, unspecified - Acquired absence of other specified parts of digestive tract - Allergy status to oth drug/meds/biol subst status - Other chest pain - Allergy status to sulfonamides status - Allergy status to narcotic agent status - 1 Type 2 diabetes mellitus without complications - Chest pain, unspecified INPATIENT VISIT TRACKING (12 MO.) No inpatient visits to display in this time frame [id number]
[2019-04-10] MEDS ORDERED: ULTRAM50 MG PO (10:22)
== END 2019-04-10 10:31 | disposition home or self-care (01) ==
LOC: ED 08:13
DX: M25.512 Pain in left shoulder (principal); I10 Essential (primary) hypertension; K21.9 Gastro-esophageal reflux disease without esophagitis; E78.5 Hyperlipidemia, unspecified; E11.9 Type 2 diabetes mellitus without complications; Z87.891 Personal history of nicotine dependence; Z88.8 Allergy status to other drugs, medicaments and biological substances; Z88.1 Allergy status to other antibiotic agents; Z88.5 Allergy status to narcotic agent; Z91.048 Other nonmedicinal substance allergy status; Z79.899 Other long term (current) drug therapy
CPT/HCPCS: 73030; 99283-25

== ENCOUNTER 2020-04-09 14:44 | Emergency (ER) | payer MEDICARE, OTHER ==
[~2020-04-09] VITALS: Ht 172.7 cm; Wt 125.2 kg
[~2020-04-09 14:44] MED LIST changes: +ULTRAM50 MG PO; +VITAMIN D3125 MC1 PO; -VITAMIN D3400 UNI1 PO
[2020-04-09] MEDS ORDERED: JANUVIA50 MG PO (16:29)
[2020-04-09] MEDS ORDERED: BUDESONIDE EC3 MG PO (16:31)
[2020-04-09] MEDS ORDERED: DICYCLOMINE HCL20 MG PO (16:32)
[2020-04-09] MEDS ORDERED: FLUTICASONE PRO16 GM NAS (16:32)
[2020-04-09] MEDS ORDERED: NORCO 5-325 TA1 EACH PO (20:12)
== END 2020-04-09 20:48 | disposition home or self-care (01) ==
LOC: ED 14:44 → CCU 19:10 → ED 20:48
DX: U07.1 COVID-19 (principal); I10 Essential (primary) hypertension; K21.9 Gastro-esophageal reflux disease without esophagitis; E03.9 Hypothyroidism, unspecified; E78.5 Hyperlipidemia, unspecified; E11.9 Type 2 diabetes mellitus without complications; Z87.891 Personal history of nicotine dependence; Z88.8 Allergy status to other drugs, medicaments and biological substances; Z88.2 Allergy status to sulfonamides; Z88.1 Allergy status to other antibiotic agents; Z88.5 Allergy status to narcotic agent; Z91.048 Other nonmedicinal substance allergy status; Z79.899 Other long term (current) drug therapy
CPT/HCPCS: 71045; 80053; 85025; 99284-25

== ENCOUNTER 2020-04-11 13:11 | Inpatient (IN) | payer MEDICARE, OTHER ==
[~2020-04-11] VITALS: Ht 172.7 cm; Wt 122.6 kg
[~2020-04-11 13:11] MED LIST changes: +BUDESONIDE EC3 MG PO; +DICYCLOMINE HCL20 MG PO; +FLUTICASONE PRO16 GM NAS; +JANUVIA50 MG PO
--- OUTSIDE RECORDS SUMMARY | 2020-04-11 13:14 | XMS ---
PreManage Notification: JESUS JUAREZ Security Abstract Checker Events No recent Security Events currently on file CRITERIA MET - [facility] - 2 Visits in 30 Days CARE PROVIDERS DANIEL CHAVIRA Internal Medicine 01/12/2018-Current PHONE: Unknown Chandrika has no Care Guidelines for this patient. Care History Medical/Surgical 01/12/2018 [facility] - Patient is currently established with [facility]. If patient is seen in the ED during business hours. Please contact CHWs at [facility]. Care Recommendation: This patient has had 5 [...] care. E.D. VISIT COUNT (12 MO.) 2 [facility] TOTAL 2 NOTE: Visits indicate total known visits. ED/UCC VISIT TRACKING (12 MO.) 04/11/2020 13:11 [facility] [place] TYPE: Emergency COMPLAINT: - FEVER 04/09/2020 14:46 [facility] [place] TYPE: Emergency COMPLAINT: - FLU SYMPTOMS INPATIENT VISIT TRACKING (12 MO.) 04/09/2020 19:10 [facility] [place] TYPE: Critical Care COMPLAINT: - FLU SYMPTOMS [email or web address]
[2020-04-11] MEDS ORDERED: AZITHROMYCIN250 MG PO (13:34)
--- NOTE | 2020-04-11 17:49 | NUR ---
69 year old FEMALE PATIENT ADMITTED TO CCU FROM ED [facility] WITH DX OF RESP FAILURE R/T COVID 19. STATES SHE HAS BEEN HAVIN G SINUS PROBLEMS FOR PAST WEEK. WAS SEEN IN CLINIC ON FRIDAY THEN WENT TO ED ON THIS LAST FRIDAY, WHILE IN ED TH POSITIVE RESULTS OF COVID COAME BACK. HAS BEEN ON ZITHROMAS SINCE THIS LAST FRIDAY. ADMISSION PROCESS STARTED.
--- NOTE | 2020-04-11 18:45 | NUR ---
REMDESIVIR HUNG AT 1830. PO DECADRON GIVEN O2 AT [address]
--- NOTE | 2020-04-11 18:57 | NUR ---
RESTFUL, NO FUTHER CHANGES. REPORT TO NEXT SHIFT.
--- NOTE | 2020-04-11 19:30 | NUR ---
RECEIVED REPORT AT 1900, PT IN ROOM WATCHING TV. NO IMMEDIATE CONCERNS NOTED.
--- NOTE | 2020-04-11 20:30 | NUR ---
RR IN THE UPPER 20'-LOW 30'S. UPPER LOBES ARE CLEAR, ALL OTHER LOBES HAVE CRACKLES PRESENT. PT STATED THAT SHE HAS SOB WITH ACTIVITY ONLY. PT IS USING BEDSIDE COMMODE. PT SO FAR IS ON 2L O2 NC AND O2 SATS HAVE REMAINED >90%. PT SO FAR IS AFEBRILE, BP IS WDL, HR IS WDL UNLESS PT IS STANDING AND WALKING. AT THAT POINT PT BECOMES TACHY IN THE LOW 100'S. ABD SOUNDS ARE PREENT, NO PERIPHERAL EDEMA NOTED, PEDIS AND RADIAL PULSES +2, PT HAS REDNESS ON ALL TOES AND SOME FINGERS PRESENT. WILL CONTINUE TO MONITOR. PT WILL PRONE TONIGHT TO THE BEST OF HER ABILITY.
--- NOTE | 2020-04-11 22:26 | NUR ---
ASSISTED PT TO BEDSIDE COMMODE. HR STAYED UNDER A 100 WHILE UP AND O2 SATS STAYED ABOVE 90% ON 2L O2. PT BACK IN BED. NO NEW CONCERNS NOTED. URINE OUTPUT IS STILL ADEQUATE.
--- NOTE | 2020-04-12 00:15 | NUR ---
PT SO FAR STILL AFEBRILE. PT REMAINS ON 2L O2 NC AND IS DOING WELL ON IT. OTHER V/S ARE WDL OVERALL WHEN PT IS NOT MOVING. URINE OUTPUT IS ADEQUATE STILL, UPPER LOBES ARE CLEAR, ALL OTHER LOBES HAVE CRACKLES PRESENT. NO NEW ISSUES WERE NOTED WITH SECOND ASSESSMENT OVERALL. WILL CONTINUE TO MONITOR.
--- NOTE | 2020-04-12 02:13 | NUR ---
PT IS SLEEPING AT THIS TIME. RR IN THE 20'S, OTHER V/S ARE WDL. NO NEW CONCERNS NOTED.
--- NOTE | 2020-04-12 04:30 | NUR ---
PT WAS ABLE TO SLEEP SOME. WHEN IN BED, V/S ARE WDL ON 2L O2 NC. WHILE STANDING PT DESATS TO THE MID 80'S ON 2L O2 NC. HR HAS STAYED BELOW 100. IT DOES TAKE PT SOME TIME TO RECOVER. O2 INCREASED TO 3L FOR A FEW MINUTES, PT NOW BACK ON 2L O2 NC. UPPER LOBES ARE STILL CLEAR, ALL OTHER LOBES STILL HAVE CRACKLES PRESENT. RIGHT FOOT NOW HAS EDEMA PRESENT WHICH PT STATED THAT THIS IS NORMAL FOR HER. ALL TOES ARE MORE RED THAN AT START OF SHIFT. CAP REFILL IS <3SEC. URINE HAS DROPPED SOME SINCE START OF SHIFT. URINE IS ALSO MORE CONCENTRATED IN COLOR BUT STILL SUFFICIENT.
--- NOTE | 2020-04-12 06:22 | NUR ---
PT IS SLEEPING AT THIS TIME. BREAKFAST ORDERED.
--- NOTE | 2020-04-12 07:30 | NUR ---
PATIENT SHIFT REPORT RECIEVED FROM ROLLER HAND RN. PATIENT RESTIING IN BED. PER REPORT PATIENT ON 2L NC AT THIS TIME. PATIENT CALLS APPROPRIATELY. WILL CONTINUE TO CLOSELY MONITOR.
--- NOTE | 2020-04-12 09:30 | NUR ---
PATIENT SHIFT ASSESSMENT COMPLETED. UNABLE TO LISTEN TO BREATH SOUNDS. BOWEL TONES, HEART TONES. PATIENT IS ON 2L NC, PATIENT DOES GET MILDLY SOB WITH EXERTION, BUT RECOVERS QUICKLY. PATIENT ASSISTED UP TO THE CAMMODE AND CHAIR THIS AM. PATIENT TOLERATED WELL. BREAKFAST FINISHED. MEDICATIONS ADMINISTERED. PATIENT DENIES ANY ISSUES AT THIS TIME. REMDESIVIR INFUSING PER ORDERS. CALL LIGHT IN REACH. ADVISED TO CALL WHEN PATIENTS IV PUMP BEAPS. WILL CONTINUE TO CLOSELY MONITOR.
--- NOTE | 2020-04-12 10:50 | NUR ---
Spoke with Vanesa, she lives in town with her spouse. She has a ramp and uses a cane due to past knee surgery. Able to get in and out of her house, but is sob. Plans on dc to home with spouse when dc. May need 02 on dc and will follow up with her when she is nearer to dc.
--- NOTE | 2020-04-12 11:21 | NUR ---
ONELIA MEYERSCY IN WITH PATIENT TO HELP HER IN THE SHOWER. STAFF WILL CALL IF THEY NEED ANY ASSISTANCE. NO OTHER NEEDS AT THIS TIME.
--- NOTE | 2020-04-12 11:34 | NUR ---
PATIENT SHOWERED AND SHAMPOOED WITH SBA. FRESH GOWN AND LINEN GIVEN. PATIENT AMBULATED WITH A CANE WHEN SOB. MOSTLY INDEPENDENT, SET UP WITH ORAL CARE SUPPLIES. CALL LIGHT WITHIN REACH. NO FURTHER NEEDS AT THIS TIME.
--- NOTE | 2020-04-12 13:00 | NUR ---
PATIENT RESTING IN BED. THIS RN IN TO ASSIST PATIENT UP TO HER CHAIR FOR LUNCH. PATIENT TOLERATED WELL. ASSESSMENT REMAINS UNCHANGED AT THIS TIME. PATIENT TRANSFERED TO TELE MONITOR FOR INCREASED INDEPENDENCE. NO OTHER NEEDS AT THIS TIME.
[2020-04-12] MEDS ORDERED: POTASSIUM CHLO20 ME1 PO (14:48)
[2020-04-12] MEDS ORDERED: DICLOFENAC SODI50 MG PO (14:48)
--- NOTE | 2020-04-12 14:57 | NUR ---
I AM UNABLE TO VISIT PT IN PERSON DUE TO PRECAUTIONS. INFORMED KRISTINE RUSS TO LET PT KNOW I CAN VISIT BY PHONE IF DESIRED. ACKNKOWLEDGED AND WILL FOLLOW
--- NOTE | 2020-04-12 15:00 | NUR ---
PATIENT BACK TO BED RESTING ON HER SIDE AT THIS TIME. PATIENT REPORTS SHE IS UNABLE TO LAY ON HER BELLY, BUT IS WILLING TO LAY ON HER SIDES. PATIENT RESTING AT THIS TIME. NO OTHER NEEDS AT THIS TIME. WILL CONTINUE TO CLOSELY MONITOR.
--- NOTE | 2020-04-12 17:27 | NUR ---
PATIENT AMBULATED AND USED RESTROOM WITHOUT ASSISTANCE. PATIENT NOW UP IN CHAIR WAITING FOR DINNER. CALL LIGHT WITHIN REACH. NO FURTHER NEEDS AT THIS TIME
--- NOTE | 2020-04-12 17:30 | NUR ---
THIS RN IN TO SEE PATIENT. DINNER ORDERED. PATIENT UP TO THE CAMMODE AND SITTING IN THE CHAIR WITH THE INTEGRITY ENGINEER'S ASSISTANCE. CALL LIGHT IN REACH. WILL BRING DINNER IN WHEN IT ARRIVES. WILL CONTINUE TO CLOSELY MONITOR.
--- NOTE | 2020-04-12 18:51 | NUR ---
PATIENT SITTING IN THE CHAIR EATING DINNER. PATIENT EDUCATED TO CALL STAFF FOR ASSISTANCE. PATIENT REMAINS ON 2L NC THIS EVENING AND TOELRATING WELL. PATIENT DOES DESAT TO 87 ON 2L WITH ACTIVITY, BUT QUICKLY RECOVERS WHEN SHE IS RESTING. WILL CONTINUE TO CLOSELY MONITOR.
--- NOTE | 2020-04-12 20:00 | NUR ---
SHIFT REPORT RECEIVED FROM KRISTINE DESIR. PT CALLED STATING SHE WAS READY TO GO TO BED. PT AMBULATED FROM CHAIR TO BATHROOM USING HER CANE, APPEARS SLIGHTLY UNSTEADY ON FEET. VOIDED QS. EVENING ADL'S PERFORMED BY PT AND PT AMBULATED TO BED. SHE IS ALERT AND ORIENTED, AFFECT SOMEWHAT FLAT. DENIES PAIN. ASSESSMENT LIMITED DUE TO PAPR PPE, PT DENIES CHEST PAIN AND SOB. OXYGEN AT 3L. HR SINUS RHYTHM PER TELE #9. SKIN GROSSLY INTACT, MILD EDEMA NOTED IN RIGHT FOOT THAT PT STATES IS BASELINE, PULSES STRONG PERIPHERALLY. IV PATENT AND SALINE LOCKED, DRESSING C/D/I. EVENING MEDICATIONS GIVEN AT THIS TIME. PLAN OF CARE DISCUSSED WITH PT. NO FURTHER REQUESTS AT THIS TIME. CALL LIGHT AND BELONGINGS WITHIN REACH.
--- NOTE | 2020-04-12 22:00 | NUR ---
PT RESTING IN BED, NO APPARENT DISTRESS. HR:91 SPO2:97% ON 3L O2 PER TELE #9.
--- NOTE | 2020-04-12 23:45 | NUR ---
PT CALLED TO USE BATHROOM. AMBULATED WITH CANE TO BATHROOM, VOIDED AND RETURNED TO BED. PT REPORTS 4/10 PAIN IN RIGHT KNEE, PRN TYLENOL GIVEN AND ADDITIONAL PILLOW PROVIDED FOR REPOSITIONING SUPPORT. PT CONTINUES TO DENY CHEST PAIN AND SOB. OXYGEN TITRATED TO 2L VIA NC. NO OTHER CHANGES FROM PREVIOUS ASSESSMENT. PT DENIES FURTHER REQUESTS AT THIS TIME. CALL LIGHT AND BELONGINGS WITHIN REACH.
--- NOTE | 2020-04-13 01:57 | NUR ---
IN TO RE-EVALUATE PAIN, PT STATES THAT THE TYLENOL "HAS FINALLY KICKED IN." PT DENIES FURTHER REQUESTS OR CONCERNS AT THIS TIME. HR:90, SPO2:95% ON2L PER TELE #9.
--- NOTE | 2020-04-13 04:00 | NUR ---
PT APPEARS TO BE ASLEEP AT THIS TIME, WILL DEFER ASSESSMENT TO ALLOW FOR REST. HR:89, SPO2:91% ON 2L VIA TELE #9.
--- NOTE | 2020-04-13 05:30 | NUR ---
PT CALLED, UP TO BATHROOM WITH CANE, VOIDED AND RETURNED TO BED. INCREASED OXYGEN TO 4L WITH ACTIVITY, PT REPORTS MILD SOB WITH AMBULATION. ABLE TO TITRATE OXYGEN BACK TO 2L ONCE BACK IN BED. PT REPORTS 8/10 HEADACHE PAIN, PRN TYLENOL GIVEN. HR REMAINS SINUS PER TELE #9, CONTINUES TO DENY CHEST PAIN. DENIES NAUSEA AT THIS TIME. BREAKFAST ORDER RECEIVED. PT DENIES FURTHER REQUESTS AT THIS TIME.
--- NOTE | 2020-04-13 07:20 | NUR ---
REPORT RECEIVED FROM KRISTINE QUEZADA. O2 SATURATION AT 94% ON 2L O2 BY NC. PT DENIES REQUESTS OR COMPLAINTS AT THIS TIME. BED RAILS UP. CALL [facility].
--- NOTE | 2020-04-13 08:10 | NUR ---
Update from Rn. Pt had an uneventful night. She cont. on 2-4 L of 02. Will fu tomorrow.
--- NOTE | 2020-04-13 09:00 | NUR ---
MORNING ASSESSMENT AND MEDICATION DUE. PT RESTING IN BED O2 SATURATIONS MAINTAINING ABOVE 92% ON 2L O2 BY NC WHILE PT IS RESTING. STAND BY ASSIST UP TO CHAIR. O2 STATURATIONS DROP TO 86% ON 2 LITERS WITH ACTIVTY. PT INCREASED TO 4L O2 AND O2 SATURATIONS CLIMB TO 88-90%. RT TO BEDSIDE. O2 INCRAESED TO 6L WITH ACTIVITIES AND PT MAINTAINS ABOVE 92%. ASSESSMENT DONE. UNABLE TO ASCULTATE LUNG, HEART, AND BOWEL SOUNDS RELATED TO PPE. PT REPORTS SWELLIGN SEEMS "BETTER" AND REPORTS "COVID HEADACHE" HAS IMPROVED AND IS NOW 07/05. PT DENIES NAUSEA. PT DENIES ADDITIONAL REQUESTS OR COMPLAINTS. ICE WATER REFILLED. PT EATING BREAKFAST UP IN CHAIR. MEDICATION GIVEN. CALL LIGHT WITHIN REACH.
--- NOTE | 2020-04-13 09:58 | NUR ---
PUMP ALARMING, REMDESIVIR INFUSION COMPLETE. IV SALINE LOCKED AT THIS TIME. STAND BY ASSIST WITH CANE UP TO RESTROOM. PT MAINTAINING O2 SATURATIONS ABOVE 92% BUT NEEDS 6LO2 WITH AMBULATIONS AND ACTIVITES. PT PERFORMS AM CARES AND ORAL CARE INDEPENDANTLY. LINENS CHANGED. PT CONTINUES TO REPORT 2/ "COVID HEADACHE." STATING HEADACHE IS TOELRABLE AND "THE TYELNOL IS HELPING." NO ADDITIONAL REQUESTS OR COMPLAINTS. PT UPDATD ON PLAN OF CARE AND VERBALIZES UNDERSTANDING. CALL LIGHT WITHIN REACH.
--- NOTE | 2020-04-13 10:14 | NUR ---
PT REMAINS UP TO CHAIR. O2 SATURATION NOTED TO BE 100% ON 6L. O2 WEANED TO 4L WHILE PT IS UP TO CHAIR. OXYGEN SATURATION CONTINUES TO MAINTAIN ABOVE 92% ON 4L O2 BY NC. PT DENIES ADDITIONAL REQUESTS OR COMPLAINTS. CALL LIGHT WITHIN REACH.
--- NOTE | 2020-04-13 11:29 | NUR ---
THIS RN TO ROOM TO CHECK ON PT. STAND BY ASSIST WITH CANE UP TO RESTROOM. NEW UNDERWARE AND AYAKA PAD PROVIDED. PT OXYGEN SATURATIONS DROP TO 88% ON 4L O2 BY NC WHILE PT IS UP, AMBULATING, AND IN RESTROOM. OXYGEN SATRUATIONS RECOVER TO % ONCE PT RETURNS TO BED. PT RESTING IN BED. NO ADDITIONAL REQUSTS OR COMPLAINTS AT THIS TIME. LUNCH ORDER PLACED. CALL LIGHT WITHIN REACH. BED RAILSUP.
--- NOTE | 2020-04-13 12:20 | NUR ---
REPORT GIVEN TO KRISTINE JIMENEZ WHO IS ASSUMING CARE OF PT. QUESTIONS ANSWERED.
--- NOTE | 2020-04-13 12:20 | NUR ---
REPORT RECIEVED. ASSESSMENT DONE. ENC INDEPENDENCE. SITTING UP IN BED FOR LUNCH.
--- NOTE | 2020-04-13 13:10 | NUR ---
SIMÓN IS AT BEDSIDE. TOOK KAREN LEAL. HAD SEVERE COUGHING EPISODE.
--- NOTE | 2020-04-13 14:22 | NUR ---
DUE TO PRECAUTIONS, I AM UNABLE TO VISIT PT AT THIS TIME. WILL FOLLOW
--- NOTE | 2020-04-13 14:32 | NUR ---
RESTING AT THIS TIME.
--- NOTE | 2020-04-13 15:15 | NUR ---
RESTFUL, WATCHING TV. HOB ELEVATED.
--- NOTE | 2020-04-13 17:15 | NUR ---
Patient laying in bed watching tv. Reports pain of 5/10 with headache. PRN tylenol given. Patient uses IS, which prompts coughing, 500 mls noted on the IS. PM medications given. BG within parameters, no insulin given. 400 mls of yellow urine emptied from BSC. Patient up to chair for dinner, uses cane to ambulate. Oxygen titrated to 4LNC prior to activity. Water refreshed, warm blanket provided. Denies further needs, call light within reach.
--- NOTE | 2020-04-13 19:30 | NUR ---
HELPED PT GET TO THE BATHROOM AND INTO BED USING HER CANE. POSITIONED PT IN BED TO HER COMFORT. EMPTIED GARBAGES AND FOOD TRAY . BEDSIDE TABLE AND CALL LIGHT IN REACH. CHARTED HER OUTPUT INTO COMPUTER. PT NEEDS NOTHING MORE AT THIS TIME. I USED APPROPRIATE PPE.
--- NOTE | 2020-04-13 21:00 | NUR ---
EVENING MEDS PROVIDED. PATIENT RESTING IN BED. DENIES FEELING SOB OR PAIN. DISCUSSED DIFFICULTY SLEEPING WITH MD, MELATONIN ORDERED. PATIENT AGREEABLE TO THIS PLAN OF CARE. IV SITE WNL. TOLERATING 3L NC. VS STABLE. PATIENT PERFORMING HER OWN PM CARES. DENIES ANY NEEDS. CALL LIGHT IN REACH.
--- NOTE | 2020-04-13 22:40 | NUR ---
PATIENT UP TO THE BATHROOM TO VOID. FELT SOB WITH ACTIVITY THAT DID NOT RESOLVE QUICKLY AFTER BEING BACK IN BED. O2 SATS 87% ON 3L NC WITH ACTIVTY. UP TO 90% WHEN IN BED. SET UP AN OXY MASK WITH 8L O2 TO BE NEXT TO THE BED WHEN THE PATIENT IS FEELING SOB AFTER TRANSFERING. PATIENT STARTS TO FEEL BETTER AFTER 3-5 MINS IN BED. ENCOURAGED BREATHING IN THROUGH NOSE AND OUT THROUGH THE MOUTH. PATIENT HAS CALL LIGHT IN HAND. DENIES OTHER NEEDS. BSC EMPTIED FOR 250 MLS URINE.
--- NOTE | 2020-04-14 00:53 | NUR ---
PATIENT IS RESTING IN BED WITH LIGHTS OUT. O2 SATS 90-92% ON 3L NC. ALLOWING PATIENT TO REST.
--- NOTE | 2020-04-14 01:58 | NUR ---
PATIENT CALLED AND REPORTED FEELING IF SHE WAS HAVING A PANIC ATTACK. WHEN RN CHECKED ON HER THE PATIENT WAS LAYING IN BED. FACE RED AND APPEARED SOB. PATIENT STATED SHE HAD BEEN COUGHING AND ATTEMPTING TO REPOSITION IN BED. PATIENT WAS HAVING DIFFICULTY CATCHING HER BREATH. SHE REPORTS THIS AN ONGOING PROBLEM. SPOKE TO MED. CORONA NEBS AND COUGH SYRUP ORDERED. ASSISTED PATIENT TO REPOSITION TO HER SIDE.
--- NOTE | 2020-04-14 02:50 | NUR ---
PATIENT RESTING WITH LIGHTS OFF. APPEARS TO BE SLEEPING. O2 SAT 94% ON 3L NC.
--- NOTE | 2020-04-14 04:12 | NUR ---
PATIENT DESATING TO LOW 80% ON 4L NC. TITRATED TO 6L NC WITH HUMIDIFICATION. PATIENT RESTING IN BED. RR 22. FEELING SOB. O2 SATS DID NOT IMPROVE ABOUT 90%. ADDED OXYMASK WITH 10L. RT CONTACTED. DISCUSSED PRONING WITH PATIENT BUT SHE STATES THAT SHE IS UNABLE TO LAY ON HER STOMACH AT ALL DUE TO ARTHRITIS. ENCOURGAED SIDE LAYING AT LEAST.
--- NOTE | 2020-04-14 06:15 | NUR ---
MORNING LABS DRAWN. PATIENT RESTING IN BED. REPORTS FEELING LESS SOB. O2 SATS 92% ON 10L OXY MASK. PATIENT CONTINUES TO COUGH UP PHLEM, [place] IN COLOR.
--- NOTE | 2020-04-14 07:20 | NUR ---
Report received, orders acknowledged. Patient currently on 6LNC humidified oxygen, with 10L oxymask over the NC. SpO2 of 97%.
--- NOTE | 2020-04-14 07:53 | NUR ---
Imaging in to complete echo at this time.
--- NOTE | 2020-04-14 08:00 | NUR ---
Patient sitting up in bed with 6LNC humidified and 10L oxymask in place, SpO2 in the mid-90's. Vital signs taken, assessment complete. Crackles auscultated in all lung lobes. Patient has productive cough with brown sputum. Patient up to chair with 1PA for breakfast. 50% of breakfast eaten. Patient on 6LNC while eating meal, SpO2 drops to 81%. Oxymask at 10L put back on patient, SpO2 climbs to the low 90's. IV abx and IV remdesivir given. AM medications given. Patient reports feeling "extremely fatigued...I only slept about an hour last night." POC for the day discussed, patient agreeable.
--- NOTE | 2020-04-14 10:14 | NUR ---
RT in room to administer neb tx and place high flow oxygen on patient
--- NOTE | 2020-04-14 10:30 | NUR ---
Patient reports feeling fatigued, requests to return to bed. Patient up to BSC first, 700 mls of urine out. Patient is a 1PA. New linens on bed, patient returns to bed with 1PA. RT in room to place patient on 15L high flow oxygen. Patient adjusted to laying on left side to increase saturations to mid to low 90's. Lights turned off so patient may rest. Denies needs, call light within reach.
--- NOTE | 2020-04-14 11:00 | NUR ---
RT in room, ABG drawn and sent to lab. Patient moved to room 130. POC discussed with patient. All patient belongings collected and moved to room 130.
--- NOTE | 2020-04-14 12:30 | NUR ---
Patient on 15L high flow NC, SpO2 in the upper 90's. Lunch held due to patient fatigue and SOB with any activity. Patient agreeable to plan. Patient laying on left side with pillow propped underneath for comfort. Denies needs at this time, call light within reach.
--- NOTE | 2020-04-14 13:30 | NUR ---
Spoke with Tamir, patient's , per patient request. Tamir is updated on patient condition and POC.
--- NOTE | 2020-04-14 14:00 | NUR ---
Flor cathether placed, 450 mls of yellow urine emptied
--- NOTE | 2020-04-14 14:12 | NUR ---
COVID SAMPLE COLLECTED NO COMPLICATIONS SENT TO [facility]
--- NOTE | 2020-04-14 14:24 | NUR ---
COVID SAMPLE COLLECTED NO COMPLICATIONS SENT TO [facility]
--- NOTE | 2020-04-14 14:45 | NUR ---
Patient laying in bed with 15L high flow oxygen in place, SpO2 in the upper 90's. Patient reports "I feel better than I did earlier." RT by room checking on patient. Patient laying on left side with a pillow placed underneath hip for comfort. Denies needs, call light within reach.
--- NOTE | 2020-04-14 16:00 | NUR ---
RT in room, bipap placed on patient. Settings at 14/7, FiO2 of 40%. SpO2 in the mid-90's. Patient tolerating bipap well. Patient's called per patient request, updated on patient condition. Vital signs taken, assessment complete. Patient denies further needs at this time, call light within reach.
--- NOTE | 2020-04-14 19:15 | NUR ---
IN RM TO JOCELYNE CALL LIGHT, ABLE TO UNDERSTAND PT IS FEELS COLD, PT ASKING FOR RN, WILL BE IN SHORTLY, PT IS OKAY TO WAIT A MINUTE
--- NOTE | 2020-04-14 20:00 | NUR ---
PATIENT REPORTS PAIN IN HER ABD, CRAMPING. SIMILAR TO PAIN SHE HAS WITH HER ULCERATIVE COLITIS. WARM PACK APPLIED TO ABD. PAIN PILL WITH ZOFRAN ALSO GIVEN. PATIENT OFF BIPAP TO DRINK SOME WATER AND TALK TO HER . PATIENT FEELS THE BIPAP IS HELPING AND FEELS LESS SOB IN GENERAL. 15L HIGH FLOW NC IN PLACE. PATIENT REPOSITIONED TO HER LEFT SIDE. SHULTZ CARE DONE. VS STABLE.
--- NOTE | 2020-04-14 21:45 | NUR ---
PATIENT PROVIDED WITH EVENING MEDS. DENIES NEED FOR COUGH MEDS. PM CARE DONE MOSTLY BY PATIENT. REPORTS IMPROVEMENT IN HER ABD PAIN. SHULTZ EMPTIED. GOOD URINE OUTPUT. RT LISTENED TO THE PATIENT'S LUNGS. REPORTS CLEAR IN UPPERS WITH CRACKLES IN ELIJAH BASES. PATIENT BACK ON BIPAP WITH NEB TREATMENT RUNNING.
--- NOTE | 2020-04-14 22:31 | NUR ---
PATIENT CALLED. HER MOUTH IS VERY DRY AND UNCOMFORTABLE. BIPAP REMOVED. CHIPSTICK PROVIDED. PATIENT HAVING SOME SIPS OF WATER. REPORTS ABD CRAMPING AND SOME BACK PAIN. WARM BLANKET PLACED BEHIND BACK WITH A WARM PACK ON HER ABD. PATIENT REQUEST 20 MIN BREAK FROM BIPAP. TOLERATING 15L HIGH FLOW AT THIS TIME. CALL LIGHT IN REACH.
--- NOTE | 2020-04-14 23:07 | NUR ---
PATIENT TOLERATING 15L HIGH FLOW NC. O2 SATS AROUND 95%. PATIENT REPORTS BEING COMFORTABLE AND WOULD LIKE SOME MORE TIME OFF BIPAP. AGREED WE WOULD PLACE HER BACK ON BIPAP AT MIDNIGHT WHEN I CAME IN FOR ASSESSMENT.
--- NOTE | 2020-04-14 23:45 | NUR ---
JULIO EDWARDSHT UP ON FOR RN AT THIS TIME
--- NOTE | 2020-04-15 00:09 | NUR ---
PATIENT PLACED BACK ON BIPAP / 40% Fi02. PATIENT REPORTSING BEING COMFORTABLE AND LESS ABD CRAMPING AFTER PASSING SOME GAS. SHULTZ DRAINING DILUTE URINE. VS STABLE.
--- NOTE | 2020-04-15 01:21 | NUR ---
PT VITALS CHARTED AT THIS TIME
--- NOTE | 2020-04-15 01:30 | NUR ---
PATIENT UNABLE TO TOLERATE BIPAP AT THIS TIME. REPORTS PAIN ON HER FACE FROM THE PRESSURE AND HAS BEEN UNABLE TO SLEEP THIS NIGHT. ASSISTED PATIENT TO REPOSITION. TOLERATING 15L HIGH FLOW NC. PATIENT IS FRUSTERATED WITH BEING UNABLE TO SLEEP AND IS TEARFUL. RN SAT AT BEDSIDE FOR SEVERAL MINS TO LISTEN TO PATIENT'S CONCERNS.
--- NOTE | 2020-04-15 03:05 | NUR ---
PATIENT CONTINUES TO HAVE DIFFICULTY SLEEPING. DIFFICULT TO HEAR THE PATIENT WHEN WEARING THE PAPR BUT SHE APPEARS TO BE RAMBLING SOME AND NOT MAKING COMPLETE THOUGHTS. PATIENT TALKS ABOUT THE NOISE FROM THE FLOORS BEING CLEANED KEEPING HER AWAKE BUT NO ONE HAS BEEN RUNNING ANY EQUIPMENT. PROVIDED PATIENT WITH EAR PLUGS AND ASSISTED IN PLACING THEM. LIGHTS DIMMED MORE. PRN NORCO PROVIDED FOR GENERAL PAIN IN JOINTS.
--- NOTE | 2020-04-15 05:13 | NUR ---
IN PT RM TO CHECK ON PT'S NEED, PT WANTED TO GO BACK ON TO 15L HIGHFLOW AND OFF CPAP, RN IS AWARE, NO FURTHER NEEDS AT THIS TIME
--- NOTE | 2020-04-15 07:30 | NUR ---
REPORT RECIEVED. RESTING ON O2 AT 15 L HIGH FLOW. HOB ELEVATED TO APPROX 15 DEGREES.
--- NOTE | 2020-04-15 08:00 | NUR ---
PATIENT RESTING IN BED. CALL LIGHT WITHIN REACH. VITAL SIGNS DOCUMENTED. -
--- NOTE | 2020-04-15 08:00 | NUR ---
ASSESSMENT DONE. PATIENT STATES SHE DOES NOT FEEL WELL AT ALL. IS VERY TIRED. BREAKFAST ORDERED. SHULTZ CATH IS PATENT. PATIENT HAS BEEN TAKING SIPS OF WATER FREQUENTLY. STATES HE MOUTH IS VERY DRY. TALKED WITH PATIENT ABOUT POC, INDICATES UNDERSTANDING.
--- NOTE | 2020-04-15 08:30 | NUR ---
C/O LING. WILL GIVE NORCO.
--- NOTE | 2020-04-15 09:00 | NUR ---
IV SITE TO RIGHT AC NON-FUNCTIONAL, ATEMPTED ANOTHER IV SITE X 3 W/O SUCCESS.
--- NOTE | 2020-04-15 10:00 | NUR ---
AFTER WORKING WITH IV SITE TO RIGHT AC, WAS ABLE TO FLUSH WITH 10 ML OF NS. IV ABX HUNG FOLLOWED BY IV REMDESIVIR. TOOK BREAKFAST FAIR. NORCO 1 GIVNE FOR OVERALL DISCOMFORT AND LING. CPAP ON. RT AWARE OF NEED TO IMPLEMENT VPOTHERM.
--- NOTE | 2020-04-15 10:40 | NUR ---
Discussed difficulty restarting IV line with Dr. Dumont. Telephone order Dr. Dumont/Spike Riley, RN, for PICC line consult. KRISTINE Mustafa/Nurse [employer] Manager notified, states she will reach out to PICC line nurses.
--- NOTE | 2020-04-15 11:29 | NUR ---
VAPOTHERM IMPLEMENTED BT RT. CURRENT SETTINGS ON VAPOTHERM 35L, 80% FIO2.
--- NOTE | 2020-04-15 12:18 | NUR ---
PATIENT LAYING IN BED RESTING. NURSE IN ROOM. CALL LIGHT WITHIN REACH AND NO FUTHER NEEDS AT THIS TIME.
--- NOTE | 2020-04-15 12:30 | NUR ---
out of bed to chair. 100% nrbm on WELL VAPOTHERM WITH TRANSFER TO CHAIR. SHONGE BATH GIVEN, BED LINEN CHANGED. GREEN SHEET APPLIED AND BED REZEROED. C/O NAUSEA WITH MOVEMENT. ACCUCHECK 151. INSULIN HELD PATIENT NOT TAKING LUNCH.
--- NOTE | 2020-04-15 13:10 | NUR ---
PICC LINE NURSES ARE HERE TO [place] LINE. PATIENT HAS BEEN IN PRONE POSITION FOR ONLY 10 MIN. PICC LINE ON HOLD UNTIL 1350, WANT TO CONTINUE PRONE POSITION FOR NOW.
--- NOTE | 2020-04-15 13:22 | NUR ---
REMAINS IN PRONE POSITION. NEEDS MUCH ENC TO STAY IN THIS POSITION. PATIENTS WANTS SOMEONE IN ROOM WITH HER.
--- NOTE | 2020-04-15 13:50 | NUR ---
POSITIONED TO BACK, PICC RN'S HERE TO PLACE LINE. PATIENT REMAINS ONVAPOTHERM AT 35 L FIO2 80%.
--- NOTE | 2020-04-15 15:10 | NUR ---
PICC LINE PLACED TALON SALAZAR RN/Maris HODGE RN ASSIST. PATIENT TOLERATED PICC LINE WELL.
--- NOTE | 2020-04-15 15:56 | NUR ---
PICC INSERTION NOTE ORDERS RECIEVED TO EVALUATE JESUS FOR POSSIBLE PICC INSERTION. AFTER REVEIWING THE CHART AND INTERVEWING THE PT WELL THE PRIMARY CCU RN, NO ABSOLUTE CONTRAINDICATIONS WERE FOUND. BOTH ARMS WERE EVALUATED WITH U/S AND THE RIGHT ARM WAS SELECTED DUE TO VEIN SIZE. IT IS NOTABLE THAT THE BASILIC VEIN IS AT 3CM DEPTH AT THE PRIMARY ATTEMPTED INSERTION POINT AND THE ARM SHOWS LOTS OF THIRD SPACING FLUID ON U/S. PICC LINE COMPLICATIONS AND RISKS WERE DISCUSSED WITH THE PT AND INFORMED CONSENT WAS SIGNED PRIOR TO THE START OF THE PROCEDURE. IRINEO STANLEY WILL BE STREAM LINED WITH THIS PICC DUE TO HER COVID STATUS AND DIFFICULT IV ACCESS. STERILE PREP AND DRAPE WAS DONE IN THE USUAL WAY AND THE RIGHT BASILIC VEIN WAS ACCESSED BUT THE GUIDEWIRE WOULD NOT PASS UP THE VEIN. I AM NOT CONFIDENT THAT THE WIRE WAS IN THE VEIN RESISTANCE WAS FELT. FLASH WITH DRIPPING WAS SEEN FROM THE ACCESS DEVICE. A SECOND AREA ON THE SAME VEIN WAS ATTEMPTED WITH THE SAME RESULTS. ATTENTION WAS THEN TURNED TO THE RIGHT BRACHAL VEIN WHICH IS AT 2.5CM DEPTH AND A REASONABLE DISTANCE FROM THE BRACHIAL ARTERY AND NERVE. ACCESS WAS GAINED AND THERE WERE NO ISSUES ADVANCING THE GUIDWIRE, INTRODUCER, OR PICC. BRISK DARK RED NONPULSATILE BLOOD WAS SEEN FLOWING FROM THE INTRODUCER ON INSERTION. SHERLOCK II CONFIRMED THE PICC ADVANCED TO A CENTRAL LOCATION AND DROPPED INTO THE CHEST. A SINGLE CXR WAS TAKEN AND WE ARE AWAITING THE REPORT FROM DR CRAWFORD PRIOR TO CLEARING THE LINE FOR USE. A STERILE DRESSING WAS APPLIED TO THE ARM AND A WARM PACK PLACED OVER THE INSERTION SITE. ALL EDUCATION MATERIALS REGARDING PICC LINES WERE LEFT WITH THE PATIENT. SHE DENIES HAVING ANY QUESTIONS ABOUT PICCS AT THIS POINT.
--- NOTE | 2020-04-15 16:00 | NUR ---
ASSESSMENT DONE, PATIENT STATES SHE FEELS A LITTLE BETTER. LEXII PATENT. ACCUCHECK-193.
--- NOTE | 2020-04-15 17:00 | NUR ---
5 UNITS REG INSULIN GIVEN. REMAINS ON VAPOTHERM AT 80 FIO2, 35 LITERS.
--- NOTE | 2020-04-15 19:11 | NUR ---
NO CHANGES, REPORT TO NEXT SHIFT.
--- NOTE | 2020-04-15 21:00 | NUR ---
EVENING MEDS PROVIDED. PATIENT TOLERATING VAPOTHERM 40L 80% Fi02. PATIENT HAVING SOME COUGHING AND SMALL AMOUNT OF BROWN SPUTUM. PRN COUGH MEDS PROVIDED. GOOD URINE OUTPUT NOTED. SHULTZ CARE DONE. ASSISTED PATIENT TO ROLL TO HER HIGH LEFT SIDE. VS STABLE. ORAL TEMP WNL. PICC LINE FLUSHED AND RETURNED BLOOD ON BOTH LUMENS, HEPA-LOCKED PER ORDERS. PATIENT FEELS STRESSED ABOUT NOT BEING ABLE TO SLEEP. DISCUSSED MELATONIN AND ENCOURAGED PATIENT TO ALERT STAFF IF SHE IS UNABLE TO SLEEP. CALL LIGHT IN REACH.
--- NOTE | 2020-04-15 23:05 | NUR ---
PATIENT PROVIDED WITH PRN TRAZADON. PATIENT REPOSITIONED TO HER BACK WITH HOB ELEVATED. TOLERATING VAPOTHERM 35L 80% Fi02. ASSISTED TO PLACE EAR PLUGS. LIGHTS OFF. CALL LIGHT IN REACH.
--- NOTE | 2020-04-16 00:30 | NUR ---
PATIENT APPEARS TO BE SLEEPING. TOLERATING 35L 80% Fi02. O2 SATS 92%. RR 25-30
--- NOTE | 2020-04-16 02:00 | NUR ---
PATIENT SLEEPING SOUNDLY. O2 SATS HAVE BEEN 88% ON 35L 80% Fi02. NOW PATIENT HAS STARTED TO DESAT TO 86% AND RR 35. RT IN TO TITRATE VAPOTHERM TO 40L 100% Fi02. NOTIFIED.
--- NOTE | 2020-04-16 03:35 | NUR ---
0300 MD DISCUSSED INTUBATION WITH PATIENT AND PATIENT IS IN AGREEMENT WITH PLAN OF CARE. PATIENT SPOKE WITH HER ON THE CELLPHONE. 0315 PATIENT INTUBATED. 7.0 ET TUBE, 21" AT THE LIP. CHERI QUIROZ, DESIRAE IVEY, MELIZA RN AND MICHOACANO RN IN ROOM. OG TUBE PLACED BY MICHOACANO RN. PLACEMENT OF BOTH CONFIRMED BY XRAY. 0325 PATIENT PLACED ON PROPFOL AT 50 MCG/KG/MIN VIA VERBAL ORDERS FROM CHERI QUIROZ. 0340 ABD DONE BY DESIRAE IVEY. PROPOFOL TITRATED TO 30 MCG/KG/MIN. RASS SCORE -3.
--- NOTE | 2020-04-16 03:52 | NUR ---
OG TUBE ADVANCED ABOUT 2 INCHES
--- NOTE | 2020-04-16 05:00 | NUR ---
PATIENT TRANSFERED VIA EMS AT 0430. PATIENT TOLERATING VENT SETTINGS DISCUSSED BY MD AND RT WITH EMS. SECOND BOTTLE OF PROPOFOL PROVIDED FOR TRANSPORT. PATIENT TOLERATING 25 MCG/KG/MIN. REPORT CALLED TO CLOVIS CARMONA AT [facility].
== END 2020-04-16 04:30 | disposition short-term general hospital (02) | DRG 177 ==
LOC: ED 13:11 → CCU 17:09
PROVIDERS: ADMIT Internal Medicine; ATTEND Internal Medicine
PROC: XW033E5 Introduction of Remdesivir Anti-infective into Peripheral Vein, Percutaneous Approach, New Technology Group 5 (ICD-10-PCS; principal; 2020-04-11)
PROC: XW033E5 Introduction of Remdesivir Anti-infective into Peripheral Vein, Percutaneous Approach, New Technology Group 5 (ICD-10-PCS; 2020-04-12)
PROC: XW033E5 Introduction of Remdesivir Anti-infective into Peripheral Vein, Percutaneous Approach, New Technology Group 5 (ICD-10-PCS; 2020-04-13)
PROC: XW033E5 Introduction of Remdesivir Anti-infective into Peripheral Vein, Percutaneous Approach, New Technology Group 5 (ICD-10-PCS; 2020-04-14)
PROC: 5A09357 Assistance with Respiratory Ventilation, Less than 24 Consecutive Hours, Continuous Positive Airway Pressure (ICD-10-PCS; 2020-04-14)
PROC: 5A09357 Assistance with Respiratory Ventilation, Less than 24 Consecutive Hours, Continuous Positive Airway Pressure (ICD-10-PCS; 2020-04-14)
PROC: XW033E5 Introduction of Remdesivir Anti-infective into Peripheral Vein, Percutaneous Approach, New Technology Group 5 (ICD-10-PCS; 2020-04-15)
PROC: 02HV33Z Insertion of Infusion Device into Superior Vena Cava, Percutaneous Approach (ICD-10-PCS; 2020-04-15)
PROC: 0BH17EZ Insertion of Endotracheal Airway into Trachea, Via Natural or Artificial Opening (ICD-10-PCS; 2020-04-16)
DX: U07.1 COVID-19 (principal); J12.89 Other viral pneumonia; J96.01 Acute respiratory failure with hypoxia; K51.90 Ulcerative colitis, unspecified, without complications; Z68.41 Body mass index [BMI] 40.0-44.9, adult; I10 Essential (primary) hypertension; K21.9 Gastro-esophageal reflux disease without esophagitis; E03.9 Hypothyroidism, unspecified; E78.5 Hyperlipidemia, unspecified; M19.90 Unspecified osteoarthritis, unspecified site; E11.65 Type 2 diabetes mellitus with hyperglycemia; J45.909 Unspecified asthma, uncomplicated; G89.4 Chronic pain syndrome; I73.00 Raynaud's syndrome without gangrene; M06.9 Rheumatoid arthritis, unspecified; K44.9 Diaphragmatic hernia without obstruction or gangrene; F51.04 Psychophysiologic insomnia; E66.01 Morbid (severe) obesity due to excess calories; T38.0X5A Adverse effect of glucocorticoids and synthetic analogues, initial encounter; Y92.239 Unspecified place in hospital as the place of occurrence of the external cause; Z87.891 Personal history of nicotine dependence; Z88.2 Allergy status to sulfonamides; Z88.5 Allergy status to narcotic agent; Z88.8 Allergy status to other drugs, medicaments and biological substances; Z79.1 Long term (current) use of non-steroidal anti-inflammatories (NSAID); Z79.891 Long term (current) use of opiate analgesic; Z79.52 Long term (current) use of systemic steroids; Z79.899 Other long term (current) drug therapy
CPT/HCPCS: 31500; 36569; 36600; 71045; 80048; 80053; 82803; 83880; 85025; 94003; 94640; 94660; 94799; 96374; 99285-25; A9270; J0330; J0696; J1100; J1650; J1815; J2405; J2704; J7030; J7050; J8540

== ENCOUNTER 2020-07-16 08:42 | Emergency (ER) | payer MEDICARE, OTHER ==
[~2020-07-16] VITALS: Ht 172.7 cm; Wt 122.6 kg
[~2020-07-16 08:42] MED LIST changes: +AZITHROMYCIN250 MG PO; +DICLOFENAC SODI50 MG PO; +LEVOTHYROXINE175 MCG PO; +PANTOPRAZOLE SO40 MG PO
[2020-07-16] MEDS ORDERED: ELIQUIS5 MG PO (09:01)
[2020-07-16] MEDS ORDERED: METOPROLOL TART25 MG PO (11:08)
--- NOTE | 2020-07-16 12:10 | EKG ---
[facility] [address] [facility] [place] [id number] Signed Sinus tachycardia with premature atrial complexes Nonspecific T wave abnormality Abnormal ECG When compared with ECG of 23-NOV-2018 01:21, premature atrial complexes are now present Nonspecific T wave abnormality, worse in Inferior leads Nonspecific T wave abnormality, worse in Lateral leads Confirmed by HERB DESAI MD ([id number]) on 07/16/2020 12:10:31 PM Electronically Signed By: HERB DESAI MD 07/16/20 1210 PATIENT NAME: JESUS JUAREZ Electrocardiogram DATE OF : 50 PHYSICIAN: HERB DESAI MD REPORT #: [id number] REPORT IS CONFIDENTIAL AND NOT TO BE RELEASED WITHOUT AUTHORIZATION
== END 2020-07-16 11:40 | disposition home or self-care (01) ==
LOC: ED 08:42
DX: R00.0 Tachycardia, unspecified (principal); Z86.16 Personal history of COVID-19; I10 Essential (primary) hypertension; K21.9 Gastro-esophageal reflux disease without esophagitis; E03.9 Hypothyroidism, unspecified; E78.5 Hyperlipidemia, unspecified; E11.9 Type 2 diabetes mellitus without complications; Z87.891 Personal history of nicotine dependence; Z88.2 Allergy status to sulfonamides; Z88.8 Allergy status to other drugs, medicaments and biological substances; Z88.1 Allergy status to other antibiotic agents; Z88.5 Allergy status to narcotic agent; Z91.048 Other nonmedicinal substance allergy status; Z79.899 Other long term (current) drug therapy
CPT/HCPCS: 71045; 80053; 83880; 84484; 85025; 93005; 93010; 96374; 99285-25

== ENCOUNTER 2020-07-22 06:59 | Emergency (ER) | payer MEDICARE, OTHER ==
[~2020-07-22] VITALS: Ht 172.7 cm; Wt 122.6 kg
[~2020-07-22 06:59] MED LIST changes: +ELIQUIS5 MG PO; +METOPROLOL TART25 MG PO
--- OUTSIDE RECORDS SUMMARY | 2020-07-22 07:02 | XMS ---
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 Care History Medical/Surgical 01/12/2018 [facility] - Patient is currently established with [facility]. If patient is seen in the ED during business hours. Please contact CHWs at [facility]. Care Recommendation: This patient has had [...] providing care. E.D. VISIT COUNT (12 MO.) 4 [facility] TOTAL 4 NOTE: Visits indicate total known visits. ED/UCC VISIT TRACKING (12 MO.) 07/22/2020 07:00 [facility] [place] TYPE: Emergency COMPLAINT: - RAPID HEART RATE,CHEST PAIN 07/16/2020 08:43 [facility] [place] TYPE: Emergency COMPLAINT: - HEART ISSUES DIAGNOSES: - Allergy status to sulfonamides - Hypothyroidism, unspecified - Chest pain, unspecified - Hyperlipidemia, unspecified - Essential (primary) hypertension - Other nonmedicinal substance allergy status - Tachycardia, unspecified - Gastro-esophageal reflux disease without esophagitis - Other detention (current) drug therapy - Type 2 diabetes mellitus without complications - Allergy status to other drugs, medicaments and biological substances - Personal history of nicotine dependence - Allergy status to narcotic agent - Allergy status to other antibiotic agents 04/11/2020 13:11 [facility] [place] TYPE: Emergency COMPLAINT: - FEVER 04/09/2020 14:46 [facility] [place] TYPE: Emergency COMPLAINT: - FLU SYMPTOMS DIAGNOSES: - Allergy status to other antibiotic agents - Allergy status to other drugs, medicaments and biological substances - Allergy status to other antibiotic agents - Cough - Other detention (current) drug therapy - Other nonmedicinal substance allergy status - Allergy status to other drugs, medicaments and biological substances - COVID-19 - Hypothyroidism, unspecified - Hyperlipidemia, unspecified - Essential (primary) hypertension - Type 2 diabetes mellitus without complications - Allergy status to sulfonamides - Personal history of nicotine dependence - Allergy status to sulfonamides - COVID-19 - Gastro-esophageal reflux disease without esophagitis - Allergy status to narcotic agent - Allergy status to narcotic agent INPATIENT VISIT TRACKING (12 MO.) 04/16/2020 06:46 [facility] [place] TYPE: Respiratory Therapy DIAGNOSES: - Supraventricular tachycardia - Other hypotension - Acute kidney failure, unspecified - Acute and chronic respiratory failure with hypoxia - Respiratory failure, unspecified, unspecified whether with hypoxia or hypercapnia - Disorientation, unspecified - Elevation of levels of liver transaminase levels - Other viral pneumonia - Stupor - Body mass index [BMI] 39.0-39.9, adult - Hypotension, unspecified - Acute and chronic respiratory failure with hypercapnia - Essential (primary) hypertension - COVID-19 - Other specified counseling - Morbid (severe) obesity due to excess calories - Morbid (severe) obesity with alveolar hypoventilation - Acute respiratory failure with hypoxia - Acute respiratory distress syndrome - Metabolic encephalopathy - Non-ST elevation (NSTEMI) myocardial infarction - COVID - Laryngeal spasm - Rheumatoid arthritis, unspecified - Paroxysmal atrial fibrillation - Obesity, unspecified - Obstructive sleep apnea (adult) (pediatric) - Hypovolemia - ARDS - Epigastric pain - Encephalopathy, unspecified - Acute respiratory failure with hypercapnia 04/11/2020 17:09 [facility] [place] TYPE: Critical Care COMPLAINT: - ACUTE RESP.FAILURE DIAGNOSES: - Ulcerative colitis, unspecified, without complications - Allergy status to narcotic agent - Essential (primary) hypertension - Unspecified place in hospital as the place of occurrence of the external cause - Hyperlipidemia, unspecified - Rheumatoid arthritis, unspecified - Adverse effect of glucocorticoids and synthetic analogues, initial encounter - Essential (primary) hypertension - Rheumatoid arthritis, unspecified - Unspecified asthma, uncomplicated - Allergy status to sulfonamides - Diaphragmatic hernia without obstruction or gangrene - Personal history of nicotine dependence - Body mass index [BMI]40.0-44.9, adult - Diaphragmatic hernia without obstruction or gangrene - Adverse effect of glucocorticoids and synthetic analogues, initial encounter - Allergy status to sulfonamides - Gastro-esophageal reflux disease without esophagitis - Ulcerative colitis, unspecified, without complications - Morbid (severe) obesity due to excess calories - Chronic pain syndrome - Type 2 diabetes mellitus with hyperglycemia - penitentiary (current) use of non-steroidal anti-inflammatories (NSAID) - Unspecified osteoarthritis, unspecified site - Hyperlipidemia, unspecified - Gastro-esophageal reflux disease without esophagitis - Body mass index [BMI]40.0-44.9, adult - Other viral pneumonia - penitentiary (current) use of systemic steroids - Acute respiratory failure with hypoxia - Allergy status to other drugs, medicaments and biological substances - Other 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 director (current) drug therapy - Body mass index [BMI]40.0-44.9, adult - Morbid (severe) obesity due to excess calories - Raynaud's syndrome without gangrene - Psychophysiologic insomnia - Allergy status to narcotic agent - artificial limb fitter (current) use of opiate analgesic - Acute respiratory failure with hypoxia - artificial limb fitter (current) use of non-steroidal anti-inflammatories (NSAID) - Type 2 diabetes mellitus with hyperglycemia - Psychophysiologic insomnia - Hypothyroidism, unspecified - Other viral pneumonia - Chronic pain syndrome - Unspecified osteoarthritis, unspecified site - Allergy status to narcotic agent - Hypothyroidism, unspecified - Allergy status to other drugs, medicaments and biological substances - penitentiary (current) use of systemic steroids - penitentiary (current) use of opiate analgesic - Personal history of nicotine dependence - Raynaud's syndrome without gangrene - Allergy status to sulfonamides - COVID-19 - Unspecified asthma, uncomplicated - Other detention (current) drug therapy - Unspecified place in hospital as the place of occurrence of the external cause - Allergy status to other drugs, medicaments and biological substances 04/09/2020 19:10 [facility] [place] TYPE: Critical Care COMPLAINT: - FLU SYMPTOMS [email or web address]
[2020-07-22] MEDS ORDERED: NAPROSYN500 MG PO (10:34)
[2020-07-22] MEDS ORDERED: METOPROLOL TART25 MG PO (10:34)
--- NOTE | 2020-07-22 15:51 | EKG ---
[facility] [address] [facility] [place] [address] Signed Sinus tachycardia with premature atrial complexes Nonspecific T wave abnormality Abnormal ECG No previous ECGs available Confirmed by MARIELLE JOHNSON DO ([id number]) on 07/22/2020 3:51:13 PM Electronically Signed By: MARIELLE JOHNSON DO 07/22/20 155 PATIENT NAME: JESUS JUAREZ Electrocardiogram DATE OF : 50 PHYSICIAN: MARIELLE JOHNSON DO REPORT #: [id number] REPORT IS CONFIDENTIAL AND NOT TO BE RELEASED WITHOUT AUTHORIZATION
== END 2020-07-22 11:07 | disposition home or self-care (01) ==
LOC: ED 06:59
DX: I48.91 Unspecified atrial fibrillation (principal); I31.3 Pericardial effusion (noninflammatory); I10 Essential (primary) hypertension; K21.9 Gastro-esophageal reflux disease without esophagitis; E03.9 Hypothyroidism, unspecified; E78.5 Hyperlipidemia, unspecified; E11.9 Type 2 diabetes mellitus without complications; Z88.8 Allergy status to other drugs, medicaments and biological substances; Z88.2 Allergy status to sulfonamides; Z88.1 Allergy status to other antibiotic agents; Z91.048 Other nonmedicinal substance allergy status; Z88.5 Allergy status to narcotic agent; Z79.899 Other long term (current) drug therapy
CPT/HCPCS: 71045; 71260; 80053; 81001; 83880; 84443; 84484; 85025; 85379; 93005; 93010; 99285-25; J1160; Q9967

== ENCOUNTER 2021-07-25 23:48 | Emergency (ER) | payer MEDICARE, OTHER ==
[~2021-07-25] VITALS: Ht 172.7 cm; Wt 122.5 kg
[~2021-07-25 23:48] MED LIST changes: +NAPROSYN500 MG PO
--- OUTSIDE RECORDS SUMMARY | 2021-07-25 23:50 | XMS ---
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 Care History Medical/Surgical 07/24/2020 [facility] Patient went to ED for chest pain due heart issues.\T\nbsp; Appropriate use of ED. 01/12/2018 [facility] - Patient is currently established with [facility]. If patient is seen in the ED during business hours. Please contact CHWs at [facility]. Care Recommendation: This patient has had [...] providing care. E.D. VISIT COUNT (12 MO.) 1 [facility] TOTAL 1 NOTE: Visits indicate total known visits. ED/UCC VISIT TRACKING (12 MO.) 07/25/2021 23:48 [facility] [place] TYPE: Emergency COMPLAINT: - CHEST PAIN INPATIENT VISIT TRACKING (12 MO.) No inpatient visits to display in this time frame [email or web address]
--- NOTE | 2021-07-26 07:24 | EKG ---
[facility] [address] [facility] [place] [address] Signed Normal sinus rhythm Minimal voltage criteria for LVH, may be normal variant ( Dresden product ) Borderline ECG When compared with ECG of 22-JUL-2020 07:05, premature atrial complexes are no longer present Nonspecific T wave abnormality, improved in Inferior leads T wave amplitude has increased in Anterior leads Confirmed by DOV ALMAZAN MD ([id number]) on 07/26/2021 7:23:48 AM Electronically Signed By: DOV ALMAZAN MD 07/26/21 0724 PATIENT NAME: JESUS JUAREZ Electrocardiogram DATE OF : 50 PHYSICIAN: DOV ALMAZAN MD REPORT #: [id number] REPORT IS CONFIDENTIAL AND NOT TO BE RELEASED WITHOUT AUTHORIZATION
== END 2021-07-26 02:47 | disposition home or self-care (01) ==
LOC: ED 23:48
DX: R07.89 Other chest pain (principal); I10 Essential (primary) hypertension; K21.9 Gastro-esophageal reflux disease without esophagitis; E03.9 Hypothyroidism, unspecified; E78.5 Hyperlipidemia, unspecified; M19.90 Unspecified osteoarthritis, unspecified site; I48.91 Unspecified atrial fibrillation; E11.9 Type 2 diabetes mellitus without complications; Z88.2 Allergy status to sulfonamides; Z88.8 Allergy status to other drugs, medicaments and biological substances; Z91.048 Other nonmedicinal substance allergy status; Z88.5 Allergy status to narcotic agent; Z79.899 Other long term (current) drug therapy; Z79.01 Long term (current) use of anticoagulants
CPT/HCPCS: 36415; 71045; 71260; 80053; 83735; 84484; 85025; 85379; 93005; 93010; 96375; 99285-25; J1170; J2405; Q9967

== ENCOUNTER 2021-07-29 10:39 | Emergency (ER) | payer MEDICARE, OTHER ==
[~2021-07-29] VITALS: Ht 172.7 cm; Wt 105.8 kg
--- OUTSIDE RECORDS SUMMARY | 2021-07-29 10:42 | XMS ---
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 Care History Medical/Surgical 07/24/2020 [facility] Patient went to ED for chest pain due heart issues.\T\nbsp; Appropriate use of ED. 01/12/2018 [facility] - Patient is currently established with [facility]. If patient is seen in the ED during business hours. Please contact CHWs at [facility]. Care Recommendation: This patient has had 5 [...] care. E.D. VISIT COUNT (12 MO.) [address] [facility] TOTAL 2 NOTE: Visits indicate total known visits. ED/UCC VISIT TRACKING (12 MO.) 07/29/2021 10:40 [facility] [place] TYPE: Emergency COMPLAINT: - EXTREME HEADACHE 07/25/2021 23:48 [facility] [place] TYPE: Emergency COMPLAINT: - CHEST PAIN INPATIENT VISIT TRACKING (12 MO.) No inpatient visits to display in this time frame [email or web address]
[2021-07-29] MEDS ORDERED: ONDANSETRON ODT8 MG PO (12:49)
== END 2021-07-29 13:05 | disposition home or self-care (01) ==
LOC: ED 10:39
DX: R51.9 Headache, unspecified (principal); I10 Essential (primary) hypertension; K21.9 Gastro-esophageal reflux disease without esophagitis; E03.9 Hypothyroidism, unspecified; E78.5 Hyperlipidemia, unspecified; M19.90 Unspecified osteoarthritis, unspecified site; E11.9 Type 2 diabetes mellitus without complications; I48.91 Unspecified atrial fibrillation; Z79.899 Other long term (current) drug therapy; Z91.048 Other nonmedicinal substance allergy status; Z79.01 Long term (current) use of anticoagulants
CPT/HCPCS: 36415; 70450; 80048; 85025; 86140; 96374; 96375; 99284-25; A9270; J1170; J2405; J7040

== ENCOUNTER 2022-03-11 05:40 | Day surgery (SDC) | payer MEDICARE, OTHER ==
[~2022-03-11] VITALS: Ht 172.7 cm; Wt 107.7 kg
[~2022-03-11 05:40] MED LIST changes: +DULOXETINE HCL20 MG PO; +FOLBIC TABLET1 EACH PO
[2022-03-11] MEDS ORDERED: OXYCODONE HCL5 MG PO (08:49)
[2022-03-11] MEDS ORDERED: ACETAMINOPHEN500 MG PO (08:49)
[2022-03-11] MEDS ORDERED: SENNA LAX8.6 MG PO (08:49)
--- NOTE | 2022-03-11 09:00 | NUR ---
03/11/22 0900 Radha Larry 0805 PATIENT ARRIVES TO PACU AWAKE BUT DROWSY. DENIES PAIN OR NAUSEA. RESP EVEN AND UNLABORED, MASK AT 6 LITERS.
--- NOTE | 2022-03-11 09:35 | NUR ---
[id number]: PT ARRIVES BACK TO DS RM 7 VIA STRETCHER FROM PACU. PT DROWSY ON ARRIVAL AND ABLE TO DENY NAUSEA AND RATES PAIN 6/10. ICED WATER AND CRACKERS PROVIDED TO MOVE TOWARD ORAL PAIN MEDS. PT SPOUSE AT BEDSIDE ON ARRIVAL. CRYO CUFF IN PLACE ON BEDSIDE TABLE TO LEFT. CALL LIGHT WITHIN REACH.
--- NOTE | 2022-03-11 09:54 | NUR ---
0945-PATIENT ATE CRACKERS AND DRANK JUICE. RATES PAIN 11/02. 0948-PAIN MEDICATION GIVEN PER EMAR.
--- NOTE | 2022-03-11 10:13 | NUR ---
PATIENT RATES PAIN 4/10 AND THIS IS TOLERABLE FOR HER.
--- NOTE | 2022-03-11 10:54 | NUR ---
1049-PATIENT LAYING IN BED. PATIENT IS DROWSY. RESP EVEN AND UNLABORED. RATES PAIN 2/10, DENIES NAUSEA. SMALL AMOUNT OF DRAINAGE NOTED ON UPPER DRESSING. LOWER DRESSING IS CLEAN, DRY, AND INTACT. CRYO CUFF IN PLACE AND RUNNING. FAMILY IN ROOM. PROVIDED PATIENT WITH APPLE JUICE. CALL LIGHT WITHIN REACH.
--- NOTE | 2022-03-11 12:14 | NUR ---
1207-PATIENT LAYING IN BED AWAKE. RESP EVEN AND UNLABORED. RATES PAIN 2/10 AND DENIES NAUSEA. UPPER DRESSING HAS A SMALL AMOUNT OF DRAINAGE. LOWER DRESSING IS CLEAN, DRY, AND INTACT. CRYO CUFF IN PLACE AND RUNNING. FAMILY IN ROOM. ORDER PATIENT LUNCH. CALL LIGHT WITHIN REACH.
--- NOTE | 2022-03-11 13:49 | NUR ---
1340-PT IN WITH PATIENT. 1345-PATIENT AMBULATES WITH WALKER TO BATHROOM WITH PT AND THIS NURSE. PATIENT ABLE TO VOID 100ML OF YELLOW URINE. 1400-PATIENT LEAVES DAY SURGERY WITH PT.
--- NOTE | 2022-03-11 15:09 | NUR ---
1509-PATIENT LAYING IN BED AWAKE. RESP EVEN AND UNLABORED. RATES PAIN 2/10, DENIES NAUSEA. SMALL AMOUNT OF DRAINAGE ON UPPER DRESSING. LOWER DRESSING IS CLEAN, DRY, AND INTACT. CRYO CUFF IN PLACE AND RUNNING. PATIENT IS READY TO GO HOME. THIS RN HELPS PATINET GET DRESSED.
--- NOTE | 2022-03-20 09:47 | OR ---
[facility] [address] [facility] [place], [place] [address] Signed DATE OF OPERATION: 03/11/2022 SURGEON: Concepcion Rice MD PREOPERATIVE DIAGNOSIS: Severe degenerative joint disease, left hip. POSTOPERATIVE DIAGNOSIS: Severe degenerative joint disease, left hip. PROCEDURE PERFORMED: Left total hip arthroplasty with Nicola. RADIO RECORDER: Lorena Haynes PA-C. Lorena was present and critical for all portions of procedure. ANESTHESIA: Spinal. BLOOD LOSS: 175 mL. IMPLANTS: Makayla Accolade II size 5 stem, 52 cup and -5 head with two 6.5 mm screws. BRIEF HISTORY: Vanesa is a 71-year-old female with history of worsening hip pain and stiffness. Risks and benefits of operative treatment were discussed after nonoperative treatment was unsuccessful in controlling her symptoms. Risks, benefits, and alternatives were discussed and she understood and wished to proceed. PROCEDURE IN DETAIL: Once consent was obtained, she was taken to the operating room. After adequate anesthesia, she was placed in the right lateral decubitus position with downside pressure points padded. Axillary roll was placed. The hip was then prepped and draped in a standard sterile fashion. Stab incision was made in the posterior portion of the iliac crest and the three pins for the Nicola computer array were then placed and the array was registered with the computer. Once this was accomplished, the hip was approached through standard anterior and lateral approach through skin and subcutaneous Electronically Signed By: CONCEPCION RICE MD 03/11/22 1528 Electronically Signed By: CONCEPCION RICE MD 03/20/22 1032 PATIENT NAME: VANESA JUAREZ OPERATIVE REPORT DATE OF : 50 REPORT #: [id number] PHYSICIAN: CONCEPCION RICE MD PCP: DANIEL CHAVIRA MD REPORT IS CONFIDENTIAL AND NOT TO BE RELEASED WITHOUT AUTHORIZATION [facility] [address] [place], [place] [address] Signed tissue. The IT band was divided longitudinally and the vastus lateralis was then divided from the tip of the trochanter along the anterior margin of the femur and elevated subperiosteally around the level of the lesser trochanter. The anterior capsule was divided from the trochanter to the acetabular rim peeled off the anterior neck into all way around. Once this was accomplished, the tip point for the femur was placed in the trochanter and the femur was registered with the computer. The hip was then dislocated and the femoral neck cut was made one fingerbreadth above the lesser trochanter. The head was removed. The periacetabular soft tissue was removed. The pulvinar was removed. All bleeders were cauterized. The acetabulum was then registered with the computer. The robot was then brought in. A 52 cup was reamed in 40 degrees of abduction and 23 degrees of anteversion. The bone was felt to be fairly soft, so we did impact the cup the same angle and placed two posterior superior screws. The liner was then impacted. Attention was then turned to the proximal femur which was opened using the haritha cutter followed by the Drew awl. The lateralize reamer was then utilized and the femur was broached starting with a 3 going to a 5, which matched the preoperative templating. The 5 was quite stable. Initially after the reduction, our leg lengths were little bit long. We sank the femur just a little bit more, switched to -5, which showed good leg lengths. Stability was good. There was no over tightening. The hip was dislocated and the trials removed. The final stem was impacted until it was well-seated and stable. The -5 head was then impacted and the hip was reduced, again leg lengths were found to be great. The wound was copiously irrigated. A total of 3 L normal saline under pulse lavage was used. There was IrriSept soak in the middle. The periarticular soft tissues were injected with 100 mL ropivacaine Toradol mixture. The capsule was then closed using #2 Vicryl. The vastus and IT band layers were closed independently using #2 Stratafix, subcutaneous tissue with 0-Quill and the skin with 3-0 Stratafix. The wound was then sealed with LiquiBand and dressed with Acticoat 7 dressing, ABD. She tolerated the procedure well. All sponge, needle, and instrument counts were correct. Concepcion Rice MD BA/MODL /[id number] Electronically Signed By: CONCEPCION RICE MD 03/11/22 1528 Electronically Signed By: CONCEPCION RICE MD 03/20/22 1032 PATIENT NAME: VANESA JUAREZ OPERATIVE REPORT DATE OF : 50 REPORT #: [id number] PHYSICIAN: CONCEPCION RICE MD PCP: DANIEL CHAVIRA MD REPORT IS CONFIDENTIAL AND NOT TO BE RELEASED WITHOUT AUTHORIZATION [place] [id number] Signed Copies: ~ Electronically Signed By: CONCEPCION RICE MD 03/11/22 1528 Electronically Signed By: CONCEPCION RICE MD 03/20/22 1032 PATIENT NAME: ANNVANESA RAE OPERATIVE REPORT DATE OF : 50 REPORT #: [id number] PHYSICIAN: CONCEPCION RICE MD PCP: DANIEL CHAVIRA MD REPORT IS CONFIDENTIAL AND NOT TO BE RELEASED WITHOUT AUTHORIZATION
== END 2022-03-11 15:25 | disposition home or self-care (01) ==
LOC: DS 05:40
PROVIDERS: ATTEND Specialist
PROC: 0SRB01Z Replacement of Left Hip Joint with Metal Synthetic Substitute, Open Approach (ICD-10-PCS; principal; 2022-03-11 07:00)
DX: M16.12 Unilateral primary osteoarthritis, left hip (principal); Z87.891 Personal history of nicotine dependence; I10 Essential (primary) hypertension; E03.9 Hypothyroidism, unspecified; K21.9 Gastro-esophageal reflux disease without esophagitis; E78.2 Mixed hyperlipidemia; F32.9 Major depressive disorder, single episode, unspecified; Z88.2 Allergy status to sulfonamides; Z88.5 Allergy status to narcotic agent; E66.01 Morbid (severe) obesity due to excess calories; Z68.41 Body mass index [BMI] 40.0-44.9, adult; Z86.16 Personal history of COVID-19; E11.9 Type 2 diabetes mellitus without complications
CPT/HCPCS: 72170; 97161; C1713; C1776; J0131; J0690; J2001; J2250; J2405; J2704; J3010; J7121

== ENCOUNTER 2023-10-02 22:17 | Emergency (ER) | payer MEDICARE, OTHER ==
[~2023-10-02] VITALS: Ht 172.7 cm; Wt 110.5 kg
[~2023-10-02 22:17] MED LIST changes: +ACETAMINOPHEN500 MG PO; +ALLOPURINOL100 MG PO; +DICYCLOMINE HCL10 MG PO; +FOLBEE TABLET1 EACH PO; +HYDROCODON-ACE1 EA10 PO; +LEVOTHYROXINE125 MCG PO; +LODOCO0.5 MG PO; +LOSARTAN POTASS25 MG PO; +OXYCODONE HCL5 MG PO; +SENNA LAX8.6 MG PO
[2023-10-02 22:42] LABS: HEMOGLOBIN 14.9 g/dL (12.0-18.0); MCHC 33.1 g/dl (30-36)
[2023-10-02 22:44] LABS: BASOPHILS 0.3 % (0-2); EOSINOPHILS 0.1 % (0-6); HEMATOCRIT 45.2 % (35.0-50.0); LYMPHOCYTES 15.1 % (24-44); MCH 31.4 (27-36); MCV 94.8 fl (81-99); MONOCYTES 9.3 % (0-12); NEUTROPHILS 75.2 % (39-80); PLATELET COUNT 266 K/uL (140-440); RBC 4.76 M/ul (4.3-5.7); RDW 16.1 (10.5-15.0)
[2023-10-02 22:59] LABS: ALBUMIN 3.3 g/dL (3.4-5.0); ALBUMIN/GLOBULIN RATIO 0.69 (1.1-2.4); ANION GAP 11.8 (7-21); BILIRUBIN, TOTAL 0.8 ng/dL (0.2-1.0); BUN/CREATININE RATIO 15.38 (6.0-28.6); CALCIUM 8.7 mg/dL (8.5-10.1); CREATININE, SERUM 1.3 mg/dL (0.55-1.02); POTASSIUM 3.8 mmol/L (3.5-5.1); PROTEIN, TOTAL 8.1 g/dL (6.4-8.2)
[2023-10-02] MEDS ORDERED: HYDROCODONE/ACETA 5/325 TAB PO ONE (23:15)
[2023-10-02] MEDS ORDERED: DEXAMETHASONE SOD PHOS 10 MG/ML VIAL IV ONE (23:15)
[2023-10-02] MEDS ORDERED: MORPHINE SULFATE 4 MG/ML VIAL IV ONE (23:30)
[2023-10-03] MEDS ORDERED: FUROSEMIDE 40 MG/4 ML VIAL IV ONE (00:30)
[2023-10-03] MEDS ORDERED: DEXAMETHASONE SOD PHOS 10 MG/ML VIAL IV ONE (00:30)
[2023-10-03 02:19] LABS: INFLUENZA B NAA NEGATIVE (NEGATIVE); RESPIRATORY SYNCYTIAL VIR NAA NEGATIVE (NEGATIVE)
[2023-10-03 02:55] VITALS: BP 133/78
--- NOTE | 2023-10-04 18:31 | EKG ---
[facility] [address] [facility] [place] [address] Signed Normal sinus rhythm Normal ECG When compared with ECG of 01-OCT-2023 14:50, No significant change was found Confirmed by JEANNIE OROURKE MD ([id number]) on 10/04/2023 6:32:08 PM Electronically Signed By: JEANNIE OROURKE 10/04/231830 PATIENT NAME: JESUS JUAREZ Electrocardiogram DATE OF : 50 PHYSICIAN: JEANNIE OROURKE REPORT #: [id number] REPORT IS CONFIDENTIAL AND NOT TO BE RELEASED WITHOUT AUTHORIZATION
== END 2023-10-03 02:55 | disposition home or self-care (01) ==
LOC: ED 22:17
PROVIDERS: Internal Medicine
DX: I11.0 Hypertensive heart disease with heart failure (principal); I50.9 Heart failure, unspecified; K21.9 Gastro-esophageal reflux disease without esophagitis; E03.9 Hypothyroidism, unspecified; E78.5 Hyperlipidemia, unspecified; M19.90 Unspecified osteoarthritis, unspecified site; E11.9 Type 2 diabetes mellitus without complications; I48.91 Unspecified atrial fibrillation; M10.9 Gout, unspecified; Z88.2 Allergy status to sulfonamides; Z88.1 Allergy status to other antibiotic agents; Z88.8 Allergy status to other drugs, medicaments and biological substances; Z79.84 Long term (current) use of oral hypoglycemic drugs; Z79.899 Other long term (current) drug therapy
CPT/HCPCS: 36415; 71045; 71260; 74177; 80053; 83735; 83880; 84484; 85025; 87502; 93005; 93010; 96374; 96375; 99284-25; J1100; J1940; J2270; Q9967; U0002

== ENCOUNTER 2023-11-29 03:32 | Emergency (ER) | payer MEDICARE, OTHER ==
[~2023-11-29] VITALS: Ht 172.7 cm; Wt 98.2 kg
[2023-11-29] MEDS ORDERED: MORPHINE SULFATE 4 MG/ML VIAL IV ONE (04:00)
[2023-11-29] MEDS ORDERED: FAMOTIDINE 20 MG/ 2 ML VIAL IV ONE (04:00)
[2023-11-29 04:17] LABS: BASOPHILS 0.4 % (0-2); HEMOGLOBIN 15.2 g/dL (12.0-18.0); LYMPHOCYTES 9.5 % (24-44); MCH 31.1 (27-36); MCHC 33.1 g/dl (30-36); MONOCYTES 7.2 % (0-12); NEUTROPHILS 82.9 % (39-80); PLATELET COUNT 246 K/uL (140-440); RBC 4.89 M/ul (4.3-5.7); RDW 15.5 (10.5-15.0)
[2023-11-29 04:40] LABS: ALBUMIN 3.2 g/dL (3.4-5.0); ALBUMIN/GLOBULIN RATIO 0.67 (1.1-2.4); ANION GAP 12.9 (7-21); BUN/CREATININE RATIO 17.07 (6.0-28.6); CALCIUM 9.3 mg/dL (8.5-10.1); CREATININE, SERUM 1.23 mg/dL (0.55-1.02); POTASSIUM 4.9 mmol/L (3.5-5.1)
[2023-11-29] MEDS ORDERED: DEXAMETHASONE SOD PHOS 10 MG/ML VIAL IV ONE (05:00)
[2023-11-29] MEDS ORDERED: GABAPENTIN300 MG PO (05:08)
[2023-11-29 05:30] VITALS: BP 129/75
--- NOTE | 2023-11-29 13:48 | EKG ---
[facility] [address] [facility] [place] [address] Signed Normal sinus rhythm Normal ECG When compared with ECG of 02-OCT-2023 22:23, No significant change was found Confirmed by Jhon Holguin MD ([id number]) on 11/29/2023 1:48:06 PM Electronically Signed By: JHON HOLGUIN 11/29/23 1348 PATIENT NAME: JESUS JUAREZ Electrocardiogram DATE OF : 50 PHYSICIAN: JHON HOLGUIN REPORT #: [id number] REPORT IS CONFIDENTIAL AND NOT TO BE RELEASED WITHOUT AUTHORIZATION
== END 2023-11-29 05:45 | disposition home or self-care (01) ==
LOC: ED 03:32
PROVIDERS: Internal Medicine
DX: R07.81 Pleurodynia (principal); J90 Pleural effusion, not elsewhere classified; K44.9 Diaphragmatic hernia without obstruction or gangrene; E11.9 Type 2 diabetes mellitus without complications; I10 Essential (primary) hypertension; Z88.8 Allergy status to other drugs, medicaments and biological substances; Z88.5 Allergy status to narcotic agent; Z91.09 Other allergy status, other than to drugs and biological substances; Z79.899 Other long term (current) drug therapy; Z79.890 Hormone replacement therapy
CPT/HCPCS: 36415; 71045; 80053; 83690; 83880; 84484; 85025; 86140; 93005; 93010; 96374; 96375; 99285-25; J1100; J2270

== ENCOUNTER 2023-12-08 17:23 | Emergency (ER) | payer MEDICARE, OTHER ==
[~2023-12-08] VITALS: Ht 172.7 cm; Wt 116.0 kg
[~2023-12-08 17:23] MED LIST changes: +GABAPENTIN300 MG PO
[2023-12-08 17:54] LABS: HEMOGLOBIN 14.4 g/dL (12.0-18.0)
[2023-12-08 17:56] LABS: HEMATOCRIT 43.6 % (35.0-50.0); MCH 31.1 (27-36); MCHC 33.1 g/dl (30-36); MCV 94.1 fl (81-99); PLATELET COUNT 312 K/uL (140-440); RBC 4.63 M/ul (4.3-5.7); RDW 15.6 (10.5-15.0)
[2023-12-08 18:12] LABS: BANDS, MANUAL DIFF 1; BASOPHILS, MANUAL DIFF 2; LYMPHOCYTES, MANUAL DIFF 7; MONOCYTES, MANUAL DIFF 8; NEUTROPHILS, MANUAL DIFF 82
[2023-12-08 18:33] LABS: ALBUMIN 2.7 g/dL (3.4-5.0); ALBUMIN/GLOBULIN RATIO 0.53 (1.1-2.4); ANION GAP 12.4 (7-21); BILIRUBIN, TOTAL 2.4 ng/dL (0.2-1.0); BUN/CREATININE RATIO 17.39 (6.0-28.6); CALCIUM 9.4 mg/dL (8.5-10.1); CREATININE, SERUM 1.61 mg/dL (0.55-1.02); POTASSIUM 4.4 mmol/L (3.5-5.1); PROTEIN, TOTAL 7.8 g/dL (6.4-8.2)
[2023-12-08] MEDS ORDERED: FUROSEMIDE 20 MG/2 ML VIAL IV ONE (21:45)
[2023-12-08] MEDS ORDERED: LASIX20 MG PO (22:21)
[2023-12-08 22:55] VITALS: BP 121/68
--- NOTE | 2023-12-09 13:35 | EKG ---
[facility] [address] [facility] [place] [address] Signed Sinus tachycardia Nonspecific T wave abnormality Abnormal ECG When compared with ECG of 05-DEC-2023 22:48, No significant change was found Confirmed by Wood Velez MD () on 12/09/2023 1:35:18 PM Electronically Signed By: WOOD VELEZ MD 12/09/23 1335 PATIENT NAME: JESUS JUAREZ Electrocardiogram DATE OF : 50 PHYSICIAN: WOOD VELEZ MD REPORT #: [id number] REPORT IS CONFIDENTIAL AND NOT TO BE RELEASED WITHOUT AUTHORIZATION
== END 2023-12-08 22:55 | disposition home or self-care (01) ==
LOC: ED 17:23
PROVIDERS: Emergency Medicine
DX: I11.0 Hypertensive heart disease with heart failure (principal); I50.9 Heart failure, unspecified; E11.9 Type 2 diabetes mellitus without complications; Z88.5 Allergy status to narcotic agent; Z79.890 Hormone replacement therapy; Z79.899 Other long term (current) drug therapy; Z79.01 Long term (current) use of anticoagulants; Z88.8 Allergy status to other drugs, medicaments and biological substances; Z91.09 Other allergy status, other than to drugs and biological substances
CPT/HCPCS: 36415; 71045; 71260; 74177; 80053; 83690; 83735; 83880; 84484; 85025; 85379; 93005; 93010; J1940; Q9967

== ENCOUNTER 2024-07-20 05:50 | Day surgery (SDC) | payer MEDICARE, OTHER ==
[2024-07-14 14:41] VITALS: BP 116/80
[~2024-07-20] VITALS: Ht 172.7 cm; Wt 104.5 kg
[~2024-07-20 05:50] MED LIST changes: +CLOTRIMAZOLE45 G1 TOP; +COLCRYS0.6 MG PO; +ELIMITE60 GM TOP; +LACTATED RINGER'S 1,000 ML IV SCH; +LASIX20 MG PO; +NITROSTAT0.4 MG SL
[2024-07-20 06:19] VITALS: BP 118/59
[2024-07-20] MEDS ORDERED: ALDACTONE25 MG PO (06:24)
[2024-07-20] MEDS ORDERED: ALLOPURINOL100 MG PO (06:25)
[2024-07-20] MEDS ORDERED: CEFAZOLIN SODIUM 2 GM/20 ML SYR IV SCH (07:00)
[2024-07-20] MEDS ORDERED: LIDOCAINE HCL 1% 5 ML SDV INJ ONE (07:00)
[2024-07-20] MEDS ORDERED: IBLOOD GLUCOSE TEST STRIP 1 EA TEST VI PRN (07:00)
[2024-07-20] MEDS ORDERED: LIDOCAINE HCL 2% 5 ML SDV ONE (07:22)
[2024-07-20] MEDS ORDERED: propofoL 200 MG/20 ML VIAL ONE (07:22)
--- NOTE | 2024-07-20 07:36 | NUR ---
VISITED DURING SPIRITUAL CARE ROUNDS. PT SUPPORTED BY TUNGSTEN TENDER IN ROOM. NO IMMEDIATE CONCERNS. LINEMAN APPRENTICE PROVIDED SUPPORTIVE PRESENCE, HOSPITALITY, PRAYER, FACILITATED INTERACTION THERAPY ANIMAL. PT AND TUNGSTEN TENDER EXPRESSED GRATITUDE, EVERT SOURCE OF STRENGTH.
[2024-07-20 09:01] VITALS: BP 115/68
--- NOTE | 2024-07-20 09:32 | NUR ---
07/20/24 0932 Raquel Magdaleno 0833 PT ARRIVED IN PACU SLEEPY. ABD SOFT AND PASSING FLATUS. 0845 PT AWAKE AND TALKING TO STAFF. NO C/O'S. 0855 SITTING AT BEDSIDE SIPPING ON WATER. DC INSTRUCTIONS GIVEN. ALL QUESTIONS ANSWERED. 0913 LEFT VIA W/C.
--- NOTE | 2024-07-20 12:42 | OR ---
[facility] [address], [place] [address] Signed DATE OF OPERATION: 07/20/2024 SURGEON: Cheri Mccabe MD PREOPERATIVE DIAGNOSES: 1. Positive Cologuard test. 2. Multiple medical problems including history of lymphocytic colitis 2004, chronic anticoagulation (Eliquis, morbid obesity). POSTOPERATIVE DIAGNOSES: 1. Sessile polyp of sigmoid colon (resected). 2. Sigmoid diverticulosis. 3. Mild cecitis. 4. Internal hemorrhoids. PROCEDURES: 1. Total colonoscopy to cecum with biopsy of cecum. 2. Cold snare polypectomy sigmoid polyp. INDICATION: This 74-year-old white woman is a patient of MORRIS Fletcher. She is known to me from the past essentially 30 years ago, having undergone a parathyroid adenoma resection by me in 1994. 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 She is chronically anticoagulated with Eliquis. Medications do include Plaquenil for other medical issues. Anticoagulation is related to atrial fibrillation. She was found to have a positive Cologuard test December 02, 2023 and is referred for colonoscopy on that basis. The risk of bleeding, infection, perforation, and so forth related to colonoscopy was reviewed with her in detail. She understands and wished to proceed. FINDINGS: The prep was good. Complete colonoscopy was undertaken to the cecum without question. Full intubation of the cecum was accomplished. The cecum itself did have inflammation for which biopsies were obtained. Diverticulosis was relatively heavy in the left and sigmoid colon. There was a sessile polyp in the sigmoid which was completely resected by snare technique. Retroflexed view confirmed internal hemorrhoids as well. There was no sign of generalized colitis. DESCRIPTION OF PROCEDURE: Electronically Signed By: CHERI MCCABE MD 07/20/24 1242 PATIENT NAME: JESUS JUAREZ OPERATIVE REPORT DATE OF : 50 REPORT #: [id number] PHYSICIAN: CHERI MCCABE MD PCP: LARA PATRICK NP REPORT IS CONFIDENTIAL AND NOT TO BE RELEASED WITHOUT AUTHORIZATION [facility] [address], [place] [address] Signed The patient was brought to the surgical endoscopy suite and placed in the lateral decubitus position, given intravenous sedation by propofol infusional technique by the gerentological physiotherapist. Full cardiopulmonary monitoring was maintained of course. Digital rectal examination was normal. An Olympus video colonoscope was passed in the rectum and manipulated throughout the colon noting numerous diverticula of the sigmoid and left colon. The scope was ultimately advanced to the cecum. Ileocecal valve and appendiceal orifices were identified as normal. Cecal mucosa was quite obviously inflamed. Multiple biopsies were taken of the cecum to affirm cecal colitis. The scope was then withdrawn and examination throughout undertaken showing no sign of abnormality other than diverticular changes of the left colon and sigmoid until the distal sigmoid where a sessile polyp was noted. Narrow-band imaging confirmed this likely to be an adenoma and most likely the underlying cause of her positive Cologuard test. The lesion was excised with cold snare technique. Specimen was passed for pathology. There was no untoward bleeding at the incision site. The scope was further withdrawn and retroflexed view of the rectum undertaken showing internal hemorrhoids, which were relatively large, certainly not bleeding at this time. The scope was straightened, withdrawn and removed. The patient was taken to the recovery room in good condition. CONCLUDING DIAGNOSES: 1. Polyp of sigmoid (resected). 2. Diverticulosis. 3. Cecitis. 4. Internal hemorrhoids. PLAN: Would recommend repeat colonoscopy in 7 to 10 years. We additionally recommend a high-fiber diet or fiber supplement. I will review her pathology reports as regard to the mild cecitis. She appears not to be bothered by any specific complaints of diarrhea currently. She will return to the ongoing care of MORRIS Fletcher. Cheri Mccabe MD Electronically Signed By: CHERI MCCABE MD 07/20/24 1242 PATIENT NAME: JESUS JUAREZ OPERATIVE REPORT DATE OF : 50 REPORT #: [id number] PHYSICIAN: CHERI MCCABE MD PCP: LARA PATRICK NP REPORT IS CONFIDENTIAL AND NOT TO BE RELEASED WITHOUT AUTHORIZATION [facility] [address] [place] [id number] Signed SACHIN/AYDEE /[id number] cc: Dr. Patrick Copies: ~ Electronically Signed By: CHERI MCCABE MD 07/20/24 1242 PATIENT NAME: ANNJESSU OPERATIVE REPORT DATE OF : 50 REPORT #: [id number] PHYSICIAN: CHERI MCCABE MD PCP: LARA PATRICK NP REPORT IS CONFIDENTIAL AND NOT TO BE RELEASED WITHOUT AUTHORIZATION
== END 2024-07-20 09:13 | disposition home or self-care (01) ==
LOC: DS 05:50
PROVIDERS: ATTEND Surgery
PROC: 0DBN8ZZ Excision of Sigmoid Colon, Via Natural or Artificial Opening Endoscopic (ICD-10-PCS; 2024-07-20)
PROC: 0DBG8ZZ Excision of Left Large Intestine, Via Natural or Artificial Opening Endoscopic (ICD-10-PCS; 2024-07-20)
PROC: 0DBH8ZZ Excision of Cecum, Via Natural or Artificial Opening Endoscopic (ICD-10-PCS; principal; 2024-07-20 07:30)
DX: D12.5 Benign neoplasm of sigmoid colon (principal); K63.5 Polyp of colon; K57.30 Diverticulosis of large intestine without perforation or abscess without bleeding; K64.8 Other hemorrhoids; K52.9 Noninfective gastroenteritis and colitis, unspecified; D35.1 Benign neoplasm of parathyroid gland; I48.91 Unspecified atrial fibrillation; Z88.2 Allergy status to sulfonamides; Z88.5 Allergy status to narcotic agent; Z88.8 Allergy status to other drugs, medicaments and biological substances; Z90.49 Acquired absence of other specified parts of digestive tract; Z79.899 Other long term (current) drug therapy
CPT/HCPCS: 00811; 88305; J0690; J2003; J2704; J7121

== ENCOUNTER 2024-07-24 06:58 | Emergency (ER) | payer MEDICARE, OTHER ==
[~2024-07-24] VITALS: Ht 172.7 cm; Wt 102.1 kg
[~2024-07-24 06:58] MED LIST changes: +ALDACTONE25 MG PO; -LACTATED RINGER'S 1,000 ML IV SCH
[2024-07-24 07:12] LABS: BASOPHILS 0.7 % (0-2); EOSINOPHILS 0.5 % (0-6); HEMATOCRIT 44.5 % (35.0-50.0); HEMOGLOBIN 15.1 g/dL (12.0-18.0); LYMPHOCYTES 28.7 % (24-44); MCH 32.9 (27-36); MCHC 33.9 g/dl (30-36); NEUTROPHILS 60.1 % (39-80); PLATELET COUNT 278 K/uL (140-440); RBC 4.59 M/ul (4.3-5.7); RDW 15.4 (10.5-15.0)
[2024-07-24 07:33] LABS: ALBUMIN 3.5 g/dL (3.4-5.0); ALBUMIN/GLOBULIN RATIO 0.81 (1.1-2.4); ANION GAP 9.9 (7-21); BILIRUBIN, TOTAL 0.6 mg/dL (0.2-1.0); BUN/CREATININE RATIO 22.1 (6.0-28.6); CALCIUM 9.4 mg/dL (8.5-10.1); CREATININE, SERUM 0.95 mg/dL (0.55-1.02); POTASSIUM 2.9 mmol/L (3.5-5.1); PROTEIN, TOTAL 7.8 g/dL (6.4-8.2)
[2024-07-24] MEDS ORDERED: POTASSIUM CHLORIDE 10 MEQ TABCR PO ONE (08:15)
[2024-07-24 08:22] VITALS: BP 127/70
--- NOTE | 2024-07-25 21:33 | EKG ---
[facility] [address] [facility] [place] [address] Signed Sinus rhythm with premature atrial complexes Minimal voltage criteria for LVH, may be normal variant ( Sewaren product ) Nonspecific T wave abnormality Prolonged QT Abnormal ECG When compared with ECG of 14-JUL-2024 14:45, premature atrial complexes are now present Confirmed by Lety Thomas DO ([id number]) on 07/25/2024 9:32:41 PM Electronically Signed By: LETY THOMAS DO 07/25/24 2133 PATIENT NAME: JESUS JUAREZ Electrocardiogram DATE OF : 50 PHYSICIAN: LETY THOMAS DO REPORT #: [id number] REPORT IS CONFIDENTIAL AND NOT TO BE RELEASED WITHOUT AUTHORIZATION
== END 2024-07-24 08:22 | disposition home or self-care (01) ==
LOC: ED 06:58
PROVIDERS: Emergency Medicine
DX: R07.89 Other chest pain (principal); K44.9 Diaphragmatic hernia without obstruction or gangrene; I48.0 Paroxysmal atrial fibrillation; I11.0 Hypertensive heart disease with heart failure; I50.9 Heart failure, unspecified; K21.9 Gastro-esophageal reflux disease without esophagitis; E03.9 Hypothyroidism, unspecified; E78.5 Hyperlipidemia, unspecified; E11.9 Type 2 diabetes mellitus without complications; M10.9 Gout, unspecified; Z86.16 Personal history of COVID-19; Z79.01 Long term (current) use of anticoagulants; Z88.2 Allergy status to sulfonamides; Z88.5 Allergy status to narcotic agent; Z88.1 Allergy status to other antibiotic agents; Z88.8 Allergy status to other drugs, medicaments and biological substances; Z91.048 Other nonmedicinal substance allergy status; Z79.890 Hormone replacement therapy; Z79.84 Long term (current) use of oral hypoglycemic drugs; Z79.1 Long term (current) use of non-steroidal anti-inflammatories (NSAID); Z79.899 Other long term (current) drug therapy
CPT/HCPCS: 36415; 71045; 80053; 83690; 83880; 84484; 85025; 93005; 93010; 99285-25; A9270

== ENCOUNTER 2024-11-19 16:59 | Emergency (ER) | payer MEDICARE, OTHER ==
[~2024-11-19] VITALS: Ht 172.7 cm; Wt 102.3 kg
[2024-11-19] MEDS ORDERED: ALLOPURINOL100 MG PO (17:53)
[2024-11-19] MEDS ORDERED: LACTATED RINGER'S 1,000 ML IV ONE (21:00)
[2024-11-19] MEDS ORDERED: PANTOPRAZOLE SODIUM 40 MG/10 ML VIAL IV ONE (21:00)
[2024-11-19 21:55] LABS: HEMATOCRIT 45.4 % (34.1-44.9); HEMOGLOBIN 14.8 g/dL (11.2-15.7); LYMPHOCYTES 27.9 % (19.3-51.7); MCH 31.1 PG (25.6-32.2); MCHC 32.6 g/dL (32.2-35.5); MCV 95.4 fL (79.4-94.8); MONOCYTES 9.2 % (4.7-12.5); NEUTROPHILS 59.9 % (34.0-71.1); PLATELET COUNT 300 K/uL (182-369); RBC 4.76 M/uL (3.93-5.22)
[2024-11-19 22:07] LABS: INR 1.1 (0.80-1.30); PROTIME 13.8 Sec (11.2-14.2)
[2024-11-19 22:09] LABS: PARTIAL THROMBOPLASTIN TIME 31.2 Sec (22.9-41.3)
[2024-11-19 22:12] LABS: ALBUMIN 3.3 g/dL (3.4-5.0); ALBUMIN/GLOBULIN RATIO 0.8 (1.1-2.4); ANION GAP 8.5 (7-21); BILIRUBIN, TOTAL 0.6 mg/dL (0.2-1.0); BUN/CREATININE RATIO 21.35 (6.0-28.6); CALCIUM 9.2 mg/dL (8.5-10.1); CREATININE, SERUM 1.03 mg/dL (0.55-1.02); POTASSIUM 3.5 mmol/L (3.5-5.1); PROTEIN, TOTAL 7.4 g/dL (6.4-8.2)
[2024-11-19 22:35] LABS: ABO O; ANTIBODY SCREEN NEGATIVE; RH POSITIVE
[2024-11-19 22:38] LABS: BILIRUBIN, URINE NEGATIVE (negative); BLOOD/HGB, URINE TRACE-L (Negative); KETONE, URINE NEGATIVE (Negative); LEUK ESTERASE, URINE NEGATIVE (negative); NITRITE, URINE NEGATIVE (negative)
[2024-11-19] MEDS ORDERED: ANUSOL-HC25 MG PR (22:59)
[2024-11-19] MEDS ORDERED: HYDROCORTISONE ACETATE 25 MG SUPP PR ONE (23:00)
[2024-11-19 23:04] LABS: BACTERIA, URINE RARE /hpf (negative); CASTS, URINE NONE SEEN \\lpf; CRYSTALS, URINE NONE SEEN (0-1+); EPITHELIAL CELLS, URINE SQUAMOUS 2+ /lpf (0-1+)
[2024-11-19 23:05] LABS: COLLECTION TYPE, URINE CLEAN CATCH; REFLEX CULTURE, URINE No (No)
[2024-11-19 23:12] VITALS: BP 121/79
--- NOTE | 2024-11-21 12:14 | EKG ---
[facility] [address] [facility] [place] [address] Signed Normal sinus rhythm Nonspecific T wave abnormality Prolonged QT Abnormal ECG When compared with ECG of 24-JUL-2024 07:02, premature atrial complexes are no longer present Confirmed by Lety Thomas DO ([id number]) on 11/21/2024 12:14:35 PM Electronically Signed By: LETY THOMAS DO 11/21/24 1214 PATIENT NAME: JESUS JUAREZ Electrocardiogram DATE OF : 50 PHYSICIAN: LETY THOMAS DO REPORT #: [id number] REPORT IS CONFIDENTIAL AND NOT TO BE RELEASED WITHOUT AUTHORIZATION
== END 2024-11-19 23:13 | disposition home or self-care (01) ==
LOC: ED 16:59
PROVIDERS: Internal Medicine
DX: K64.8 Other hemorrhoids (principal); K21.9 Gastro-esophageal reflux disease without esophagitis; E03.9 Hypothyroidism, unspecified; E78.5 Hyperlipidemia, unspecified; M19.90 Unspecified osteoarthritis, unspecified site; E11.9 Type 2 diabetes mellitus without complications; I11.0 Hypertensive heart disease with heart failure; I50.9 Heart failure, unspecified; Z79.899 Other long term (current) drug therapy; Z88.8 Allergy status to other drugs, medicaments and biological substances; Z88.1 Allergy status to other antibiotic agents; Z91.018 Allergy to other foods; Z88.5 Allergy status to narcotic agent
CPT/HCPCS: 36415; 80053; 81001; 85025; 85610; 85730; 86850; 86900; 86901; 93005; 93010; 96374; 99283-25; J2470; J7121